=== PATIENT | male | born 1970 | race Caucasian/White ===

== ENCOUNTER 2017-02-08 10:10 | Outpatient (CLI) | payer BC, OTHER ==
[~2017-02-08] VITALS: Ht 180.3 cm; Wt 99.8 kg
[~2017-02-08 10:10] MED LIST: /BISO10TA; /PANT40TA; ACET65TA; AMLO10TA; AVAP300T; BISOPROLOL; CARV6.25 PO; CORE6.25; FENO145T PO; FEXO180T58 PO; FLUT1SPR2; HYDROCHLOROTHIAZIDE; LISI20TA PO; PROAAER10 INH; [UNRECOGNIZED DRUG - MIXTURE]; [UNRECOGNIZED DRUG - MIXTURE]; [UNRECOGNIZED DRUG - OTHER]
[2017-02-08] MEDS ORDERED: NS 1,000 ML IV ONE (10:15)
--- NOTE | 2017-02-08 10:52 | ROOR ---
Patient Name: Wiley Garcia Procedure Date: 02/08/2017 10:36 AM Date of : 1970 Age: 46 Room: [facility] Gender: Male Note Status: Finalized Procedure: Colonoscopy Indications: Screening for colorectal malignant neoplasm Providers: Lucas Hernandez Jr, MD Referring MD: LEXI FELIX Requesting Provider: Medicines: Propofol per Anesthesia Complications: No immediate complications. Procedure: Pre-Anesthesia Assessment: - Prior to the procedure, a History and Physical was performed, and patient medications and allergies were reviewed. The patient is competent. The risks and benefits of the procedure and the sedation options and risks were discussed with the patient. All questions were answered and informed consent was obtained. Patient identification and proposed procedure were verified by the physician and the nurse in the pre-procedure area and in the procedure room. Mental Status Examination: alert and oriented. Airway Examination: normal oropharyngeal airway and neck mobility. Respiratory Examination: clear to auscultation. CV Examination: normal. ASA Grade Assessment: II - A patient with mild systemic disease. After reviewing the risks and benefits, the patient was deemed in satisfactory condition to undergo the procedure. The anesthesia plan was to use moderate sedation / analgesia (conscious sedation). Immediately prior to administration of medications, the patient was re-assessed for adequacy to receive sedatives. The heart rate, respiratory rate, oxygen saturations, blood pressure, adequacy of pulmonary ventilation, and response to care were monitored throughout the procedure. The physical status of the patient was re-assessed after the procedure. The Colonoscope was introduced through the anus and advanced to the cecum, identified by appendiceal orifice and ileocecal valve. The colonoscopy was performed without difficulty. The patient tolerated the procedure well. The quality of the bowel preparation was adequate and good. Findings: The rectum, recto-sigmoid colon, descending colon, transverse colon, ascending colon, cecum, appendiceal orifice and ileocecal valve appeared normal. Multiple small-mouthed diverticula were found in the sigmoid colon. Impression: - The rectum, recto-sigmoid colon, descending colon, transverse colon, ascending colon, cecum, appendiceal orifice and ileocecal valve are normal. - Diverticulosis in the sigmoid colon. - No specimens collected. Recommendation: - Repeat colonoscopy in 10 years for screening purposes. Lucas Hernandez MD Lucas Hernandez Jr, MD 02/08/2017 10:51:49 AM This report has been signed electronically. Number of Addenda: 0 Note Initiated On: 02/08/2017 10:36 AM Estimated Blood Loss: Estimated blood loss: none.
[2017-02-08] MEDS ORDERED: PROPOFOL 200 MG/20 ML VIAL As Ordered ONE (11:12)
[2017-02-08] MEDS ORDERED: LIDOCAINE 2% INJ 100 MG/5 ML SDV (FOR ANES.) As Ordered ONE (11:12)
[2017-02-08 11:20] VITALS: BP 145/103
== END 2017-02-08 11:31 | disposition home or self-care (01) ==
LOC: M OPP 10:10
PROVIDERS: ATTEND Surgery
DX: Z12.11 Encounter for screening for malignant neoplasm of colon (principal); K57.92 Diverticulitis of intestine, part unspecified, without perforation or abscess without bleeding; K57.30 Diverticulosis of large intestine without perforation or abscess without bleeding; I10 Essential (primary) hypertension; E78.5 Hyperlipidemia, unspecified; Z87.09 Personal history of other diseases of the respiratory system; R06.83 Snoring; E53.8 Deficiency of other specified B group vitamins; D69.6 Thrombocytopenia, unspecified; D64.9 Anemia, unspecified; N52.9 Male erectile dysfunction, unspecified; Z88.5 Allergy status to narcotic agent; Z79.899 Other long term (current) drug therapy

== ENCOUNTER 2017-05-27 09:58 | Inpatient (IN) | payer BC, OTHER ==
[~2017-05-27] VITALS: Ht 180.3 cm; Wt 99.6 kg
[2017-05-27] MEDS ORDERED: NS 1,000 ML IV ONE ×3 (10:45→18:00)
[2017-05-27 11:01] LABS: BASO % 0.2 % (0.0-1.0); EOS % 0.3 % (0.0-3.0); IMMATURE GRANULOCYTE % 0.5 % (0-0); LYMPH # 0.8 10^3/uL (1.5-4.5); LYMPH % 8.8 % (24.0-44.0); MEAN CORPUSCULAR HEMOGLOBIN 35.2 pg (27.0-33.0); MEAN CORPUSCULAR VOLUME 97.9 fl (80.0-96.0); MONO # 0.8 10^3/uL (0.0-0.8); MONO % 9.5 % (0.0-5.0); NEUTROPHILS # 7.1 10^3/uL (1.8-7.7); NEUTROPHILS % 80.7 % (36.0-66.0); PLATELET COUNT, AUTOMATED 191 10^3/uL (150-450); RED CELL DISTRIBUTION WIDTH 11.1 % (11.5-14.5); WHITE BLOOD COUNT 8.7 10^3/uL (4.0-10.0)
[2017-05-27 11:12] LABS: ALBUMIN 3.2 GM/DL (3.2-5.2); ALBUMIN/GLOBULIN RATIO 0.64 (1.00-1.93); ALKALINE PHOSPHATASE 51 U/L (45-117); ALT/SGPT 25 U/L (12-78); ANION GAP 10 MEQ/L (8-16); AST/SGOT 20 U/L (7-37); BILIRUBIN,DIRECT 0.4 MG/DL (0.0-0.2); BILIRUBIN,TOTAL 1.2 MG/DL (0.2-1.0); BLOOD UREA NITROGEN 8 MG/DL (7-18); CALCIUM LEVEL 8.3 MG/DL (8.5-10.1); CARBON DIOXIDE LEVEL 28 MEQ/L (21-32); CHLORIDE LEVEL 89 MEQ/L (98-107); CREATININE FOR GFR 1.01 MG/DL (0.70-1.30); GLOMERULAR FILTRATION RATE > 60.0 (>60); GLUCOSE, FASTING 120 MG/DL (70-105); POTASSIUM SERUM 3.2 MEQ/L (3.5-5.1); SODIUM LEVEL 127 MEQ/L (136-145); TOTAL PROTEIN 8.2 GM/DL (6.4-8.2)
[2017-05-27 11:41] LABS: MUCUS, URINE RFX SMALL (NEGATIVE); SQUAM EPITHELIAL CELL UR AURFX 0 /HPF (0-6)
--- NOTE | 2017-05-27 12:47 | REP ---
PA and lateral chest: Comparison is 09/13/2009. The lung owens are clear. The cardiac size is normal The alber, mediastinum, and bony thorax are unremarkable. Impression: Negative PA and lateral chest. There is no interval change. Signed by Vasiliy Barajas MD 05/27/2017 12:39 P
[2017-05-27 12:48] LABS: FREE T4 1.14 NG/DL (0.76-1.46); OSMOLALITY SERUM 266 MOSM/KG (275-295)
--- NOTE | 2017-05-27 13:06 | REP ---
CT abdomen pelvis without IV and oral contrast: Comparison is 09/14/2014. There is pericolonic phlegmon of the distal sigmoid colon where yet crosses the midline from left to right, compatible with diverticulitis. There are numerous sigmoid diverticula. There is focal colonic wall thickening in the location of the diverticulitis which could be inflammatory or neoplastic. There are a few tiny air bubbles contained within the pericolonic phlegmon. There is no focal fluid collection. There is no pneumoperitoneum or ascites. The appendix is identified and is near the phlegmon but is unremarkable. The visualized lung owens are unremarkable. The unenhanced hepatic parenchyma, gallbladder, pancreas, spleen, adrenals and kidneys are unremarkable. The abdominal aorta is unremarkable. The bowel is otherwise unremarkable. Pelvis: The bladder is unremarkable. There are several vesicle calcifications. There is a calcified colonic appendage at the rectosigmoid junction. This is unchanged. Impression: Focal diverticulitis of the distal sigmoid colon in the right lower quadrant where the sigmoid crosses from left to right. There are is associated colonic bowel wall thickening, nonspecific, inflammatory versus neoplastic. The appendix has a normal appearance. There is no ascites or adenopathy. Signed by Vasiliy Barajas MD 05/27/2017 12:57 P
[2017-05-27] MEDS ORDERED: CIPROFLOXACIN 400 MG in APPROPRIATE DILUENT 1 EA IV ONE (14:15)
[2017-05-27] MEDS ORDERED: metroNIDAZOLE 500 MG in APPROPRIATE DILUENT 1 EA IV ONE (14:15)
[2017-05-27] MEDS ORDERED: ONDANSETRON 4MG/2ML VIAL (J2405) IV PRN (14:45)
[2017-05-27] MEDS ORDERED: POTASSIUM CHLORIDE 10 MEQ SR TABLET PO ONE (14:45)
[2017-05-27 15:13] LABS: MAGNESIUM LEVEL 1.7 MG/DL (1.8-2.4); URIC ACID 7.1 MG/DL (3.5-7.2)
[2017-05-27] MEDS ORDERED: ALBUTEROL 90 MCG/ACT 8GM HFA INHALER INH PRN (17:00)
[2017-05-27] MEDS ORDERED: FEXOFENADINE 60 MG TAB PO PRN (17:00)
[2017-05-27] MEDS ORDERED: FLUTICASONE PROP 0.05% NASAL SPRAY 16 GM (FLONASE) PRN (17:00)
--- NOTE | 2017-05-27 17:08 | HPE ---
DATE OF ADMISSION: 05/27/2017 PRIMARY CARE PROVIDER: Dr. Garcia. CHIEF COMPLAINT: Abdominal pain. HISTORY OF PRESENT ILLNESS: This is a 46-year-old male with a history of hypertension, diverticulitis. Colonoscopy by Dr. Hernandez in January 2017 showed diverticulosis. Had two prior episodes of diverticulitis in September 2014 and January 2017, who presented to the emergency room with pelvic and abdominal pain, left lower quadrant, since , described as pressure, persistent, on and off, prompting the patient to keep to a liquid diet. The patient feels better when he lies down. Describes the pain as intense. No medications taken. Had been drinking Gatorade and soups at home with no vomiting or nausea. Denies any fevers or chills. Denies dysuria, urgency, frequency, cough, shortness of breath, palpitations. In the emergency room was found to have acute diverticulitis, distal sigmoid colon in the right lower quadrant where the sigmoid crosses from left to right. The patient was afebrile with no white count. Sodium level 127, potassium 3.2. PAST MEDICAL HISTORY: 1. Diverticulitis. 2. Diverticulosis. 3. Hypertension. 4. Macrocytic anemia. 5. Chronic leukopenia. 6. Dyslipidemia. PAST SURGICAL HISTORY: 1. Colonoscopy. 2. [place] teeth extraction. 3. Hernia. ALLERGIES: No known drug allergies. HOME MEDICATIONS: - Coreg 6.25 mg twice a day - fexofenadine 180 daily - fluticasone as needed - albuterol as needed - fenofibrate 145 at night SOCIAL HISTORY: Social alcohol use. No cigarette use. 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 FAMILY HISTORY: Grandfather of myocardial infarction at age 62. Sister with hypothyroidism. REVIEW OF SYSTEMS: Per history of present illness. 12-point system negative. PHYSICAL EXAMINATION: Temperature 97.6, pulse 87, respiratory rate 18, blood pressure 131/83, 100% on room air. GENERAL: Awake, alert, oriented times three. Answering questions appropriately. Pupils are round, reactive. Anicteric sclerae. No jaundice. No jugular venous distention (JVD). Moist mucous membranes. LUNGS: Clear to auscultation. No wheezing or rales. HEART: S1, S2. Sinus. ABDOMEN: Soft. Tender in the left lower quadrant. Right lower quadrant with no rebound, guarding. Positive bowel sounds times four quadrants. EXTREMITIES: No edema. LABORATORY DATA: White count 8.7, hemoglobin 13, hematocrit 37, platelet count 191. Sodium 127, potassium 3.2, chloride 89, bicarbonate 28, BUN 8, creatinine 1, glucose 120. Chest x-ray negative. Lungs are clear. CT of the abdomen and pelvis with diverticulitis left distal sigmoid colon, right lower quadrant as it crosses from left to right. ASSESSMENT AND PLAN: 46-year-old male with a history of hypertension, chronic leukopenia, two prior episodes of diverticulitis, colonoscopy by Dr. Hernandez in January 2017 showed diverticulosis. He presents with a several day history of bilateral lower quadrant pain and found to have acute diverticulitis of the sigmoid colon as it crosses from left to right. The patient is being admitted as an inpatient for two midnights. Assigned to Dr. Breanna Young for the following issues: 1. Acute diverticulitis. Nothing by mouth status, IV fluids. Cipro, Flagyl intravenously. Surgical consultation with Dr. Hampton to assess bowel wall thickening. No signs of abscess. Afebrile. 2. Hypertension. Resume home dose of Coreg with holding parameters. 3. History of chronic leukopenia. Normal white count currently. 4. Deep vein thrombosis (DVT) prophylaxis. Subcutaneous Lovenox. The patient will be signed out to Dr. Young at 7:00 p.m. on 05/27/2017. [facility]
[2017-05-27 17:10] VITALS: BP 134/83
[2017-05-27] MEDS ORDERED: GLUCAGON FOR INJ 1 MG VIAL (J1610) SC PRN (18:00)
[2017-05-27] MEDS ORDERED: DEXTROSE 50% 50 ML SYRINGE IV PRN (18:00)
[2017-05-27] MEDS ORDERED: GLUCOSE 4 GM CHEW TABLET PO PRN (18:00)
[2017-05-27] MEDS ORDERED: MAG SULF 1GM/100ML (MAG RUN) 1 GM in APPROPRIATE DILUENT 1 EA IV ONE (18:00)
[2017-05-27] MEDS ORDERED: traMADol 50 MG TAB PO PRN (18:00)
[2017-05-27] MEDS ORDERED: MORPHINE 2 MG/ML 1ML SYRINGE IV PRN (18:00)
[2017-05-27 18:43] LABS: ANION GAP 6 MEQ/L (8-16); BLOOD UREA NITROGEN 7 MG/DL (7-18); CALCIUM LEVEL 7.9 MG/DL (8.5-10.1); CARBON DIOXIDE LEVEL 29 MEQ/L (21-32); CHLORIDE LEVEL 95 MEQ/L (98-107); CREATININE FOR GFR 0.76 MG/DL (0.70-1.30); GLOMERULAR FILTRATION RATE > 60.0 (>60); GLUCOSE, FASTING 103 MG/DL (70-105); POTASSIUM SERUM 3.6 MEQ/L (3.5-5.1); SODIUM LEVEL 130 MEQ/L (136-145)
[2017-05-27 20:00] VITALS: BP 136/91
[2017-05-27] MEDS: CARVedilol 6.25 MG TAB PO SCH (20:18)
[2017-05-27] MEDS ORDERED: FENOFIBRATE 145 MG TAB (TRICOR) PO SCH (21:00)
[2017-05-27] MEDS ORDERED: ENOXAPARIN 40 MG/0.4 ML SYRINGE (J1650) SC SCH (21:00)
[2017-05-27 23:15] LABS: ANION GAP 8 MEQ/L (8-16); BLOOD UREA NITROGEN 7 MG/DL (7-18); CALCIUM LEVEL 7.9 MG/DL (8.5-10.1); CARBON DIOXIDE LEVEL 26 MEQ/L (21-32); CHLORIDE LEVEL 98 MEQ/L (98-107); CREATININE FOR GFR 0.83 MG/DL (0.70-1.30); GLOMERULAR FILTRATION RATE > 60.0 (>60); GLUCOSE, FASTING 103 MG/DL (70-105); POTASSIUM SERUM 3.9 MEQ/L (3.5-5.1); SODIUM LEVEL 132 MEQ/L (136-145)
[2017-05-28] MEDS ORDERED: metroNIDAZOLE 500 MG in APPROPRIATE DILUENT 1 EA IV ONE ×2
[2017-05-28 04:00] VITALS: BP 121/69
[2017-05-28] MEDS ORDERED: CIPROFLOXACIN 400 MG in APPROPRIATE DILUENT 1 EA IV SCH (04:00)
[2017-05-28 06:56] LABS: BASO % 0.3 % (0.0-1.0); EOS % 0.6 % (0.0-3.0); IMMATURE GRANULOCYTE % 0.6 % (0-0); LYMPH % 15.4 % (24.0-44.0); MEAN CORPUSCULAR HEMOGLOBIN 35.4 pg (27.0-33.0); MEAN CORPUSCULAR HGB CONC 35.7 g/dl (32.0-36.5); MONO # 0.9 10^3/uL (0.0-0.8); MONO % 13.3 % (0.0-5.0); NEUTROPHILS # 4.4 10^3/uL (1.8-7.7); NEUTROPHILS % 69.8 % (36.0-66.0); PLATELET COUNT, AUTOMATED 166 10^3/uL (150-450); RED CELL DISTRIBUTION WIDTH 11.3 % (11.5-14.5); WHITE BLOOD COUNT 6.4 10^3/uL (4.0-10.0)
[2017-05-28 07:19] LABS: ANION GAP 10 MEQ/L (8-16); BLOOD UREA NITROGEN 8 MG/DL (7-18); CARBON DIOXIDE LEVEL 25 MEQ/L (21-32); CHLORIDE LEVEL 99 MEQ/L (98-107); CREATININE FOR GFR 0.75 MG/DL (0.70-1.30); GLOMERULAR FILTRATION RATE > 60.0 (>60); GLUCOSE, FASTING 100 MG/DL (70-105); MAGNESIUM LEVEL 2.1 MG/DL (1.8-2.4); POTASSIUM SERUM 3.5 MEQ/L (3.5-5.1); SODIUM LEVEL 134 MEQ/L (136-145)
[2017-05-28] MEDS ORDERED: metroNIDAZOLE 500 MG in APPROPRIATE DILUENT 1 EA IV SCH (08:00)
[2017-05-28 08:02] VITALS: BP 144/94
[2017-05-28 08:04] VITALS: BP 144/94
[2017-05-28] MEDS: CARVedilol 6.25 MG TAB PO SCH (08:04)
[2017-05-28 10:40] LABS: FOLATE 15.1 NG/ML (>5.4)
[2017-05-28] MEDS ORDERED: FLAG500T PO (11:23)
[2017-05-28] MEDS ORDERED: CIPR-249 PO (11:23)
--- NOTE | 2017-05-28 17:33 | DS.PDOC ---
Discharge Summary General Date of Admission May 27, 2017 at 14:35 Date of Discharge 05/28/2017 Discharge Summary PRIMARY CARE PHYSICIAN: Jose Chanel ATTENDING AT TIME OF DISCHARGE: Dr. Young DISCHARGE DIAGNOS(E)S: 1. Acute diverticulitis with a history of diverticulosis 2. Hypertension 3. History of chronic leukopenia, white count normal during this hospitalization 4. History of macrocytic anemia 5. Dyslipidemia 6. Hyponatremia HPI & HOSPITAL COURSE: Mr. Garcia is a 46-year-old male who presented to the emergency department with abdominal pain. A CT of the abdomen and pelvis shows focal diverticulitis of the distal sigmoid colon with associated colonic mural thickening. The case was discussed with Dr. Hampton of general surgery who does not feel that the mural thickening requires any acute intervention. It is her recommendation that we continue conservative measures such as a low residual diet and ciprofloxacin and metronidazole. The patient was feeling significantly better this morning, he did tolerate his breakfast and lunch without any issues, and he does appear to be stable for discharge at this time. While inpatient a vitamin B12 and folate were checked, B12 was slightly elevated , folate was within normal limits. He was found to be hyponatremic upon admission, however this has slowly improved with the administration of normal saline and his most recent Sodium was 134; it is supposed that this is secondary to an essentially liquid diet for the past 3-4 days (as patient felt that this would help resolve the abdominal pain). PHYSICAL EXAMINATION ON DISCHARGE: GENERAL: Awake, alert, oriented. He is in no acute distress. CARDIOVASCULAR EXAMINATION: Regular rate and rhythm, with no rubs, gallops, or murmur. RESPIRATORY EXAMINATION: Clear to auscultation bilaterally with no wheezes, rales, or rhonchi. ABDOMINAL EXAMINATION: Soft, nontender, nondistended. Bowel sounds present. EXTREMITIES: No clubbing or edema noted. 2+ pulses in the radial bilaterally. DISPOSITION: Home DISCHARGE INSTRUCTIONS: Follow-up with primary care provider Jose Chanel on 06/05/2017 at 11:15 AM. Also follow-up with Dr. Hernandez on 06/18/2017 at 3:40 PM. Activity as tolerated. Recommend a low residual diet for at least the next few weeks. He dietitian did come and discuss with him what a low residual diet is, and he was provided with handouts. If symptoms return, or if you experience worsening of your symptoms, please call your doctor or return to the emergency department. ITEMS THAT NEED OUTPATIENT FOLLOWUP: No pending labs or studies at this time. My preceptor for this patient encounter was physically present in the building during the encounter and was fully available. As needed, all aspects of the patient interview, examination, medical decision making process, and medical care plan development were reviewed and approved by the preceptor. Preceptor is aware and concurs with the plan as stated in the body of this note and will attest to such by his/her cosignature. Vital Signs/I&Os Vital Signs Date Time Temp Pulse Resp B/P (MAP) Pulse Ox O2 Delivery O2 Flow Rate FiO2 05/28/17 08:04 77 144/94 05/28/17 08:02 98.1 18 98 Room Air I&O- Last 24 Hours up to 6 AM 05/29/17 06:00 Intake Total 720 ml Output Total 500 ml Balance 220 ml Laboratory Data Labs 24H Laboratory Tests 2 05/27/17 18:06: Anion Gap 6L, Glomerular Filtration Rate > 60.0, Blood Urea Nitrogen 7, Creatinine 0.76, Sodium Level 130L, Potassium Level 3.6, Chloride Level 95L, Carbon Dioxide Level 29, Calcium Level 7.9L 05/27/17 22:44: Anion Gap 8, Glomerular Filtration Rate > 60.0, Blood Urea Nitrogen 7, Creatinine 0.83, Sodium Level 132L, Potassium Level 3.9, Chloride Level 98, Carbon Dioxide Level 26, Calcium Level 7.9L 05/28/17 06:42: Anion Gap 10, Glomerular Filtration Rate > 60.0, Blood Urea Nitrogen 8, Creatinine 0.75, Sodium Level 134L, Potassium Level 3.5, Chloride Level 99, Carbon Dioxide Level 25, Calcium Level 8.0L, Magnesium Level 2.1, Vitamin B12 Level 1386H, Folate 15.1, Thyroid Stimulating Hormone (TSH) 1.880 05/28/17 06:43: Immature Granulocyte % (Auto) 0.6H, White Blood Count 6.4, Red Blood Count 3.14L , Hemoglobin 11.1#L, Hematocrit 31.1L, Mean Corpuscular Volume 99.0H, Mean Corpuscular Hemoglobin 35.4H, Mean Corpuscular Hemoglobin Concent 35.7, Red Cell Distribution Width 11.3L, Platelet Count 166, Neutrophils (%) (Auto) 69.8H , Lymphocytes (%) (Auto) 15.4L, Monocytes (%) (Auto) 13.3H, Eosinophils (%) ( Auto) 0.6, Basophils (%) (Auto) 0.3, Neutrophils # (Auto) 4.4, Lymphocytes # ( Auto) 1.0L, Monocytes # (Auto) 0.9H, Eosinophils # (Auto) 0.0, Basophils # (Auto ) 0.0, Immature Granulocyte # (Auto) 0.0, Nucleated Red Blood Cells % (auto) 0.0 CBC/BMP Laboratory Tests 05/27/17 18:06 Calcium Level 7.9 L 05/27/17 22:44 Calcium Level 7.9 L 05/28/17 06:42 Calcium Level 8.0 L 05/28/17 06:43 Red Blood Count 3.14 L, Mean Corpuscular Volume 99.0 H, Mean Corpuscular Hemoglobin 35.4 H, Mean Corpuscular Hemoglobin Concent 35.7, Red Cell Distribution Width 11.3 L, Neutrophils (%) (Auto) 69.8 H, Lymphocytes (%) (Auto ) 15.4 L, Monocytes (%) (Auto) 13.3 H, Eosinophils (%) (Auto) 0.6, Basophils (% ) (Auto) 0.3, Neutrophils # (Auto) 4.4, Lymphocytes # (Auto) 1.0 L, Monocytes # (Auto) 0.9 H, Eosinophils # (Auto) 0.0, Basophils # (Auto) 0.0 Discharge Medications Scheduled (Lisinopril/Hydrochlorothi 20-12.5 mg) 1 Tab Tab, 1 TAB PO QAM, (Reported) Carvedilol (Carvedilol) 6.25 Mg Tab, 6.25 MG PO BID, (Reported) Ciprofloxacin HCl (Cipro) 500 Mg Tab, 500 MG PO BID Fenofibrate (Fenofibrate) 145 Mg Tab, 145 MG PO QHS, (Reported) Metronidazole (Flagyl) 500 Mg Tab, 500 MG PO Q6H Scheduled PRN Albuterol Sulfate (Proair Hfa) 108 Mcg/Act Aer, 2 PUFF INH QID PRN for WHEEZING, (Reported) Fexofenadine Hydrochloride (Fexofenadine HCl) 180 Mg Tab, 180 MG PO DAILY PRN for allergies, (Reported) Fluticasone Propionate (Fluticasone Propionate 0.05%) 120 [place]/16 Gm Naspr, 1 SPRAY NA DAILY PRN for CONGESTION, (Reported) PER NOSTRIL Allergies Coded Allergies: Codeine (Verified Adverse Reaction, Mild, [place], 09/16/12) FREDDY DEAN DO May 28, 2017 17:33
== END 2017-05-28 13:20 | disposition home or self-care (01) | DRG 244 ==
LOC: M ED 09:58 → M ED INP 14:35 → M PED 17:15
PROVIDERS: ADMIT General Practice; ATTEND Internal Medicine
DX: K57.32 Diverticulitis of large intestine without perforation or abscess without bleeding (principal); E87.1 Hypo-osmolality and hyponatremia; I10 Essential (primary) hypertension; D53.9 Nutritional anemia, unspecified; E78.5 Hyperlipidemia, unspecified; Z79.899 Other long term (current) drug therapy; Z88.5 Allergy status to narcotic agent

== ENCOUNTER 2018-05-31 20:17 | Emergency (ER) | payer BC, OTHER ==
[~2018-05-31] VITALS: Ht 180.3 cm; Wt 39.7 kg
[~2018-05-31 20:17] MED LIST changes: +CIPR-249 PO; -FENO145T PO; +FENO145T13 PO; +FLAG500T PO
[2018-05-31] MEDS ORDERED: ASPIRIN 81 MG CHEW TABLET PO ONE (20:45)
[2018-05-31 20:51] LABS: BASO # 0.1 10^3/uL (0.0-0.2); BASO % 1.1 % (0.0-1.0); EOS # 0.2 10^3/uL (0.0-0.50); EOS % 4.2 % (0.0-3.0); HEMATOCRIT 39.4 % (42.0-52.0); HEMOGLOBIN 14.5 g/dl (13.5-17.5); LYMPH # 0.7 10^3/uL (1.5-4.5); LYMPH % 15.3 % (24.0-44.0); MEAN CORPUSCULAR HEMOGLOBIN 37.6 pg (27.0-33.0); MEAN CORPUSCULAR HGB CONC 36.8 g/dl (32.0-36.5); MEAN CORPUSCULAR VOLUME 102.1 fl (80.0-96.0); MONO # 0.9 10^3/uL (0.0-0.8); MONO % 18.8 % (0.0-5.0); NEUTROPHILS # 2.7 10^3/uL (1.8-7.7); NEUTROPHILS % 60.4 % (36.0-66.0); PLATELET COUNT, AUTOMATED 137 10^3/uL (150-450); RED BLOOD COUNT 3.86 10^6/uL (4.30-6.10); WHITE BLOOD COUNT 4.5 10^3/uL (4.0-10.0)
[2018-05-31 21:00] LABS: INR 0.9; PROTHROMBIN TIME 12.2 SECONDS (12.1-14.4)
[2018-05-31 21:13] LABS: ALBUMIN 3.8 GM/DL (3.2-5.2); ALT/SGPT 50 U/L (12-78); BILIRUBIN,DIRECT 0.5 MG/DL (0.0-0.2); BILIRUBIN,TOTAL 1.5 MG/DL (0.2-1.0); BLOOD UREA NITROGEN 7 MG/DL (7-18); CALCIUM LEVEL 8.5 MG/DL (8.5-10.1); CARBON DIOXIDE LEVEL 26 MEQ/L (21-32); CHLORIDE LEVEL 93 MEQ/L (98-107); CK-MB VALUE MASS < 1.0 NG/ML (<3.6); CPK CREATINE PHOSPHOKINASE 98 U/L (39-308); GLOMERULAR FILTRATION RATE > 60.0 (>60); GLUCOSE, FASTING 140 MG/DL (70-100); LIPASE 198 U/L (73-393); MB/CK RELATIVE INDEX 1.02 (< OR =4); POTASSIUM SERUM 3.8 MEQ/L (3.5-5.1); SODIUM LEVEL 131 MEQ/L (136-145); TOTAL PROTEIN 7.4 GM/DL (6.4-8.2); TROPONIN I < 0.02 NG/ML (< 0.10)
[2018-05-31] MEDS ORDERED: ISOVUE-370 76% 100ML VIAL (Q9967) As Ordered ONE (21:44)
[2018-05-31] MEDS ORDERED: NS 1,000 ML IV ONE (21:45)
[2018-05-31] MEDS ORDERED: CARVedilol 6.25 MG TAB PO ONE (21:45)
--- NOTE | 2018-05-31 22:49 | REPVR ---
EXAM: CT Angiography Chest With Contrast EXAM DATE/TIME: 05/31/2018 9:58 PM CLINICAL HISTORY: 47 years old, male; Pain; Chest pain; Type not specified TECHNIQUE: Axial computed tomographic angiography images of the chest with intravenous contrast using CT angiography protocol. All CT scans at this facility use at least one of these dose optimization techniques: automated exposure control; mA and/or kV adjustment per patient size (includes targeted exams where dose is matched to clinical indication); or iterative reconstruction. Coronal and sagittal reformatted images were created and reviewed. MIP reconstructed images were created and reviewed. CONTRAST: 75 ml of isovue 370 administered intravenously. COMPARISON: CR PORTABLE CHEST X-RAY 05/31/2018 8:42 PM FINDINGS: Pulmonary arteries: Contrast opacification satisfactory. No intraluminal filling defect. Aorta: Unremarkable. No aneurysm or dissection. Lungs: Mild central peribronchial thickening, suggestive of airway inflammation. Minimal linear stranding and groundglass, likely due to atelectasis and/or scarring. No focal consolidation. Pleural space: Unremarkable. No pneumothorax. No pleural effusion. Heart: Unremarkable. No cardiomegaly. No pericardial effusion. Mediastinum: Small hiatal hernia. Lymph nodes: No pathologically enlarged lymph nodes. Bones/joints: No acute osseous abnormality. Degenerative changes. Soft tissues: Unremarkable. IMPRESSION: 1. No CT evidence of pulmonary embolism, aortic aneurysm or dissection. 2. Additional findings, as above. Electronically signed by: Jose Villanueva On 05/31/2018 22:49:07 PM
[2018-06-01] MEDS ORDERED: NS 500 ML IV ONE (01:00)
[2018-06-01 02:30] VITALS: BP 158/108
[2018-06-01] MEDS ORDERED: hydrALAZINE INJ 20 MG/ML VIAL IV ONE (02:30)
[2018-06-01 02:42] LABS: CK-MB VALUE MASS < 1.0 NG/ML (<3.6); CPK CREATINE PHOSPHOKINASE 80 U/L (39-308); MB/CK RELATIVE INDEX 1.25 (< OR =4); TROPONIN I < 0.02 NG/ML (< 0.10)
[2018-06-01] MEDS ORDERED: LISI10TA4 PO (03:06)
[2018-06-01] MEDS ORDERED: LISI-538 PO (03:44)
[2018-06-01 03:59] VITALS: BP 176/104
--- NOTE | 2018-06-01 05:53 | REP ---
Clinical: Acute chest pain . Comparison: 07/19/2017 . Findings: The mediastinum and cardiac silhouette are stable and within normal limits for portable technique. The lung owens are clear without acute consolidation, effusion, or pneumothorax. Skeletal structures are intact. Impression: No acute cardiopulmonary process appreciated. Electronically Signed by Camacho Hercules MD 06/01/2018 05:44 A
--- NOTE | 2018-06-01 20:02 | ECGEPIP ---
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
--- NOTE | 2018-06-01 20:07 | ECGEPIP ---
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
== END 2018-06-01 04:00 | disposition home or self-care (01) ==
LOC: M ED 20:17
DX: R07.89 Other chest pain (principal); I10 Essential (primary) hypertension; Z79.899 Other long term (current) drug therapy; Z88.5 Allergy status to narcotic agent
CPT/HCPCS: 71045; 71275; 80053; 82248; 82550; 82553; 83690; 84484; 85025; 85610; 93005; 93041; 94760; 96361; 96374; 99285; Q9967

== ENCOUNTER → 2019-12-11 | Outpatient (REF) | payer BC, OTHER ==
[~2019-12-11] MED LIST changes: -/BISO10TA; -/PANT40TA; -FENO145T13 PO; +FENO145T7 PO; +LISI-538 PO; +LISI10TA4 PO; -LISI20TA PO; +LISI20TA35 PO; +PROT1TAB2; +ZEBE1TAB
[2019-12-11 17:50] LABS: OSMOLALITY URINE 651 MOSM/KG (500-800)
[2019-12-11 17:57] LABS: FERRITIN 86 NG/ML (26-388); IRON (FE) 162 UG/DL (65-175); PERCENT SATURATION 45.1 % (19.7-50.0); TOTAL IRON BINDING CAPACITY 359 UG/DL (250-450)
[2019-12-11 18:03] LABS: SODIUM,RANDOM URINE 111 MEQ/L
[2019-12-11 18:05] LABS: FOLATE > 24.0 NG/ML
[2019-12-11 18:12] LABS: OSMOLALITY SERUM 270 MOSM/KG (275-295)
[2019-12-11 18:32] LABS: VITAMIN B12 LEVEL 1097 PG/ML
[2019-12-17 17:07] LABS: Methylmalonic Acid 417 nmol/L (0-378)
== END ==
LOC: M LAB REF 17:06
PROVIDERS: ATTEND Internal Medicine Nephrology
DX: E87.1 Hypo-osmolality and hyponatremia (principal); I12.9 Hypertensive chronic kidney disease with stage 1 through stage 4 chronic kidney disease, or unspecified chronic kidney disease; D64.9 Anemia, unspecified; D53.1 Other megaloblastic anemias, not elsewhere classified

== ENCOUNTER → 2020-06-01 | Outpatient (CLI) | payer BC, OTHER | LOC: M LABSMTC 13:28 | PROVIDERS: ATTEND Family Medicine | DX: Z20.828 Contact with and (suspected) exposure to other viral communicable diseases (principal) ==

== ENCOUNTER → 2020-11-04 | Outpatient (REF) | payer BC, OTHER ==
[~2020-11-04] MED LIST changes: -LISI-538 PO; +LISI10TA22 PO; -LISI10TA4 PO; +LISI20TA33 PO
[2020-11-04 18:41] LABS: FOLATE > 24.0 NG/ML; VITAMIN B12 LEVEL > 2000 PG/ML
== END ==
LOC: M LAB REF 17:06
PROVIDERS: ATTEND Internal Medicine Nephrology
DX: D53.1 Other megaloblastic anemias, not elsewhere classified (principal)

== ENCOUNTER → 2020-11-23 | Outpatient (REF) | payer OTHER, BC | LOC: M LAB REF 17:13 | PROVIDERS: ATTEND Otolaryngology | DX: D37.02 Neoplasm of uncertain behavior of tongue (principal) ==

== ENCOUNTER → 2020-12-14 | Outpatient (CLI) | payer BC, OTHER ==
--- NOTE | 2020-12-14 14:07 | REP ---
INDICATION: STAGING MALIGNANT NEOPLASM OF TONGUE. 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 COMPARISON: None. TECHNIQUE: Forty-five minutes following the intravenous injection of a 9.32 mCi dose of F-18 FDG, three-dimensional PET scintigraphy is acquired from the skull base to the proximal thighs. Triplanar noncontrast CT scanning is acquired through the same anatomic range for attenuation correction, and image registration with scan parameters optimized to minimize radiation exposure to the patient. PET scintigraphy and CT datasets were fused and displayed on a workstation with multiplanar and projection display capability. FINDINGS: There is a focus of moderate to high metabolic activity in the region of the anterior tongue on the right side. Maximum standard uptake value here is 13.16. This corresponds with history of a squamous cell carcinoma of the right anterior 2/3 of the tongue. There is no evidence of hypermetabolic cervical lymphadenopathy. No enlarged lymph nodes are seen. No abnormal hypermetabolic uptake is seen within the thorax. In the abdomen and pelvis, normal hepatic, splenic, gastrointestinal, and genitourinary FDG accumulation is seen. No abnormal hypermetabolic uptake is seen in the abdomen or pelvis. No abnormal skeletal uptake is observed. IMPRESSION: Hypermetabolic uptake is noted in the anterior tongue on the right side. No abnormal beth or distant metastatic hypermetabolic uptake is appreciated. <Electronically signed by Sebastian Garza > 12/14/20 [id number]
== END ==
LOC: M PLARAD 07:34
PROVIDERS: ATTEND Otolaryngology
DX: C02.3 Malignant neoplasm of anterior two-thirds of tongue, part unspecified (principal)
CPT/HCPCS: 78815; A9552

== ENCOUNTER → 2021-09-29 | Outpatient (REF) | payer BC, OTHER ==
[~2021-09-29] MED LIST changes: +FEXO-117 PO; -FEXO180T58 PO
[2021-09-30 20:04] LABS: FOLATE 15.8 NG/ML
== END ==
LOC: M LAB REF 16:47
PROVIDERS: ATTEND Internal Medicine Nephrology
DX: D51.9 Vitamin B12 deficiency anemia, unspecified (principal)

== ENCOUNTER 2021-12-25 14:25 | Inpatient (IN) | payer BC, OTHER ==
[~2021-12-25] VITALS: Ht 180.3 cm; Wt 66.5 kg
[2021-12-25] MEDS ORDERED: XARE20TA PO (14:45)
[2021-12-25] MEDS ORDERED: OMEP-173 PO (14:45)
[2021-12-25] MEDS ORDERED: CARV12.5 PO (14:45)
[2021-12-25 16:07] LABS: BASO % 0.3 % (0.0-1.0); HEMATOCRIT 43.9 % (42.0-52.0); HEMOGLOBIN 15.6 g/dl (13.5-17.5); LYMPH # 0.3 10^3/uL (1.5-5.0); LYMPH % 9.2 % (24.0-44.0); MEAN CORPUSCULAR HEMOGLOBIN 40.8 pg (27.0-33.0); MEAN CORPUSCULAR HGB CONC 35.5 g/dl (32.0-36.5); MONO # 0.5 10^3/uL (0.0-0.8); MONO % 14.2 % (2.0-8.0); NEUTROPHILS # 2.4 10^3/uL (1.5-8.5); NEUTROPHILS % 76.3 % (36.0-66.0); PLATELET COUNT, AUTOMATED 123 10^3/uL (150-450); RED BLOOD COUNT 3.82 10^6/uL (4.30-6.10); WHITE BLOOD COUNT 3.2 10^3/uL (4.0-10.0)
[2021-12-25 16:19] LABS: MEAN CORPUSCULAR VOLUME 114.9 fl (80.0-96.0)
[2021-12-25] MEDS ORDERED: NS 1,000 ML IV ONE (16:35)
[2021-12-25] MEDS ORDERED: ONDANSETRON 4MG 2ML VIAL IV ONE (16:35)
[2021-12-25 16:48] LABS: PLATELET ESTIMATE DECREASED (NORMAL)
[2021-12-25 16:51] LABS: ERYTHROCYTE SEDIMENTATION RATE 1 mm/hr (0-20)
[2021-12-25 16:55] LABS: ALBUMIN 3.1 GM/DL (3.2-5.2); BILIRUBIN,DIRECT 1.4 MG/DL (0.0-0.2); BILIRUBIN,TOTAL 2.3 MG/DL (0.2-1.0); C REACTIVE PROTEIN QUANTITATIV 0.3 MG/DL (0.00-0.30); CALCIUM LEVEL 8.4 MG/DL (8.5-10.1); CREATININE FOR GFR 1.51 MG/DL (0.70-1.30); GLOMERULAR FILTRATION RATE 52.1 (>56); TOTAL PROTEIN 7.1 GM/DL (6.4-8.2)
[2021-12-25 17:10] LABS: INR 1.41; PARTIAL THROMBOPLASTIN TIME 26.9 SECONDS (25.9-37.0); PROTHROMBIN TIME 17.7 SECONDS (12.7-14.5)
[2021-12-25] MEDS ORDERED: ISOVUE-370 76% 100ML VIAL As Ordered ONE (17:33)
[2021-12-25] MEDS ORDERED: CYAN100049 PO (20:27)
[2021-12-25] MEDS ORDERED: FOLI400T13 PO (20:27)
[2021-12-25] MEDS ORDERED: VITA100093 PO (20:27)
[2021-12-25] MEDS ORDERED: MONT10TA97 PO (20:27)
[2021-12-25] MEDS ORDERED: HOME MED LIST COMPLETE! XX SCH (20:30)
[2021-12-25 20:40] LABS: CK-MB VALUE MASS 7.2 NG/ML (<3.6); MB/CK RELATIVE INDEX 1.13 (< OR =4)
[2021-12-25] MEDS ORDERED: FENOFIBRATE 145MG TABLET (TRICOR) PO SCH (21:00)
[2021-12-25] MEDS ORDERED: SENNA 8.6 MG TAB (SENOKOT) PO SCH (21:00)
[2021-12-25] MEDS: DOCUSATE SOD LIQ 100MG/10ML UDC PO SCH (21:00)
[2021-12-25] MEDS: CARVedilol 12.5 MG TAB PO SCH (21:00)
[2021-12-25] MEDS: MONTELUKAST 10 MG TAB PO SCH (21:00)
[2021-12-25] MEDS: NS 1,000 ML IV SCH (22:10)
[2021-12-25] MEDS ORDERED: PROCHLORPERAZINE 10MG 2ML VIAL IV PRN (22:10)
[2021-12-25] MEDS: PANTOPRAZOLE 40MG VIAL IV SCH (22:22)
[2021-12-25 22:58] LABS: AMPHETAMINES LEVEL URINE NEGATIVE (NEGATIVE); BARBITURATES URINE NEGATIVE (NEGATIVE); BENZODIAZEPINES URINE NEGATIVE (NEGATIVE); CANNABINOIDS URINE NEGATIVE (NEGATIVE); COCAINE METABOLITE URINE NEGATIVE (NEGATIVE); METHADONE URINE NEGATIVE (NEGATIVE); OPIATES URINE NEGATIVE (NEGATIVE); PHENCYCLIDINE URINE NEGATIVE (NEGATIVE)
[2021-12-25] MEDS ORDERED: BISACODYL 10 MG SUPP PR ONE (23:00)
[2021-12-26 00:12] LABS: HEMATOCRIT 39.1 % (42.0-52.0); HEMOGLOBIN 13.7 g/dl (13.5-17.5)
[2021-12-26 00:45] VITALS: BP 122/87
[2021-12-26] MEDS: NS 1,000 ML IV SCH (02:59)
[2021-12-26] MEDS: ONDANSETRON 4MG 2ML VIAL IV PRN ×4 (03:00→17:01)
[2021-12-26 04:37] VITALS: BP 119/79
[2021-12-26 06:25] LABS: HEMATOCRIT 35.8 % (42.0-52.0); HEMOGLOBIN 12.6 g/dl (13.5-17.5); LYMPH # 0.4 10^3/uL (1.5-5.0); LYMPH % 13.4 % (24.0-44.0); MEAN CORPUSCULAR HEMOGLOBIN 40.9 pg (27.0-33.0); MEAN CORPUSCULAR HGB CONC 35.2 g/dl (32.0-36.5); MONO # 0.5 10^3/uL (0.0-0.8); MONO % 16.9 % (2.0-8.0); NEUTROPHILS # 2.1 10^3/uL (1.5-8.5); NEUTROPHILS % 69.4 % (36.0-66.0); RED BLOOD COUNT 3.08 10^6/uL (4.30-6.10); WHITE BLOOD COUNT 3.1 10^3/uL (4.0-10.0)
[2021-12-26 06:44] LABS: BLOOD UREA NITROGEN 6 MG/DL (7-18); CALCIUM LEVEL 7.8 MG/DL (8.5-10.1); CARBON DIOXIDE LEVEL 28 MEQ/L (21-32); CHLORIDE LEVEL 101 MEQ/L (98-107); CREATININE FOR GFR 0.72 MG/DL (0.70-1.30); GLOMERULAR FILTRATION RATE > 60.0 (>56); GLUCOSE, FASTING 106 MG/DL (70-100); POTASSIUM SERUM 3.2 MEQ/L (3.5-5.1); SODIUM LEVEL 136 MEQ/L (136-145)
[2021-12-26 07:25] LABS: MEAN CORPUSCULAR VOLUME 116.2 fl (80.0-96.0)
[2021-12-26 07:26] LABS: PLATELET COUNT, AUTOMATED 86 10^3/uL (150-450)
[2021-12-26 07:27] LABS: PLATELET ESTIMATE DECREASED (NORMAL)
[2021-12-26 07:29] LABS: TEAR DROP CELLS 1+
[2021-12-26 08:00] VITALS: BP 123/81
[2021-12-26] MEDS ORDERED: POTASSIUM CHLORIDE 10MEQ SR TABLET PO ONE (08:05)
[2021-12-26] MEDS ORDERED: FLEET ENEMA PR PRN (08:10)
[2021-12-26] MEDS: MOM 30ML SUSPENSION UDC PO SCH ×2 (08:36→20:06)
[2021-12-26] MEDS: LACTULOSE 20 GM/30 ML SYRUP UD PO SCH ×4 (08:36→20:06)
[2021-12-26] MEDS: PANTOPRAZOLE 40MG VIAL IV SCH ×2 (08:36→20:06)
[2021-12-26] MEDS: CARVedilol 12.5 MG TAB PO SCH ×2 (08:36→20:06)
[2021-12-26] MEDS: DOCUSATE SOD LIQ 100MG/10ML UDC PO SCH ×2 (08:36→20:06)
[2021-12-26] MEDS: MAG SULF 1GM/100ML (MAG RUN) 1 GM in IV 1 EA IV SCH ×2 (08:37→08:40)
[2021-12-26] MEDS ORDERED: MIRALAX *UNIT DOSE* 17GM PACKET PO SCH (09:00)
[2021-12-26] MEDS ORDERED: CYANOCOBALAMIN 500 MCG TAB PO SCH (09:00)
[2021-12-26] MEDS ORDERED: VITAMIN D 1,000 INTERNATIONAL UNITS TABLET PO SCH (09:00)
[2021-12-26 10:30] LABS: HEMOGLOBIN 12.7 g/dl (13.5-17.5)
[2021-12-26] MEDS ORDERED: KCL 10MEQ/100ML SWI (KRUN) 10 MEQ in IV 1 EA IV SCH (11:00)
[2021-12-26] MEDS ORDERED: MORPHINE 2 MG/ML 1ML VIAL IV PRN (11:20)
[2021-12-26] MEDS ORDERED: POTASSIUM CHLORIDE 10% LIQ 20 MEQ/15 ML UDC PO ONE (12:30)
[2021-12-26 16:00] VITALS: BP 112/81
[2021-12-26 19:30] VITALS: BP 123/88
[2021-12-26] MEDS: MONTELUKAST 10 MG TAB PO SCH (20:06)
[2021-12-27] MEDS: LACTULOSE 20 GM/30 ML SYRUP UD PO SCH ×3 (00:58→08:57)
[2021-12-27] MEDS: ONDANSETRON 4MG 2ML VIAL IV PRN ×3 (00:58→21:44)
[2021-12-27 04:12] VITALS: BP 136/94
[2021-12-27 06:39] LABS: HEMATOCRIT 35.7 % (42.0-52.0); HEMOGLOBIN 12.5 g/dl (13.5-17.5); LYMPH # 0.3 10^3/uL (1.5-5.0); LYMPH % 9.2 % (24.0-44.0); MEAN CORPUSCULAR HEMOGLOBIN 40.3 pg (27.0-33.0); MONO # 0.3 10^3/uL (0.0-0.8); MONO % 10.9 % (2.0-8.0); NEUTROPHILS # 2.3 10^3/uL (1.5-8.5); NEUTROPHILS % 79.6 % (36.0-66.0); WHITE BLOOD COUNT 2.9 10^3/uL (4.0-10.0)
[2021-12-27 06:48] LABS: MEAN CORPUSCULAR VOLUME 115.2 fl (80.0-96.0); PLATELET COUNT, AUTOMATED 77 10^3/uL (150-450)
[2021-12-27 07:05] LABS: BLOOD UREA NITROGEN 13 MG/DL (7-18); CALCIUM LEVEL 8.2 MG/DL (8.5-10.1); CARBON DIOXIDE LEVEL 32 MEQ/L (21-32); CHLORIDE LEVEL 104 MEQ/L (98-107); CREATININE FOR GFR 0.68 MG/DL (0.70-1.30); GLOMERULAR FILTRATION RATE > 60.0 (>56); GLUCOSE, FASTING 122 MG/DL (70-100); POTASSIUM SERUM 3.1 MEQ/L (3.5-5.1); SODIUM LEVEL 140 MEQ/L (136-145)
[2021-12-27 07:41] LABS: PLATELET ESTIMATE DECREASED (NORMAL)
[2021-12-27] MEDS: PANTOPRAZOLE 40MG VIAL IV SCH ×2 (08:51→21:43)
[2021-12-27] MEDS: CARVedilol 12.5 MG TAB PO SCH ×2 (08:51→21:43)
[2021-12-27] MEDS: DOCUSATE SOD LIQ 100MG/10ML UDC PO SCH ×2 (09:00→21:43)
[2021-12-27] MEDS ORDERED: POTASSIUM CHLORIDE 10MEQ SR TABLET PO SCH (09:00)
[2021-12-27] MEDS ORDERED: MAGNESIUM CITRATE 300 ML BTL PO ONE (10:10)
[2021-12-27] MEDS ORDERED: MOM 30ML SUSPENSION UDC PO PRN (10:15)
[2021-12-27] MEDS ORDERED: FLEET ENEMA PR ONE (10:15)
[2021-12-27] MEDS: POTASSIUM CHLORIDE 10% LIQ 20 MEQ/15 ML UDC PO SCH ×2 (10:50→21:43)
[2021-12-27] MEDS ORDERED: KCL 40MEQ IN D5/0.45NS 1000ML 1,000 ML IV SCH (12:00)
[2021-12-27 12:55] VITALS: BP 140/97
[2021-12-27 18:55] LABS: MAGNESIUM LEVEL 2.1 MG/DL (1.8-2.4); POTASSIUM SERUM 3.5 MEQ/L (3.5-5.1)
[2021-12-27 19:47] VITALS: BP 130/98
[2021-12-27 21:43] VITALS: BP 130/98
[2021-12-27] MEDS: MONTELUKAST 10 MG TAB PO SCH (21:43)
[2021-12-28 04:49] VITALS: BP 113/82
[2021-12-28 06:35] LABS: EOS % 0.4 % (0.0-3.0); HEMATOCRIT 34.9 % (42.0-52.0); LYMPH # 0.3 10^3/uL (1.5-5.0); LYMPH % 12.4 % (24.0-44.0); MEAN CORPUSCULAR HEMOGLOBIN 39.5 pg (27.0-33.0); MEAN CORPUSCULAR HGB CONC 34.4 g/dl (32.0-36.5); MONO # 0.3 10^3/uL (0.0-0.8); MONO % 10.7 % (2.0-8.0); NEUTROPHILS # 1.8 10^3/uL (1.5-8.5); NEUTROPHILS % 75.6 % (36.0-66.0); RED BLOOD COUNT 3.04 10^6/uL (4.30-6.10); WHITE BLOOD COUNT 2.3 10^3/uL (4.0-10.0)
[2021-12-28 06:36] LABS: MEAN CORPUSCULAR VOLUME 114.8 fl (80.0-96.0); PLATELET COUNT, AUTOMATED 72 10^3/uL (150-450)
[2021-12-28 07:00] LABS: BLOOD UREA NITROGEN 8 MG/DL (7-18); CALCIUM LEVEL 7.8 MG/DL (8.5-10.1); CARBON DIOXIDE LEVEL 32 MEQ/L (21-32); CHLORIDE LEVEL 104 MEQ/L (98-107); CREATININE FOR GFR 0.51 MG/DL (0.70-1.30); GLOMERULAR FILTRATION RATE > 60.0 (>56); GLUCOSE, FASTING 101 MG/DL (70-100); POTASSIUM SERUM 4.1 MEQ/L (3.5-5.1); SODIUM LEVEL 138 MEQ/L (136-145)
[2021-12-28 07:14] LABS: PLATELET ESTIMATE DECREASED (NORMAL)
[2021-12-28] MEDS: PANTOPRAZOLE 40MG VIAL IV SCH (09:00)
[2021-12-28] MEDS: CARVedilol 12.5 MG TAB PO SCH (09:00)
[2021-12-28] MEDS: POTASSIUM CHLORIDE 10% LIQ 20 MEQ/15 ML UDC PO SCH (09:00)
[2021-12-28] MEDS: DOCUSATE SOD LIQ 100MG/10ML UDC PO SCH (09:00)
[2021-12-28] MEDS ORDERED: E-Z-PAQUE 96% w/w SUSP 176GM BTL As Ordered ONE (09:33)
[2021-12-28] MEDS ORDERED: E-Z-HD 98% w/w 340GM SUSP BTL As Ordered ONE (09:34)
[2021-12-28] MEDS ORDERED: E-Z-GAS II EFFERVESCENT PACKET (SODIUM BICARB./CITRIC ACID/SIMETHICONE) As Ordered ONE (09:34)
[2021-12-28 12:00] VITALS: BP 124/93
[2021-12-28] MEDS ORDERED: DOCU5LIQ PO (15:13)
[2021-12-28] MEDS ORDERED: MOM30SS2 PO (15:13)
== END 2021-12-28 17:20 | disposition home or self-care (01) | DRG 247 ==
LOC: M ED 14:25 → M ED INP 22:10 → ENRESERVTM 23:45 → ENRESERVDT 23:45 → M 4MAIN 12-26 01:11
PROVIDERS: ADMIT Internal Medicine; ATTEND General Practice
DX: K56.41 Fecal impaction (principal); K21.00 Gastro-esophageal reflux disease with esophagitis, without bleeding; R13.10 Dysphagia, unspecified; E46 Unspecified protein-calorie malnutrition; E83.42 Hypomagnesemia; K57.30 Diverticulosis of large intestine without perforation or abscess without bleeding; E55.9 Vitamin D deficiency, unspecified; E53.8 Deficiency of other specified B group vitamins; I10 Essential (primary) hypertension; K76.0 Fatty (change of) liver, not elsewhere classified; K80.20 Calculus of gallbladder without cholecystitis without obstruction; N17.9 Acute kidney failure, unspecified; E86.0 Dehydration; E87.6 Hypokalemia; D61.818 Other pancytopenia; Z68.20 Body mass index [BMI] 20.0-20.9, adult; Z85.810 Personal history of malignant neoplasm of tongue; M48.56XA Collapsed vertebra, not elsewhere classified, lumbar region, initial encounter for fracture; Z79.899 Other long term (current) drug therapy; K62.89 Other specified diseases of anus and rectum; Z87.891 Personal history of nicotine dependence

== ENCOUNTER → 2022-01-22 | Outpatient (CLI) | payer BC, OTHER ==
[~2022-01-22] MED LIST changes: +CARV12.5 PO; +CYAN100049 PO; +DOCU5LIQ PO; +FOLI400T13 PO; +MOM30SS2 PO; +MONT10TA97 PO; +OMEP-173 PO; +PANT40TA29 PO; +VITA100093 PO; +XARE20TA PO
== END ==
LOC: M LABSMTC 10:13
PROVIDERS: ATTEND Anesthesiology
DX: Z01.812 Encounter for preprocedural laboratory examination (principal); Z20.822 Contact with and (suspected) exposure to COVID-19

== ENCOUNTER 2022-01-27 10:00 | Day surgery (SDC) | payer BC, OTHER ==
[~2022-01-27] VITALS: Ht 180.3 cm; Wt 64.9 kg
[~2022-01-27 10:00] MED LIST changes: +NS 1,000 ML IV ONE
[2022-01-27] MEDS ORDERED: propofoL 200 MG/20 ML VIAL As Ordered ONE (10:10)
[2022-01-27] MEDS ORDERED: LIDOCAINE 2% 100MG/5ML SDV (FOR ANES.) As Ordered ONE (10:10)
[2022-01-27] MEDS ORDERED: fentaNYL 100 MCG/2 ML INJECTION As Ordered ONE (10:10)
[2022-01-27 12:16] VITALS: BP 115/81
== END 2022-01-27 12:17 | disposition home or self-care (01) ==
LOC: M OPP 10:00
PROVIDERS: ATTEND Internal Medicine Gastroenterology
DX: K22.2 Esophageal obstruction (principal); K29.70 Gastritis, unspecified, without bleeding; K22.89 Other specified disease of esophagus; I10 Essential (primary) hypertension; D64.9 Anemia, unspecified; N18.9 Chronic kidney disease, unspecified; Z79.899 Other long term (current) drug therapy; Z88.5 Allergy status to narcotic agent; Z92.3 Personal history of irradiation; Z92.21 Personal history of antineoplastic chemotherapy; Z85.818 Personal history of malignant neoplasm of other sites of lip, oral cavity, and pharynx
CPT/HCPCS: 43239; 43249; 88305; J3010

== ENCOUNTER → 2022-03-20 | Outpatient (CLI) | payer BC, OTHER ==
[~2022-03-20] MED LIST changes: -NS 1,000 ML IV ONE
== END ==
LOC: M WUC 14:31
PROVIDERS: ATTEND Physician Assistant
DX: R06.02 Shortness of breath (principal)

== ENCOUNTER → 2022-05-21 | Outpatient (CLI) | payer BC, OTHER ==
[~2022-05-21] MED LIST changes: +CALC1CAP31 PO; +MECL-136 PO; +POTA-136 PO; +TADA10TA PO; +URE-15PO PO
== END ==
LOC: M LABSMTC 11:17
PROVIDERS: ATTEND Anesthesiology
DX: Z01.812 Encounter for preprocedural laboratory examination (principal); Z20.822 Contact with and (suspected) exposure to COVID-19

== ENCOUNTER 2022-05-26 09:38 | Day surgery (SDC) | payer BC, OTHER ==
[~2022-05-26] VITALS: Ht 180.3 cm; Wt 71.4 kg
[~2022-05-26 09:38] MED LIST changes: +NS 1,000 ML IV ONE; +SODI1TAB12 PO; +VITMTA PO
[2022-05-26] MEDS ORDERED: propofoL 200 MG/20 ML VIAL As Ordered ONE ×2 (10:27→12:00)
[2022-05-26] MEDS ORDERED: fentaNYL 100 MCG/2 ML INJECTION As Ordered ONE (11:56)
[2022-05-26] MEDS ORDERED: ONDANSETRON 4MG 2ML VIAL As Ordered ONE (11:56)
[2022-05-26 12:25] VITALS: BP 110/81
== END 2022-05-26 12:31 | disposition home or self-care (01) ==
LOC: M OPP 09:38
PROVIDERS: ATTEND Internal Medicine Gastroenterology
DX: K22.2 Esophageal obstruction (principal); K31.89 Other diseases of stomach and duodenum; R13.10 Dysphagia, unspecified; Z79.01 Long term (current) use of anticoagulants; Z79.899 Other long term (current) drug therapy; Z88.5 Allergy status to narcotic agent; E55.9 Vitamin D deficiency, unspecified; N18.2 Chronic kidney disease, stage 2 (mild); Z85.810 Personal history of malignant neoplasm of tongue; Z92.3 Personal history of irradiation; Z92.21 Personal history of antineoplastic chemotherapy
CPT/HCPCS: 43249; J2405; J3010

== ENCOUNTER 2022-06-21 15:01 | Inpatient (IN) | payer BC, OTHER ==
[2022-06-21] VITALS (20 sets, daily range): BP systolic 81–105; BP diastolic 56–76
[~2022-06-21] VITALS: Ht 180.3 cm; Wt 69.5 kg
[~2022-06-21 15:01] MED LIST changes: -NS 1,000 ML IV ONE
[2022-06-21] MEDS ORDERED: MAGN400C PO (15:12)
[2022-06-21] MEDS ORDERED: TORS10TA3 PO (15:12)
[2022-06-21] MEDS ORDERED: MONT10TA97 (15:12)
[2022-06-21] MEDS ORDERED: URE-15PO PO (15:12)
[2022-06-21 16:07] LABS: VENOUS BASE EXCESS 13.8 (-2.0-2.0); VENOUS HCO3 38.7 MEQ/L (23.0-27.0); VENOUS PARTIAL PRESSURE CO2 49.9 mmHg (38.0-50.0); VENOUS PARTIAL PRESSURE O2 44.9 mmHg (30.0-50.0); VENOUS PH 7.508 UNITS (7.330-7.430); VENOUS TOTAL CO2 40.3 MEQ/L (24.0-28.0)
[2022-06-21 16:08] LABS: VENOUS O2 SATURATION 77.6 % (60.0-80.0); VENOUS STANDARD HCO3 37.2 MEQ/L
[2022-06-21 16:20] LABS: LIPASE 19 U/L (12-53)
[2022-06-21 16:22] LABS: BILIRUBIN,DIRECT 1.3 MG/DL (<0.4)
[2022-06-21 16:27] LABS: RSV AMPLIFICATION NEGATIVE (NEGATIVE)
[2022-06-21 16:39] LABS: ALBUMIN 2.1 G/DL (3.2-5.2); ALKALINE PHOSPHATASE 144 U/L (46-116); ALT/SGPT 35 U/L (7.0-40); AST/SGOT 142 U/L (<34); BILIRUBIN,TOTAL 2.7 MG/DL (0.3-1.2); MAGNESIUM LEVEL 0.7 MG/DL (1.8-2.4); TOTAL PROTEIN 5.4 G/DL (5.7-8.2)
[2022-06-21] MEDS ORDERED: CALCIUM CHLORIDE 10% 1 GM in D5W 100 ML IV ONE (17:00)
[2022-06-21] MEDS ORDERED: MAG SULF 1GM/100ML (MAG RUN) 1 GM in IV 1 EA IV ONE ×3 (17:00→19:00)
[2022-06-21 17:01] LABS: FREE T4 1.53 NG/DL (0.89-1.76); THYROID STIMULATING HORMONE 4.006 uIU/ML (0.55-4.78)
[2022-06-21 17:02] LABS: BASO % 0.5 % (0.0-1.0); EOS % 0.5 % (0.0-3.0); HEMATOCRIT 28.5 % (42.0-52.0); HEMOGLOBIN 10.7 g/dl (13.5-17.5); LYMPH # 0.3 10^3/uL (1.5-5.0); LYMPH % 6.4 % (24.0-44.0); MEAN CORPUSCULAR HEMOGLOBIN 40.2 pg (27.0-33.0); MEAN CORPUSCULAR HGB CONC 37.5 g/dl (32.0-36.5); MEAN CORPUSCULAR VOLUME 107.1 fl (80.0-96.0); MONO # 0.7 10^3/uL (0.0-0.8); MONO % 16.9 % (2.0-8.0); NEUTROPHILS # 3.3 10^3/uL (1.5-8.5); NEUTROPHILS % 75.2 % (36.0-66.0); RED BLOOD COUNT 2.66 10^6/uL (4.30-6.10); WHITE BLOOD COUNT 4.4 10^3/uL (4.0-10.0)
[2022-06-21] MEDS ORDERED: CALCITRIOL 0.25 MCG CAP (S0169) PO STA (17:05)
[2022-06-21 17:08] LABS: PLATELET COUNT, AUTOMATED 77 10^3/uL (150-450)
[2022-06-21] MEDS ORDERED: KCL 10MEQ/100ML SWI (KRUN) 10 MEQ in IV 1 EA IV ONE (18:00)
[2022-06-21 18:09] LABS: ABG BASE EXCESS 16.3 (-2.0-2.0); ABG HCO3 39.4 MEQ/L (22.0-26.0); ABG O2 SATURATION 95.9 % (95.0-99.0); ABG PARTIAL PRESSURE CO2 41.2 mmHg (35.0-45.0); ABG PARTIAL PRESSURE O2 77.9 mmHg (75.0-100.0); ABG STANDARD HCO3 40.1 MEQ/L (22.0-26.0); ABG TOTAL CO2 40.6 MEQ/L (22.0-29.0); ABG pH (ARTERIAL) 7.598 UNITS (7.350-7.450)
[2022-06-21] MEDS: KCL 20MEQ IN 100ML SWI (KRUN) 20 MEQ in IV 1 EA IV SCH ×4 (19:00→21:00)
[2022-06-21] MEDS ORDERED: POTASSIUM CHLORIDE 10% LIQ 20MEQ/15ML UDC PO ONE ×2 (19:00→21:00)
[2022-06-21 19:26] LABS: BLOOD UREA NITROGEN 5 MG/DL (9-23); CARBON DIOXIDE LEVEL 37 MMOL/L (20-31); CHLORIDE LEVEL 65 MMOL/L (98-107); CREATININE FOR GFR 0.46 MG/DL (0.70-1.30); GLOMERULAR FILTRATION RATE > 60.0 (>56); GLUCOSE, FASTING 101 MG/DL (60-100); POTASSIUM SERUM 2.4 MMOL/L (3.5-5.1); SODIUM LEVEL 114 MMOL/L (136-145)
[2022-06-21] MEDS ORDERED: NS 1,000 ML IV ONE (19:30)
[2022-06-21 19:35] LABS: OSMOLALITY URINE 68 MOSM/KG (50-1400)
[2022-06-21 19:46] LABS: ALBUMIN 1.7 G/DL (3.2-5.2); BLOOD UREA NITROGEN < 5 MG/DL (9-23); CALCIUM LEVEL 4.9 MG/DL (8.5-10.1); CARBON DIOXIDE LEVEL > 40.0 MMOL/L (20-31); CHLORIDE LEVEL 68 MMOL/L (98-107); GLOMERULAR FILTRATION RATE > 60.0 (>56); GLUCOSE, FASTING 152 MG/DL (60-100); PHOSPHORUS LEVEL 4.7 MG/DL (2.5-4.9); POTASSIUM SERUM 2.1 MMOL/L (3.5-5.1); SODIUM LEVEL 115 MMOL/L (136-145)
[2022-06-21 19:56] LABS: CREATININE,RANDOM URINE 30.5 MG/DL
[2022-06-21 19:59] LABS: SODIUM,RANDOM URINE < 10 MMOL/L
[2022-06-21] MEDS: MAG SULF 1GM/100ML (MAG RUN) 1 GM in IV 1 EA IV SCH ×3 (20:20→22:28)
[2022-06-21] MEDS ORDERED: HOME MED LIST COMPLETE! XX SCH (20:35)
[2022-06-22] VITALS (40 sets, daily range): BP systolic 83–120; BP diastolic 52–86
[2022-06-22 00:46] LABS: ALBUMIN 1.6 G/DL (3.2-5.2); BLOOD UREA NITROGEN < 5 MG/DL (9-23); CALCIUM LEVEL 4.6 MG/DL (8.5-10.1); CARBON DIOXIDE LEVEL 38 MMOL/L (20-31); CHLORIDE LEVEL 75 MMOL/L (98-107); CREATININE FOR GFR 0.41 MG/DL (0.70-1.30); GLOMERULAR FILTRATION RATE > 60.0 (>56); GLUCOSE, FASTING 111 MG/DL (60-100); MAGNESIUM LEVEL 1.7 MG/DL (1.8-2.4); POTASSIUM SERUM 2.9 MMOL/L (3.5-5.1); SODIUM LEVEL 119 MMOL/L (136-145)
[2022-06-22] MEDS ORDERED: POTASSIUM CHLORIDE 10% LIQ 20MEQ/15ML UDC PO ONE (01:00)
[2022-06-22] MEDS ORDERED: MAG SULF 1GM/100ML (MAG RUN) 1 GM in IV 1 EA IV ONE ×3 (02:00→20:00)
[2022-06-22] MEDS: KCL 20MEQ IN 100ML SWI (KRUN) 20 MEQ in IV 1 EA IV SCH ×4 (02:16→03:20)
[2022-06-22 05:59] LABS: HEMATOCRIT 23.7 % (42.0-52.0); HEMOGLOBIN 8.8 g/dl (13.5-17.5); MEAN CORPUSCULAR HGB CONC 37.1 g/dl (32.0-36.5); MEAN CORPUSCULAR VOLUME 107.7 fl (80.0-96.0); WHITE BLOOD COUNT 2.8 10^3/uL (4.0-10.0)
[2022-06-22 06:02] LABS: ABG BASE EXCESS 9.8 (-2.0-2.0); ABG HCO3 32.6 MEQ/L (22.0-26.0); ABG O2 SATURATION 98.1 % (95.0-99.0); ABG PARTIAL PRESSURE CO2 36.7 mmHg (35.0-45.0); ABG PARTIAL PRESSURE O2 119.9 mmHg (75.0-100.0); ABG STANDARD HCO3 33.5 MEQ/L (22.0-26.0); ABG TOTAL CO2 33.7 MEQ/L (22.0-29.0); ABG pH (ARTERIAL) 7.566 UNITS (7.350-7.450)
[2022-06-22 06:07] LABS: BILIRUBIN,DIRECT 1.1 MG/DL (<0.4)
[2022-06-22 06:15] LABS: ALBUMIN 1.5 G/DL (3.2-5.2); BILIRUBIN,TOTAL 1.9 MG/DL (0.3-1.2); PLATELET COUNT, AUTOMATED 77 10^3/uL (150-450); TOTAL PROTEIN 3.9 G/DL (5.7-8.2)
[2022-06-22 06:18] LABS: ALBUMIN 1.5 G/DL (3.2-5.2); BLOOD UREA NITROGEN < 5 MG/DL (9-23); CALCIUM LEVEL 4.5 MG/DL (8.5-10.1); CARBON DIOXIDE LEVEL 38 MMOL/L (20-31); CHLORIDE LEVEL 76 MMOL/L (98-107); CREATININE FOR GFR 0.36 MG/DL (0.70-1.30); GLOMERULAR FILTRATION RATE > 60.0 (>56); GLUCOSE, FASTING 97 MG/DL (60-100); PHOSPHORUS LEVEL 3.5 MG/DL (2.5-4.9); POTASSIUM SERUM 3.5 MMOL/L (3.5-5.1); SODIUM LEVEL 118 MMOL/L (136-145)
[2022-06-22] MEDS: OYSTER SHELL CALCIUM 500 MG TAB PO SCH ×3 (08:30→20:37)
[2022-06-22] MEDS ORDERED: ENOXAPARIN 40MG/0.4ML SYRINGE (J1650 PER 10MG) SC SCH (09:00)
[2022-06-22] MEDS: CALCITRIOL 0.25 MCG CAP (S0169) PO SCH (10:25)
[2022-06-22] MEDS: POTASSIUM CHLORIDE 10% LIQ 20MEQ/15ML UDC PO SCH ×3 (10:25→22:12)
[2022-06-22] MEDS: NS 1,000 ML IV SCH ×2 (10:26→22:10)
[2022-06-22] MEDS: MAGNESIUM OXIDE 400MG TAB (MAG-OX) PO SCH ×2 (10:26→20:37)
[2022-06-22] MEDS ORDERED: CALCIUM GLUCONATE 1,000 MG in D5W MINI-BAG PLUS 100 ML IV ONE (11:00)
[2022-06-22 14:40] LABS: TOTAL 25(OH) VITAMIN D 66.7 NG/ML (20.0-100.0)
[2022-06-22] MEDS: ENOXAPARIN 80MG/0.8ML SYRINGE (J1650 PER 10MG) SC SCH (14:58)
[2022-06-22 15:11] LABS: BLOOD UREA NITROGEN < 5 MG/DL (9-23); CREATININE FOR GFR 0.34 MG/DL (0.70-1.30); GLOMERULAR FILTRATION RATE > 60.0 (>56); GLUCOSE, FASTING 117 MG/DL (60-100); SODIUM LEVEL 117 MMOL/L (136-145)
[2022-06-22 15:12] LABS: ALBUMIN 2.4 G/DL (3.2-5.2); CALCIUM LEVEL 5.8 MG/DL (8.5-10.1); CARBON DIOXIDE LEVEL 35 MMOL/L (20-31); CHLORIDE LEVEL 76 MMOL/L (98-107); PHOSPHORUS LEVEL 2.8 MG/DL (2.5-4.9); POTASSIUM SERUM 3.4 MMOL/L (3.5-5.1)
[2022-06-22 15:40] LABS: IRON (FE) 101 UG/DL (65-175); PERCENT SATURATION 63.5 % (19.7-50.0); TOTAL IRON BINDING CAPACITY 159 UG/DL (250-425)
[2022-06-22 15:41] LABS: FERRITIN 995.8 NG/ML (10.5-307.3)
[2022-06-22 15:42] LABS: FOLATE 4.6 NG/ML (>5.4)
[2022-06-22 15:44] LABS: VITAMIN B12 LEVEL > 2000 PG/ML (211-911)
[2022-06-22] MEDS ORDERED: RIVAROXABAN 20MG TAB (XARELTO) PO SCH (18:00)
[2022-06-22 18:54] LABS: MAGNESIUM LEVEL 1.4 MG/DL (1.8-2.4)
[2022-06-22 18:57] LABS: BLOOD UREA NITROGEN < 5 MG/DL (9-23); CALCIUM LEVEL 5.8 MG/DL (8.5-10.1); CARBON DIOXIDE LEVEL 35 MMOL/L (20-31); CHLORIDE LEVEL 78 MMOL/L (98-107); CREATININE FOR GFR 0.31 MG/DL (0.70-1.30); GLOMERULAR FILTRATION RATE > 60.0 (>56); GLUCOSE, FASTING 113 MG/DL (60-100); PHOSPHORUS LEVEL 2.9 MG/DL (2.5-4.9); POTASSIUM SERUM 3.3 MMOL/L (3.5-5.1); SODIUM LEVEL 118 MMOL/L (136-145)
[2022-06-22] MEDS: POTASSIUM CHLORIDE 10% LIQ 20MEQ/15ML UDC PO ONE ×2 (20:36→22:12)
[2022-06-22] MEDS ORDERED: PROMETHAZINE 25MG/ML 1ML VIAL IV ONE (21:05)
[2022-06-22] MEDS: CALCIUM GLUCONATE 1,000 MG in D5W MINI-BAG PLUS 100 ML IV SCH ×2 (21:06→22:08)
[2022-06-23] VITALS (37 sets, daily range): BP systolic 88–121; BP diastolic 58–86
[2022-06-23] MEDS: ENOXAPARIN 80MG/0.8ML SYRINGE (J1650 PER 10MG) SC SCH ×2 (00:37→13:35)
[2022-06-23 01:33] LABS: CALCIUM LEVEL 6.2 MG/DL (8.5-10.1); MAGNESIUM LEVEL 1.5 MG/DL (1.8-2.4); POTASSIUM SERUM 3.3 MMOL/L (3.5-5.1)
[2022-06-23] MEDS ORDERED: MAG SULF 1GM/100ML (MAG RUN) 1 GM in IV 1 EA IV ONE ×3 (02:00→19:00)
[2022-06-23] MEDS ORDERED: KCL 20MEQ IN 100ML SWI (KRUN) 20 MEQ in IV 1 EA IV ONE ×2 (03:00)
[2022-06-23 04:49] LABS: HEMOGLOBIN 7.6 g/dl (13.5-17.5); MEAN CORPUSCULAR HEMOGLOBIN 41.5 pg (27.0-33.0); MEAN CORPUSCULAR HGB CONC 37.4 g/dl (32.0-36.5); MEAN CORPUSCULAR VOLUME 110.9 fl (80.0-96.0); RED BLOOD COUNT 1.83 10^6/uL (4.30-6.10); WHITE BLOOD COUNT 2.7 10^3/uL (4.0-10.0)
[2022-06-23 04:59] LABS: HEMATOCRIT 20.3 % (42.0-52.0); PLATELET COUNT, AUTOMATED 76 10^3/uL (150-450)
[2022-06-23 05:25] LABS: BLOOD UREA NITROGEN < 5 MG/DL (9-23); CALCIUM LEVEL 6.2 MG/DL (8.5-10.1); CARBON DIOXIDE LEVEL 34 MMOL/L (20-31); CHLORIDE LEVEL 80 MMOL/L (98-107); CREATININE FOR GFR 0.28 MG/DL (0.70-1.30); GLOMERULAR FILTRATION RATE > 60.0 (>56); GLUCOSE, FASTING 109 MG/DL (60-100); MAGNESIUM LEVEL 1.6 MG/DL (1.8-2.4); PHOSPHORUS LEVEL 2.9 MG/DL (2.5-4.9); POTASSIUM SERUM 3.6 MMOL/L (3.5-5.1); SODIUM LEVEL 118 MMOL/L (136-145)
[2022-06-23 05:28] LABS: ABG BASE EXCESS 11.2 (-2.0-2.0); ABG HCO3 33.9 MEQ/L (22.0-26.0); ABG O2 SATURATION 98.9 % (95.0-99.0); ABG PARTIAL PRESSURE CO2 36.6 mmHg (35.0-45.0); ABG PARTIAL PRESSURE O2 137.6 mmHg (75.0-100.0); ABG STANDARD HCO3 34.9 MEQ/L (22.0-26.0); ABG pH (ARTERIAL) 7.584 UNITS (7.350-7.450)
[2022-06-23] MEDS ORDERED: CALCITRIOL 0.25 MCG CAP (S0169) PO SCH (09:00)
[2022-06-23] MEDS: OYSTER SHELL CALCIUM 500 MG TAB PO SCH ×3 (10:41→20:17)
[2022-06-23] MEDS: FOLIC ACID 1MG TAB PO SCH (10:42)
[2022-06-23] MEDS: CALCITRIOL 0.25 MCG CAP (S0169) PO SCH (10:42)
[2022-06-23] MEDS: NS IV SCH ×4 (11:16→21:24)
[2022-06-23] MEDS: KCL IV SCH ×4 (11:16→21:24)
[2022-06-23] MEDS: MAGNESIUM SULFATE IV SCH ×4 (11:16→21:24)
[2022-06-23 14:07] LABS: CHLORIDE,RANDOM URINE 35 MMOL/L; SODIUM,RANDOM URINE 42 MMOL/L
[2022-06-23 14:14] LABS: UREA NITROGEN RANDOM URINE 165 MG/DL
[2022-06-23 17:39] LABS: BLOOD UREA NITROGEN < 5 MG/DL (9-23); CALCIUM LEVEL 6.7 MG/DL (8.5-10.1); CARBON DIOXIDE LEVEL 31 MMOL/L (20-31); CHLORIDE LEVEL 85 MMOL/L (98-107); CREATININE FOR GFR 0.26 MG/DL (0.70-1.30); GLOMERULAR FILTRATION RATE > 60.0 (>56); GLUCOSE, FASTING 118 MG/DL (60-100); MAGNESIUM LEVEL 1.7 MG/DL (1.8-2.4); PHOSPHORUS LEVEL 1.9 MG/DL (2.5-4.9); POTASSIUM SERUM 3.4 MMOL/L (3.5-5.1); SODIUM LEVEL 120 MMOL/L (136-145)
[2022-06-23 19:35] LABS: APPEARANCE, URINE MANUAL CLOUDY (CLEAR); COLOR, URINE MANUAL DK YELLOW (YELLOW)
[2022-06-23 19:37] LABS: BILIRUBIN, URINE MANUAL NEGATIVE (NEGATIVE); BLOOD URINE MANUAL POSITIVE (NEGATIVE); GLUCOSE, URINE (UA) MANUAL NEGATIVE (NEGATIVE); KETONE, URINE MANUAL NEGATIVE (NEGATIVE); LEUKOCYTE ESTERASE, URINE MAN POSITIVE (NEGATIVE); NITRITE, URINE MANUAL POSITIVE (NEGATIVE); PH,URINE MAN 6.5 UNITS (5.0 - 7.0); PROTEIN, URINE MANUAL 1+ mg/dL (NEGATIVE); UROBILINOGEN, URINE MANUAL NORMAL (NORMAL)
[2022-06-23 19:48] LABS: RBC, URINE 40-50 /hpf (0-3); RENAL EPITHELIAL CELLS, URINE SMALL AMOUNT /hpf; SQUAMOUS EPITHELIAL CELL URINE SMALL AMOUNT /hpf (SMALL AMT)
[2022-06-23 19:50] LABS: AMORPHOUS SEDIMENT, URINE SMALL AMOUNT (NEGATIVE); BACTERIA, URINE LARGE AMOUNT; HYALINE CAST, URINE NONE SEEN /lpf (0-1); MUCUS, URINE MOD AMOUNT (NEGATIVE)
[2022-06-23] MEDS ORDERED: POTASSIUM PHOSPHATE INJ 15 MMOL in D5W 250 ML IV ONE (20:00)
[2022-06-23] MEDS: POTASSIUM CHLORIDE 10MEQ SR TABLET PO SCH (21:00)
[2022-06-23 22:25] LABS: POTASSIUM SERUM 3.5 MMOL/L (3.5-5.1)
[2022-06-23 22:32] LABS: MAGNESIUM LEVEL 1.8 MG/DL (1.8-2.4)
[2022-06-24] VITALS (25 sets, daily range): BP systolic 95–139; BP diastolic 62–95
[2022-06-24] MEDS: ENOXAPARIN 80MG/0.8ML SYRINGE (J1650 PER 10MG) SC SCH ×2 (01:21→13:55)
[2022-06-24 05:23] LABS: MEAN CORPUSCULAR HEMOGLOBIN 41.5 pg (27.0-33.0); MEAN CORPUSCULAR HGB CONC 36.4 g/dl (32.0-36.5); RED BLOOD COUNT 1.42 10^6/uL (4.30-6.10); WHITE BLOOD COUNT 2.8 10^3/uL (4.0-10.0)
[2022-06-24 05:30] LABS: HEMATOCRIT 16.2 % (42.0-52.0); HEMOGLOBIN 5.9 g/dl (13.5-17.5); MEAN CORPUSCULAR VOLUME 114.1 fl (80.0-96.0)
[2022-06-24 05:31] LABS: PLATELET COUNT, AUTOMATED 68 10^3/uL (150-450)
[2022-06-24 05:38] LABS: MAGNESIUM LEVEL 1.9 MG/DL (1.8-2.4)
[2022-06-24 05:42] LABS: BLOOD UREA NITROGEN < 5 MG/DL (9-23); CALCIUM LEVEL 6.6 MG/DL (8.5-10.1); CARBON DIOXIDE LEVEL 32 MMOL/L (20-31); CHLORIDE LEVEL 91 MMOL/L (98-107); CREATININE FOR GFR 0.27 MG/DL (0.70-1.30); GLOMERULAR FILTRATION RATE > 60.0 (>56); GLUCOSE, FASTING 82 MG/DL (60-100); PHOSPHORUS LEVEL 2.3 MG/DL (2.5-4.9); POTASSIUM SERUM 3.5 MMOL/L (3.5-5.1); SODIUM LEVEL 127 MMOL/L (136-145)
[2022-06-24] MEDS: MAGNESIUM SULFATE IV SCH ×2 (07:29)
[2022-06-24] MEDS: NS IV SCH ×2 (07:29)
[2022-06-24] MEDS: KCL IV SCH ×2 (07:29)
[2022-06-24] MEDS: CALCITRIOL 0.25 MCG CAP (S0169) PO SCH (08:15)
[2022-06-24] MEDS: FOLIC ACID 1MG TAB PO SCH (08:15)
[2022-06-24] MEDS: POTASSIUM CHLORIDE 10MEQ SR TABLET PO SCH ×2 (08:15→20:08)
[2022-06-24] MEDS: OYSTER SHELL CALCIUM 500 MG TAB PO SCH ×3 (08:15→20:08)
[2022-06-24] MEDS: MAG SULF 1GM/100ML (MAG RUN) 1 GM in IV 1 EA IV SCH ×2 (08:16→09:39)
[2022-06-24] MEDS ORDERED: POTASSIUM PHOSPHATE INJ 15 MMOL in D5W 250 ML IV ONE (10:00)
[2022-06-24] MEDS ORDERED: FUROSEMIDE 40MG/4ML VIAL IV ONE (10:00)
[2022-06-24 12:18] LABS: ALBUMIN 3.6 G/DL (3.2-5.2); BLOOD UREA NITROGEN < 5 MG/DL (9-23); CALCIUM LEVEL 7.1 MG/DL (8.5-10.1); CARBON DIOXIDE LEVEL 29 MMOL/L (20-31); CHLORIDE LEVEL 88 MMOL/L (98-107); CREATININE FOR GFR 0.27 MG/DL (0.70-1.30); GLOMERULAR FILTRATION RATE > 60.0 (>56); GLUCOSE, FASTING 169 MG/DL (60-100); PHOSPHORUS LEVEL 2.8 MG/DL (2.5-4.9); POTASSIUM SERUM 3.7 MMOL/L (3.5-5.1); SODIUM LEVEL 126 MMOL/L (136-145)
[2022-06-24 18:51] LABS: MAGNESIUM LEVEL 1.7 MG/DL (1.8-2.4)
[2022-06-24 18:56] LABS: BLOOD UREA NITROGEN < 5 MG/DL (9-23); CALCIUM LEVEL 7.3 MG/DL (8.5-10.1); CARBON DIOXIDE LEVEL 31 MMOL/L (20-31); CHLORIDE LEVEL 88 MMOL/L (98-107); CREATININE FOR GFR 0.28 MG/DL (0.70-1.30); GLOMERULAR FILTRATION RATE > 60.0 (>56); GLUCOSE, FASTING 115 MG/DL (60-100); PHOSPHORUS LEVEL 2.3 MG/DL (2.5-4.9); POTASSIUM SERUM 3.8 MMOL/L (3.5-5.1); SODIUM LEVEL 125 MMOL/L (136-145)
[2022-06-24] MEDS ORDERED: MAG SULF 1GM/100ML (MAG RUN) 1 GM in IV 1 EA IV ONE (21:00)
[2022-06-24] MEDS ORDERED: KCL 10MEQ/100ML SWI (KRUN) 10 MEQ in IV 1 EA IV ONE (22:00)
[2022-06-25] VITALS (9 sets, daily range): BP systolic 109–129; BP diastolic 77–91
[2022-06-25 00:42] LABS: MAGNESIUM LEVEL 1.7 MG/DL (1.8-2.4)
[2022-06-25 00:46] LABS: BLOOD UREA NITROGEN < 5 MG/DL (9-23); CALCIUM LEVEL 7.3 MG/DL (8.5-10.1); CARBON DIOXIDE LEVEL 32 MMOL/L (20-31); CHLORIDE LEVEL 90 MMOL/L (98-107); CREATININE FOR GFR 0.28 MG/DL (0.70-1.30); GLOMERULAR FILTRATION RATE > 60.0 (>56); GLUCOSE, FASTING 103 MG/DL (60-100); POTASSIUM SERUM 3.9 MMOL/L (3.5-5.1); SODIUM LEVEL 127 MMOL/L (136-145)
[2022-06-25] MEDS: ENOXAPARIN 80MG/0.8ML SYRINGE (J1650 PER 10MG) SC SCH (01:01)
[2022-06-25 06:05] LABS: HEMATOCRIT 25.7 % (42.0-52.0); HEMOGLOBIN 9.3 g/dl (13.5-17.5); MEAN CORPUSCULAR HEMOGLOBIN 37.1 pg (27.0-33.0); MEAN CORPUSCULAR HGB CONC 36.2 g/dl (32.0-36.5); MEAN CORPUSCULAR VOLUME 102.4 fl (80.0-96.0); RED BLOOD COUNT 2.51 10^6/uL (4.30-6.10); WHITE BLOOD COUNT 3.5 10^3/uL (4.0-10.0)
[2022-06-25 06:06] LABS: PLATELET COUNT, AUTOMATED 70 10^3/uL (150-450)
[2022-06-25 06:11] LABS: BILIRUBIN,DIRECT 1.2 MG/DL (<0.4)
[2022-06-25 06:15] LABS: ALBUMIN 2.6 G/DL (3.2-5.2); BILIRUBIN,TOTAL 2.3 MG/DL (0.3-1.2); MAGNESIUM LEVEL 1.6 MG/DL (1.8-2.4); TOTAL PROTEIN 4.1 G/DL (5.7-8.2)
[2022-06-25 06:18] LABS: BLOOD UREA NITROGEN < 5 MG/DL (9-23); CALCIUM LEVEL 7.3 MG/DL (8.5-10.1); CARBON DIOXIDE LEVEL 33 MMOL/L (20-31); CHLORIDE LEVEL 91 MMOL/L (98-107); CREATININE FOR GFR 0.29 MG/DL (0.70-1.30); GLOMERULAR FILTRATION RATE > 60.0 (>56); GLUCOSE, FASTING 68 MG/DL (60-100); PHOSPHORUS LEVEL 2.6 MG/DL (2.5-4.9); POTASSIUM SERUM 3.8 MMOL/L (3.5-5.1); SODIUM LEVEL 128 MMOL/L (136-145)
[2022-06-25] MEDS: FOLIC ACID 1MG TAB PO SCH (08:20)
[2022-06-25] MEDS: KCL 10MEQ/100ML SWI (KRUN) 10 MEQ in IV 1 EA IV SCH ×2 (08:20→08:28)
[2022-06-25] MEDS ORDERED: guaiFENesin SYRUP 200MG 10ML UDC PO PRN (08:20)
[2022-06-25] MEDS: CALCITRIOL 0.25 MCG CAP (S0169) PO SCH (08:20)
[2022-06-25] MEDS: OYSTER SHELL CALCIUM 500 MG TAB PO SCH ×3 (08:21→23:02)
[2022-06-25] MEDS ORDERED: FUROSEMIDE 20MG/2ML VIAL IV ONE (08:30)
[2022-06-25] MEDS ORDERED: MAGNESIUM OXIDE 400MG TAB (MAG-OX) PO SCH (09:00)
[2022-06-25] MEDS: MAG SULF 1GM/100ML (MAG RUN) 1 GM in IV 1 EA IV SCH ×2 (09:59→10:30)
[2022-06-25] MEDS ORDERED: TOLVAPTAN 7.5 MG HALF-TAB PO ONE (11:00)
[2022-06-25] MEDS ORDERED: SODIUM PHOSPHATE INJ 20 MMOL in D5W 250 ML IV ONE (11:00)
[2022-06-25 16:52] LABS: ALBUMIN 2.7 G/DL (3.2-5.2); BLOOD UREA NITROGEN 6 MG/DL (9-23); CALCIUM LEVEL 7.3 MG/DL (8.5-10.1); CARBON DIOXIDE LEVEL 32 MMOL/L (20-31); CHLORIDE LEVEL 88 MMOL/L (98-107); CREATININE FOR GFR 0.26 MG/DL (0.70-1.30); GLOMERULAR FILTRATION RATE > 60.0 (>56); GLUCOSE, FASTING 109 MG/DL (60-100); PHOSPHORUS LEVEL 4.1 MG/DL (2.5-4.9); POTASSIUM SERUM 3.7 MMOL/L (3.5-5.1); SODIUM LEVEL 126 MMOL/L (136-145)
[2022-06-25] MEDS ORDERED: PROCHLORPERAZINE 10MG 2ML VIAL IV PRN (20:40)
[2022-06-25] MEDS ORDERED: PROMETHAZINE 25MG/ML 1ML VIAL IV ONE ×2 (21:00)
[2022-06-25] MEDS ORDERED: ACETAMINOPHEN 1000MG 100ML IV BAG IV ONE (22:00)
[2022-06-25] MEDS: DICLOFENAC EPOLAMINE 1.3% PATCH TOP SCH (23:02)
[2022-06-26] VITALS (11 sets, daily range): BP systolic 98–135; BP diastolic 68–97
[2022-06-26] MEDS ORDERED: SODIUM CHLORIDE 0.9% INJ 10 ML SYR IV PRN (01:40)
[2022-06-26] MEDS: SODIUM CHLORIDE 0.9% INJ 10 ML SYR IV SCH ×3 (04:34→21:11)
[2022-06-26 05:10] LABS: HEMATOCRIT 28.4 % (42.0-52.0); HEMOGLOBIN 10.1 g/dl (13.5-17.5); MEAN CORPUSCULAR HEMOGLOBIN 36.9 pg (27.0-33.0); MEAN CORPUSCULAR HGB CONC 35.6 g/dl (32.0-36.5); MEAN CORPUSCULAR VOLUME 103.6 fl (80.0-96.0); RED BLOOD COUNT 2.74 10^6/uL (4.30-6.10); WHITE BLOOD COUNT 4.5 10^3/uL (4.0-10.0)
[2022-06-26 05:17] LABS: PLATELET COUNT, AUTOMATED 79 10^3/uL (150-450)
[2022-06-26 05:22] LABS: MAGNESIUM LEVEL 1.2 MG/DL (1.8-2.4)
[2022-06-26 05:24] LABS: BLOOD UREA NITROGEN 7 MG/DL (9-23); CALCIUM LEVEL 7.7 MG/DL (8.5-10.1); CARBON DIOXIDE LEVEL 32 MMOL/L (20-31); CHLORIDE LEVEL 88 MMOL/L (98-107); CREATININE FOR GFR 0.25 MG/DL (0.70-1.30); GLOMERULAR FILTRATION RATE > 60.0 (>56); GLUCOSE, FASTING 115 MG/DL (60-100); PHOSPHORUS LEVEL 4.3 MG/DL (2.5-4.9); POTASSIUM SERUM 3.7 MMOL/L (3.5-5.1); SODIUM LEVEL 126 MMOL/L (136-145)
[2022-06-26] MEDS: MAG SULF 1GM/100ML (MAG RUN) 1 GM in IV 1 EA IV SCH ×2 (07:32→08:47)
[2022-06-26 07:53] LABS: ALBUMIN 2.5 G/DL (3.2-5.2); ALKALINE PHOSPHATASE 79 U/L (46-116); ALT/SGPT 15 U/L (7.0-40); AST/SGOT 38 U/L (<34); BILIRUBIN,DIRECT 0.9 MG/DL (<0.4); BILIRUBIN,TOTAL 1.5 MG/DL (0.3-1.2); TOTAL PROTEIN 4.3 G/DL (5.7-8.2)
[2022-06-26] MEDS: OYSTER SHELL CALCIUM 500 MG TAB PO SCH ×3 (08:47→21:25)
[2022-06-26] MEDS: DICLOFENAC EPOLAMINE 1.3% PATCH TOP SCH ×2 (08:47→21:14)
[2022-06-26] MEDS: CALCITRIOL 0.25 MCG CAP (S0169) PO SCH (08:47)
[2022-06-26] MEDS: FOLIC ACID 1MG TAB PO SCH (08:48)
[2022-06-26] MEDS ORDERED: KCL 20MEQ in NS 1000ML 1,000 ML IV SCH (10:50)
[2022-06-26] MEDS ORDERED: propofoL 200 MG/20 ML VIAL As Ordered ONE ×2 (13:10→14:46)
[2022-06-26] MEDS ORDERED: fentaNYL 100 MCG/2 ML INJECTION As Ordered ONE (13:10)
[2022-06-26] MEDS ORDERED: LIDOCAINE 2% 100MG/5ML SDV (FOR ANES.) As Ordered ONE (13:10)
[2022-06-26] MEDS ORDERED: UNASYN 3GM VIAL As Ordered ONE (13:56)
[2022-06-26] MEDS ORDERED: fentaNYL 100 MCG/2 ML INJECTION IV PRN (14:25)
[2022-06-26] MEDS ORDERED: ONDANSETRON 4MG 2ML VIAL IV PRN (14:25)
[2022-06-26] MEDS ORDERED: CETACAINE SPRAY 5GM As Ordered ONE (14:44)
[2022-06-26] MEDS ORDERED: CETACAINE SPRAY 5GM ONE (14:44)
[2022-06-26] MEDS ORDERED: ROCURONIUM BROMIDE 50MG/5ML VIAL As Ordered ONE (14:46)
[2022-06-26] MEDS ORDERED: IPRATROPIUM 0.5MG/ALBUTEROL 2.5MG INH SOL UD 3ML (DUONEB) NEB ONE (15:20)
[2022-06-26] MEDS ORDERED: FUROSEMIDE 20MG/2ML VIAL IV ONE (16:00)
[2022-06-26] MEDS: PIPERACILLIN/TAZOBACTAM SOD 3.375 GM in D5W MINI-BAG PLUS 50 ML IV SCH ×2 (16:07→21:26)
[2022-06-26] MEDS ORDERED: ISOVUE-370 76% 100ML VIAL As Ordered ONE (16:22)
[2022-06-26] MEDS: ENOXAPARIN 80MG/0.8ML SYRINGE (J1650 PER 10MG) SC SCH (18:55)
[2022-06-26] MEDS ORDERED: ENOXAPARIN 80MG/0.8ML SYRINGE (J1650 PER 10MG) SC SCH (21:00)
[2022-06-27] VITALS (8 sets, daily range): BP systolic 96–117; BP diastolic 67–77; O2SAT 98
[2022-06-27] MEDS: IPRATROPIUM 0.5MG/ALBUTEROL 2.5MG INH SOL UD 3ML (DUONEB) NEB SCH ×4 (00:21→23:43)
[2022-06-27] MEDS: PIPERACILLIN/TAZOBACTAM SOD 3.375 GM in D5W MINI-BAG PLUS 50 ML IV SCH ×2 (03:36→10:37)
[2022-06-27] MEDS: SODIUM CHLORIDE 0.9% INJ 10 ML SYR IV SCH ×3 (05:09→21:40)
[2022-06-27] MEDS: ENOXAPARIN 80MG/0.8ML SYRINGE (J1650 PER 10MG) SC SCH ×2 (05:19→17:58)
[2022-06-27 05:24] LABS: BASO % 0.3 % (0.0-1.0); EOS % 0.1 % (0.0-3.0); HEMATOCRIT 28.7 % (42.0-52.0); LYMPH # 0.4 10^3/uL (1.5-5.0); LYMPH % 4.9 % (24.0-44.0); MEAN CORPUSCULAR HEMOGLOBIN 36.8 pg (27.0-33.0); MEAN CORPUSCULAR HGB CONC 34.8 g/dl (32.0-36.5); MEAN CORPUSCULAR VOLUME 105.5 fl (80.0-96.0); MONO # 0.7 10^3/uL (0.0-0.8); MONO % 9.6 % (2.0-8.0); NEUTROPHILS # 6.2 10^3/uL (1.5-8.5); NEUTROPHILS % 84.6 % (36.0-66.0); RED BLOOD COUNT 2.72 10^6/uL (4.30-6.10); WHITE BLOOD COUNT 7.4 10^3/uL (4.0-10.0)
[2022-06-27 05:27] LABS: PLATELET COUNT, AUTOMATED 91 10^3/uL (150-450)
[2022-06-27 05:47] LABS: MAGNESIUM LEVEL 1.4 MG/DL (1.8-2.4)
[2022-06-27 05:54] LABS: ALBUMIN 2.2 G/DL (3.2-5.2); ALKALINE PHOSPHATASE 71 U/L (46-116); ALT/SGPT 13 U/L (7.0-40); AST/SGOT 30 U/L (<34); BILIRUBIN,TOTAL 2.1 MG/DL (0.3-1.2); BLOOD UREA NITROGEN 11 MG/DL (9-23); CALCIUM LEVEL 7.6 MG/DL (8.5-10.1); CARBON DIOXIDE LEVEL 32 MMOL/L (20-31); CHLORIDE LEVEL 90 MMOL/L (98-107); CREATININE FOR GFR 0.31 MG/DL (0.70-1.30); GLOMERULAR FILTRATION RATE > 60.0 (>56); GLUCOSE, FASTING 96 MG/DL (60-100); PHOSPHORUS LEVEL 5.4 MG/DL (2.5-4.9); POTASSIUM SERUM 3.6 MMOL/L (3.5-5.1); SODIUM LEVEL 128 MMOL/L (136-145); TOTAL PROTEIN 4.4 G/DL (5.7-8.2)
[2022-06-27 06:13] LABS: ABG O2 SATURATION 98.8 % (95.0-99.0); ABG PARTIAL PRESSURE CO2 35.9 mmHg (35.0-45.0); ABG PARTIAL PRESSURE O2 129.4 mmHg (75.0-100.0); ABG TOTAL CO2 30.1 MEQ/L (22.0-29.0); ABG pH (ARTERIAL) 7.525 UNITS (7.350-7.450)
[2022-06-27] MEDS ORDERED: MAG SULF 1GM/100ML (MAG RUN) 1 GM in IV 1 EA IV ONE (06:40)
[2022-06-27] MEDS: FOLIC ACID 1MG TAB PO SCH (08:43)
[2022-06-27] MEDS: DICLOFENAC EPOLAMINE 1.3% PATCH TOP SCH ×2 (08:43→20:26)
[2022-06-27] MEDS: OYSTER SHELL CALCIUM 500 MG TAB PO SCH ×3 (08:43→20:26)
[2022-06-27] MEDS: CALCITRIOL 0.25 MCG CAP (S0169) PO SCH (09:00)
[2022-06-27] MEDS ORDERED: E-Z-PAQUE 96% w/w SUSP 176GM BTL As Ordered ONE (09:01)
[2022-06-27] MEDS ORDERED: VARIBAR PUDDING 40% w/v 230ML TUBE As Ordered ONE (09:01)
[2022-06-27] MEDS ORDERED: VARIBAR NECTAR 40% w/v 240ML SUSP BTL As Ordered ONE (09:01)
[2022-06-27] MEDS ORDERED: BARIUM SULFATE 700 MG TABLET (E-Z-DISK) As Ordered ONE (09:02)
[2022-06-27] MEDS ORDERED: FUROSEMIDE 20MG/2ML VIAL IV ONE (09:40)
[2022-06-27] MEDS: PANTOPRAZOLE 40MG VIAL IV SCH (10:29)
[2022-06-27] MEDS: MIDODRINE 5 MG TAB PO SCH ×2 (12:12→16:13)
[2022-06-27 15:47] LABS: BLOOD UREA NITROGEN 11 MG/DL (9-23); CALCIUM LEVEL 7.8 MG/DL (8.5-10.1); CARBON DIOXIDE LEVEL 32 MMOL/L (20-31); CHLORIDE LEVEL 88 MMOL/L (98-107); CREATININE FOR GFR 0.31 MG/DL (0.70-1.30); GLOMERULAR FILTRATION RATE > 60.0 (>56); GLUCOSE, FASTING 102 MG/DL (60-100); POTASSIUM SERUM 3.4 MMOL/L (3.5-5.1); SODIUM LEVEL 126 MMOL/L (136-145)
[2022-06-27] MEDS: PIPERACILLIN/TAZOBACTAM SOD 3.375 GM in NS MINI-BAG PLUS 50 ML IV SCH ×2 (16:23→21:39)
[2022-06-27] MEDS ORDERED: KCL 20MEQ IN 100ML SWI (KRUN) 20 MEQ in IV 1 EA IV ONE ×2 (18:00)
[2022-06-27 22:28] LABS: BLOOD UREA NITROGEN 15 MG/DL (9-23); CALCIUM LEVEL 7.4 MG/DL (8.5-10.1); CARBON DIOXIDE LEVEL 31 MMOL/L (20-31); CHLORIDE LEVEL 92 MMOL/L (98-107); CREATININE FOR GFR 0.32 MG/DL (0.70-1.30); GLOMERULAR FILTRATION RATE > 60.0 (>56); GLUCOSE, FASTING 112 MG/DL (60-100); POTASSIUM SERUM 3.7 MMOL/L (3.5-5.1); SODIUM LEVEL 129 MMOL/L (136-145)
[2022-06-28 00:24] VITALS: BP 97/68
[2022-06-28] MEDS: PIPERACILLIN/TAZOBACTAM SOD 3.375 GM in NS MINI-BAG PLUS 50 ML IV SCH ×2 (04:04→11:20)
[2022-06-28 04:30] VITALS: BP 101/68
[2022-06-28] MEDS: ENOXAPARIN 80MG/0.8ML SYRINGE (J1650 PER 10MG) SC SCH ×2 (06:01→18:09)
[2022-06-28] MEDS: SODIUM CHLORIDE 0.9% INJ 10 ML SYR IV SCH ×2 (06:02→16:05)
[2022-06-28 06:17] LABS: HEMATOCRIT 24.9 % (42.0-52.0); HEMOGLOBIN 8.5 g/dl (13.5-17.5); MEAN CORPUSCULAR HEMOGLOBIN 36.8 pg (27.0-33.0); MEAN CORPUSCULAR HGB CONC 34.1 g/dl (32.0-36.5); MEAN CORPUSCULAR VOLUME 107.8 fl (80.0-96.0); RED BLOOD COUNT 2.31 10^6/uL (4.30-6.10)
[2022-06-28 06:22] LABS: PLATELET COUNT, AUTOMATED 87 10^3/uL (150-450)
[2022-06-28 08:00] VITALS: BP 101/69
[2022-06-28] MEDS: IPRATROPIUM 0.5MG/ALBUTEROL 2.5MG INH SOL UD 3ML (DUONEB) NEB SCH ×2 (08:16→15:58)
[2022-06-28 08:18] VITALS: O2SAT 93
[2022-06-28] MEDS: PANTOPRAZOLE 40MG VIAL IV SCH (08:53)
[2022-06-28] MEDS: FOLIC ACID 1MG TAB PO SCH (08:53)
[2022-06-28] MEDS: MIDODRINE 5 MG TAB PO SCH ×3 (08:53→16:04)
[2022-06-28] MEDS: OYSTER SHELL CALCIUM 500 MG TAB PO SCH ×3 (08:53→20:47)
[2022-06-28] MEDS: CALCITRIOL 0.25 MCG CAP (S0169) PO SCH (08:53)
[2022-06-28] MEDS: DICLOFENAC EPOLAMINE 1.3% PATCH TOP SCH ×2 (08:53→20:46)
[2022-06-28] MEDS: [UNRECOGNIZED DRUG - REMARK] XX SCH ×2 (09:00→16:34)
[2022-06-28] MEDS ORDERED: VARIBAR NECTAR 40% w/v 240ML SUSP BTL As Ordered ONE (09:28)
[2022-06-28] MEDS ORDERED: E-Z-PAQUE 96% w/w SUSP 176GM BTL As Ordered ONE (09:28)
[2022-06-28] MEDS ORDERED: VARIBAR PUDDING 40% w/v 230ML TUBE As Ordered ONE (09:28)
[2022-06-28] MEDS ORDERED: BARIUM SULFATE 700 MG TABLET (E-Z-DISK) As Ordered ONE (09:28)
[2022-06-28 09:42] LABS: MAGNESIUM LEVEL 1.3 MG/DL (1.8-2.4)
[2022-06-28 09:45] LABS: BLOOD UREA NITROGEN 12 MG/DL (9-23); CALCIUM LEVEL 7.4 MG/DL (8.5-10.1); CARBON DIOXIDE LEVEL 32 MMOL/L (20-31); CHLORIDE LEVEL 94 MMOL/L (98-107); GLOMERULAR FILTRATION RATE > 60.0 (>56); GLUCOSE, FASTING 112 MG/DL (60-100); POTASSIUM SERUM 3.6 MMOL/L (3.5-5.1); SODIUM LEVEL 131 MMOL/L (136-145)
[2022-06-28] MEDS: MAG SULF 1GM/100ML (MAG RUN) 1 GM in IV 1 EA IV SCH ×2 (11:20→13:18)
[2022-06-28 12:00] VITALS: BP 110/82
[2022-06-28] MEDS ORDERED: NEOSPORIN OINT 0.9 GM PKT TOP ONE (15:50)
[2022-06-28] MEDS: LACTOBACILLUS ACIDOPHILUS CAP (BACID) PO SCH (16:05)
[2022-06-28] MEDS: SIMETHICONE 80MG CHEW TAB PO PRN (18:05)
[2022-06-28 18:44] LABS: BLOOD UREA NITROGEN 13 MG/DL (9-23); CALCIUM LEVEL 7.6 MG/DL (8.5-10.1); CARBON DIOXIDE LEVEL 30 MMOL/L (20-31); CHLORIDE LEVEL 93 MMOL/L (98-107); CREATININE FOR GFR 0.29 MG/DL (0.70-1.30); GLOMERULAR FILTRATION RATE > 60.0 (>56); GLUCOSE, FASTING 106 MG/DL (60-100); POTASSIUM SERUM 3.2 MMOL/L (3.5-5.1); SODIUM LEVEL 131 MMOL/L (136-145)
[2022-06-28] MEDS: MAGNESIUM OXIDE 400MG TAB (MAG-OX) PO SCH (20:47)
[2022-06-28] MEDS: AUGMENTIN 875 MG TAB PO SCH (20:47)
[2022-06-28 20:48] VITALS: BP 118/82
[2022-06-29] MEDS ORDERED: ACETAMINOPHEN 325MG/10.15ML UDC GT PRN (02:00)
[2022-06-29] MEDS: SENOKOT S TAB PO PRN ×2 (02:09→21:33)
[2022-06-29 04:05] VITALS: BP 109/76
[2022-06-29] MEDS: ENOXAPARIN 80MG/0.8ML SYRINGE (J1650 PER 10MG) SC SCH ×2 (05:53→17:22)
[2022-06-29 06:50] LABS: BLOOD UREA NITROGEN 10 MG/DL (9-23); CALCIUM LEVEL 7.4 MG/DL (8.5-10.1); CARBON DIOXIDE LEVEL 30 MMOL/L (20-31); CHLORIDE LEVEL 95 MMOL/L (98-107); CREATININE FOR GFR 0.28 MG/DL (0.70-1.30); GLOMERULAR FILTRATION RATE > 60.0 (>56); GLUCOSE, FASTING 110 MG/DL (60-100); POTASSIUM SERUM 3.8 MMOL/L (3.5-5.1); SODIUM LEVEL 130 MMOL/L (136-145)
[2022-06-29] MEDS: [UNRECOGNIZED DRUG - REMARK] XX SCH (07:45)
[2022-06-29] MEDS: PANTOPRAZOLE 40MG VIAL IV SCH (07:51)
[2022-06-29] MEDS: DICLOFENAC EPOLAMINE 1.3% PATCH TOP SCH ×2 (07:51→21:32)
[2022-06-29] MEDS: MAGNESIUM OXIDE 400MG TAB (MAG-OX) PO SCH ×3 (07:52→17:23)
[2022-06-29] MEDS: MIDODRINE 5 MG TAB PO SCH ×3 (07:52→17:22)
[2022-06-29] MEDS: OYSTER SHELL CALCIUM 500 MG TAB PO SCH ×3 (07:52→21:34)
[2022-06-29] MEDS: FOLIC ACID 1MG TAB PO SCH (07:52)
[2022-06-29] MEDS: LACTOBACILLUS ACIDOPHILUS CAP (BACID) PO SCH (07:52)
[2022-06-29] MEDS: AUGMENTIN 875 MG TAB PO SCH ×2 (07:52→21:33)
[2022-06-29] MEDS: CALCITRIOL 0.25 MCG CAP (S0169) PO SCH (07:53)
[2022-06-29] MEDS ORDERED: LACTULOSE 20GM/30ML SYRUP UDC PO PRN (08:05)
[2022-06-29 08:17] LABS: MAGNESIUM LEVEL 1.4 MG/DL (1.8-2.4)
[2022-06-29] MEDS: IPRATROPIUM 0.5MG/ALBUTEROL 2.5MG INH SOL UD 3ML (DUONEB) NEB SCH ×3 (08:19→15:28)
[2022-06-29] MEDS ORDERED: MAG SULF 1GM/100ML (MAG RUN) 1 GM in IV 1 EA IV SCH (09:00)
[2022-06-29] MEDS: MIRALAX *UNIT DOSE* 17GM PACKET PO SCH (09:36)
[2022-06-29 12:04] VITALS: BP 122/91
[2022-06-29 14:43] LABS: MAGNESIUM LEVEL 1.4 MG/DL (1.8-2.4)
[2022-06-29 14:48] LABS: PHOSPHORUS LEVEL 2.6 MG/DL (2.5-4.9)
[2022-06-29] MEDS ORDERED: MAG SULF 1GM/100ML (MAG RUN) 1 GM in IV 1 EA IV ONE ×4 (16:20)
[2022-06-29] MEDS ORDERED: MAGNESIUM OXIDE 400MG TAB (MAG-OX) PO ONE (16:30)
[2022-06-29] MEDS: FAMOTIDINE 20 MG TAB PO SCH (17:22)
[2022-06-29 18:37] LABS: BLOOD UREA NITROGEN 7 MG/DL (9-23); CALCIUM LEVEL 8.1 MG/DL (8.5-10.1); CARBON DIOXIDE LEVEL 28 MMOL/L (20-31); CHLORIDE LEVEL 93 MMOL/L (98-107); CREATININE FOR GFR 0.22 MG/DL (0.70-1.30); GLOMERULAR FILTRATION RATE > 60.0 (>56); GLUCOSE, FASTING 108 MG/DL (60-100); POTASSIUM SERUM 3.8 MMOL/L (3.5-5.1); SODIUM LEVEL 128 MMOL/L (136-145)
[2022-06-29 20:00] VITALS: BP 121/87
[2022-06-30] MEDS: IPRATROPIUM 0.5MG/ALBUTEROL 2.5MG INH SOL UD 3ML (DUONEB) NEB SCH ×4 (00:27→23:15)
[2022-06-30] MEDS: MAGNESIUM OXIDE 400MG TAB (MAG-OX) PO SCH ×5 (00:50→23:54)
[2022-06-30 04:52] LABS: MAGNESIUM LEVEL 1.2 MG/DL (1.8-2.4)
[2022-06-30 04:54] LABS: BLOOD UREA NITROGEN 8 MG/DL (9-23); CALCIUM LEVEL 7.5 MG/DL (8.5-10.1); CARBON DIOXIDE LEVEL 29 MMOL/L (20-31); CHLORIDE LEVEL 93 MMOL/L (98-107); CREATININE FOR GFR 0.26 MG/DL (0.70-1.30); GLOMERULAR FILTRATION RATE > 60.0 (>56); GLUCOSE, FASTING 103 MG/DL (60-100); POTASSIUM SERUM 4.2 MMOL/L (3.5-5.1); SODIUM LEVEL 126 MMOL/L (136-145)
[2022-06-30] MEDS: ENOXAPARIN 80MG/0.8ML SYRINGE (J1650 PER 10MG) SC SCH (06:55)
[2022-06-30] MEDS: MAG SULF 1GM/100ML (MAG RUN) 1 GM in IV 1 EA IV SCH ×2 (06:55→08:25)
[2022-06-30 06:57] LABS: BASO % 0.6 % (0.0-1.0); EOS # 0.1 10^3/uL (0.0-0.5); HEMATOCRIT 25.5 % (42.0-52.0); HEMOGLOBIN 8.9 g/dl (13.5-17.5); LYMPH # 0.4 10^3/uL (1.5-5.0); LYMPH % 7.3 % (24.0-44.0); MEAN CORPUSCULAR HEMOGLOBIN 37.9 pg (27.0-33.0); MEAN CORPUSCULAR HGB CONC 34.9 g/dl (32.0-36.5); MEAN CORPUSCULAR VOLUME 108.5 fl (80.0-96.0); MONO # 0.6 10^3/uL (0.0-0.8); MONO % 12.1 % (2.0-8.0); NEUTROPHILS # 4.1 10^3/uL (1.5-8.5); NEUTROPHILS % 78.2 % (36.0-66.0); PLATELET COUNT, AUTOMATED 101 10^3/uL (150-450); RED BLOOD COUNT 2.35 10^6/uL (4.30-6.10); WHITE BLOOD COUNT 5.2 10^3/uL (4.0-10.0)
[2022-06-30 08:00] VITALS: BP 113/80
[2022-06-30] MEDS: FAMOTIDINE 20 MG TAB PO SCH (08:30)
[2022-06-30] MEDS: FOLIC ACID 1MG TAB PO SCH (08:30)
[2022-06-30] MEDS: LACTOBACILLUS ACIDOPHILUS CAP (BACID) PO SCH (08:30)
[2022-06-30] MEDS: MIDODRINE 5 MG TAB PO SCH ×3 (08:30→16:07)
[2022-06-30] MEDS: DICLOFENAC EPOLAMINE 1.3% PATCH TOP SCH ×2 (08:31→21:14)
[2022-06-30] MEDS: OYSTER SHELL CALCIUM 500 MG TAB PO SCH ×3 (08:31→20:35)
[2022-06-30] MEDS: [UNRECOGNIZED DRUG - REMARK] XX SCH (08:32)
[2022-06-30] MEDS: MIRALAX *UNIT DOSE* 17GM PACKET PO SCH (08:32)
[2022-06-30] MEDS: AUGMENTIN 875 MG TAB PO SCH ×2 (08:32→20:36)
[2022-06-30] MEDS: CALCITRIOL 0.25 MCG CAP (S0169) PO SCH (08:32)
[2022-06-30] MEDS: SODIUM CHLORIDE 1 GM TAB PEG SCH ×3 (10:13→20:36)
[2022-06-30 16:00] VITALS: BP 135/94
[2022-06-30] MEDS: THIAMINE 100 MG TAB PO SCH (16:08)
[2022-06-30] MEDS: RIVAROXABAN 20MG TAB (XARELTO) PO SCH (18:40)
[2022-06-30] MEDS: MAGNESIUM SULFATE 8 MEQ in NS 100 ML IV SCH ×2 (18:41→19:46)
[2022-06-30] MEDS: MIRTAZAPINE 15 MG TAB PO SCH (20:36)
[2022-06-30 22:00] VITALS: BP 125/87
[2022-06-30] MEDS: RAMELTEON 8 MG TAB (ROZEREM) PO PRN (23:53)
[2022-07-01] MEDS: MAGNESIUM OXIDE 400MG TAB (MAG-OX) PO SCH ×2 (05:17→10:45)
[2022-07-01 06:00] VITALS: BP 125/87
[2022-07-01 06:47] LABS: BASO % 0.4 % (0.0-1.0); EOS # 0.1 10^3/uL (0.0-0.5); EOS % 1.5 % (0.0-3.0); HEMOGLOBIN 8.2 g/dl (13.5-17.5); LYMPH # 0.3 10^3/uL (1.5-5.0); LYMPH % 5.6 % (24.0-44.0); MEAN CORPUSCULAR HEMOGLOBIN 36.9 pg (27.0-33.0); MEAN CORPUSCULAR HGB CONC 34.2 g/dl (32.0-36.5); MEAN CORPUSCULAR VOLUME 108.1 fl (80.0-96.0); MONO # 0.6 10^3/uL (0.0-0.8); MONO % 10.9 % (2.0-8.0); NEUTROPHILS # 4.3 10^3/uL (1.5-8.5); NEUTROPHILS % 80.8 % (36.0-66.0); PLATELET COUNT, AUTOMATED 120 10^3/uL (150-450); RED BLOOD COUNT 2.22 10^6/uL (4.30-6.10); WHITE BLOOD COUNT 5.3 10^3/uL (4.0-10.0)
[2022-07-01] MEDS ORDERED: MAGNESIUM SULFATE 8 MEQ in NS 100 ML IV ONE (07:00)
[2022-07-01 07:15] LABS: MAGNESIUM LEVEL 1.3 MG/DL (1.8-2.4)
[2022-07-01 07:17] LABS: BLOOD UREA NITROGEN 7 MG/DL (9-23); CALCIUM LEVEL 7.4 MG/DL (8.5-10.1); CARBON DIOXIDE LEVEL 27 MMOL/L (20-31); CHLORIDE LEVEL 92 MMOL/L (98-107); CREATININE FOR GFR 0.21 MG/DL (0.70-1.30); GLOMERULAR FILTRATION RATE > 60.0 (>56); GLUCOSE, FASTING 112 MG/DL (60-100); POTASSIUM SERUM 4.1 MMOL/L (3.5-5.1); SODIUM LEVEL 124 MMOL/L (136-145)
[2022-07-01] MEDS: IPRATROPIUM 0.5MG/ALBUTEROL 2.5MG INH SOL UD 3ML (DUONEB) NEB SCH ×3 (07:31→23:37)
[2022-07-01] MEDS ORDERED: MIDODRINE 2.5 MG TAB PO SCH (08:00)
[2022-07-01] MEDS: DICLOFENAC EPOLAMINE 1.3% PATCH TOP SCH ×2 (10:43→20:13)
[2022-07-01] MEDS: SODIUM CHLORIDE 1 GM TAB PEG SCH (10:44)
[2022-07-01] MEDS: OYSTER SHELL CALCIUM 500 MG TAB PO SCH ×3 (10:44→20:12)
[2022-07-01] MEDS: CALCITRIOL 0.25 MCG CAP (S0169) PO SCH (10:45)
[2022-07-01] MEDS: AUGMENTIN 875 MG TAB PO SCH (10:46)
[2022-07-01] MEDS: LACTOBACILLUS ACIDOPHILUS CAP (BACID) PO SCH (10:46)
[2022-07-01] MEDS: FAMOTIDINE 20 MG TAB PO SCH (10:46)
[2022-07-01] MEDS: THIAMINE 100 MG TAB PO SCH (10:47)
[2022-07-01] MEDS: FOLIC ACID 1MG TAB PO SCH (10:47)
[2022-07-01] MEDS ORDERED: MIDODRINE 2.5 MG TAB PO PRN (11:45)
[2022-07-01] MEDS ORDERED: TOLVAPTAN 7.5 MG HALF-TAB PO ONE (13:00)
[2022-07-01] MEDS: MAGNESIUM SULFATE 8 MEQ in NS 100 ML IV SCH ×2 (13:55→13:56)
[2022-07-01 14:00] VITALS: BP 125/87
[2022-07-01] MEDS: RIVAROXABAN 20MG TAB (XARELTO) PO SCH (18:03)
[2022-07-01] MEDS: MAGNESIUM OXIDE 400MG TAB (MAG-OX) PEG SCH ×2 (18:03→20:12)
[2022-07-01] MEDS: VITAMIN A & D OINTMENT 42.5GM TOP PRN (18:03)
[2022-07-01] MEDS: RAMELTEON 8 MG TAB (ROZEREM) PO PRN (20:11)
[2022-07-01] MEDS: MIRTAZAPINE 15 MG TAB PO SCH (20:11)
[2022-07-01] MEDS: SIMETHICONE 80MG CHEW TAB PO PRN (20:11)
[2022-07-01] MEDS ORDERED: ALPRAZolam 0.5 MG TAB PO ONE (21:00)
[2022-07-01 22:00] VITALS: BP 124/88
[2022-07-01] MEDS ORDERED: MAGNESIUM OXIDE 400MG TAB (MAG-OX) PO ONE (22:10)
[2022-07-02 06:00] VITALS: BP 123/89
[2022-07-02 07:17] LABS: BASO % 0.7 % (0.0-1.0); EOS # 0.1 10^3/uL (0.0-0.5); EOS % 1.3 % (0.0-3.0); HEMATOCRIT 24.7 % (42.0-52.0); HEMOGLOBIN 8.4 g/dl (13.5-17.5); LYMPH # 0.3 10^3/uL (1.5-5.0); MEAN CORPUSCULAR VOLUME 108.8 fl (80.0-96.0); MONO # 0.6 10^3/uL (0.0-0.8); MONO % 12.8 % (2.0-8.0); NEUTROPHILS # 3.5 10^3/uL (1.5-8.5); NEUTROPHILS % 77.3 % (36.0-66.0); PLATELET COUNT, AUTOMATED 152 10^3/uL (150-450); RED BLOOD COUNT 2.27 10^6/uL (4.30-6.10); WHITE BLOOD COUNT 4.5 10^3/uL (4.0-10.0)
[2022-07-02] MEDS: IPRATROPIUM 0.5MG/ALBUTEROL 2.5MG INH SOL UD 3ML (DUONEB) NEB SCH ×3 (07:26→23:00)
[2022-07-02 07:42] LABS: MAGNESIUM LEVEL 1.4 MG/DL (1.8-2.4)
[2022-07-02 07:44] LABS: BLOOD UREA NITROGEN 7 MG/DL (9-23); CALCIUM LEVEL 7.9 MG/DL (8.5-10.1); CARBON DIOXIDE LEVEL 27 MMOL/L (20-31); CHLORIDE LEVEL 97 MMOL/L (98-107); CREATININE FOR GFR 0.22 MG/DL (0.70-1.30); GLOMERULAR FILTRATION RATE > 60.0 (>56); GLUCOSE, FASTING 122 MG/DL (60-100); POTASSIUM SERUM 4.3 MMOL/L (3.5-5.1); SODIUM LEVEL 131 MMOL/L (136-145)
[2022-07-02] MEDS: FOLIC ACID 1MG TAB PO SCH (08:38)
[2022-07-02] MEDS: SIMETHICONE 80MG CHEW TAB PO PRN ×2 (08:38→16:58)
[2022-07-02] MEDS: THIAMINE 100 MG TAB PO SCH (08:39)
[2022-07-02] MEDS: FAMOTIDINE 20 MG TAB PO SCH (08:39)
[2022-07-02] MEDS: LACTOBACILLUS ACIDOPHILUS CAP (BACID) PO SCH (08:39)
[2022-07-02] MEDS: MAGNESIUM OXIDE 400MG TAB (MAG-OX) PEG SCH ×3 (08:39→20:03)
[2022-07-02] MEDS: OYSTER SHELL CALCIUM 500 MG TAB PO SCH ×3 (08:40→20:02)
[2022-07-02] MEDS: CALCITRIOL 0.25 MCG CAP (S0169) PO SCH (08:40)
[2022-07-02] MEDS: DICLOFENAC EPOLAMINE 1.3% PATCH TOP SCH ×2 (08:41→20:03)
[2022-07-02] MEDS ORDERED: MAG SULF 1GM/100ML (MAG RUN) 1 GM in IV 1 EA IV ONE (10:00)
[2022-07-02 14:00] VITALS: BP 125/90
[2022-07-02] MEDS ORDERED: TOLVAPTAN 7.5 MG HALF-TAB PO ONE (14:00)
[2022-07-02] MEDS: RIVAROXABAN 20MG TAB (XARELTO) PO SCH (17:00)
[2022-07-02] MEDS: MIRTAZAPINE 15 MG TAB PO SCH (20:02)
[2022-07-02] MEDS: RAMELTEON 8 MG TAB (ROZEREM) PO PRN (20:03)
[2022-07-02] MEDS ORDERED: ALPRAZolam 0.5 MG TAB PO ONE (21:00)
[2022-07-02 22:00] VITALS: BP 125/80
[2022-07-03 06:00] VITALS: BP 127/80
[2022-07-03 06:07] LABS: BASO % 0.6 % (0.0-1.0); EOS # 0.1 10^3/uL (0.0-0.5); EOS % 1.8 % (0.0-3.0); HEMATOCRIT 24.8 % (42.0-52.0); HEMOGLOBIN 8.4 g/dl (13.5-17.5); LYMPH # 0.4 10^3/uL (1.5-5.0); LYMPH % 7.6 % (24.0-44.0); MEAN CORPUSCULAR HEMOGLOBIN 37.3 pg (27.0-33.0); MEAN CORPUSCULAR HGB CONC 33.9 g/dl (32.0-36.5); MEAN CORPUSCULAR VOLUME 110.2 fl (80.0-96.0); MONO # 0.8 10^3/uL (0.0-0.8); NEUTROPHILS # 3.7 10^3/uL (1.5-8.5); NEUTROPHILS % 73.6 % (36.0-66.0); PLATELET COUNT, AUTOMATED 193 10^3/uL (150-450); RED BLOOD COUNT 2.25 10^6/uL (4.30-6.10)
[2022-07-03 06:41] LABS: BLOOD UREA NITROGEN 7 MG/DL (9-23); CALCIUM LEVEL 8.3 MG/DL (8.5-10.1); CARBON DIOXIDE LEVEL 28 MMOL/L (20-31); CHLORIDE LEVEL 97 MMOL/L (98-107); CREATININE FOR GFR 0.25 MG/DL (0.70-1.30); GLOMERULAR FILTRATION RATE > 60.0 (>56); GLUCOSE, FASTING 128 MG/DL (60-100); POTASSIUM SERUM 4.5 MMOL/L (3.5-5.1); SODIUM LEVEL 132 MMOL/L (136-145)
[2022-07-03] MEDS ORDERED: MAG SULF 1GM/100ML (MAG RUN) 1 GM in IV 1 EA IV ONE (07:30)
[2022-07-03] MEDS: IPRATROPIUM 0.5MG/ALBUTEROL 2.5MG INH SOL UD 3ML (DUONEB) NEB SCH ×3 (07:58→23:17)
[2022-07-03] MEDS: THIAMINE 100 MG TAB PO SCH (09:00)
[2022-07-03] MEDS: FAMOTIDINE 20 MG TAB PO SCH (09:00)
[2022-07-03] MEDS: LACTOBACILLUS ACIDOPHILUS CAP (BACID) PO SCH (09:00)
[2022-07-03] MEDS ORDERED: MAG SULF 1GM/100ML (MAG RUN) 1 GM in IV 1 EA IV SCH (10:35)
[2022-07-03] MEDS: MAGNESIUM SULFATE 8 MEQ in NS 100 ML IV SCH ×4 (10:57→18:12)
[2022-07-03] MEDS: FOLIC ACID 1MG TAB PO SCH (10:59)
[2022-07-03] MEDS: OYSTER SHELL CALCIUM 500 MG TAB PO SCH ×3 (11:00→20:17)
[2022-07-03] MEDS: CALCITRIOL 0.25 MCG CAP (S0169) PO SCH (11:00)
[2022-07-03] MEDS: DICLOFENAC EPOLAMINE 1.3% PATCH TOP SCH ×2 (11:01→20:18)
[2022-07-03 14:00] VITALS: BP 123/89
[2022-07-03] MEDS: RIVAROXABAN 20MG TAB (XARELTO) PO SCH (16:58)
[2022-07-03] MEDS: MIRTAZAPINE 15 MG TAB PO SCH (20:17)
[2022-07-03] MEDS: RAMELTEON 8 MG TAB (ROZEREM) PO PRN (20:17)
[2022-07-03 22:35] VITALS: BP 119/84
[2022-07-04 05:21] VITALS: BP 124/91
[2022-07-04 06:13] LABS: BASO % 0.8 % (0.0-1.0); EOS # 0.1 10^3/uL (0.0-0.5); HEMATOCRIT 24.4 % (42.0-52.0); LYMPH # 0.5 10^3/uL (1.5-5.0); LYMPH % 9.6 % (24.0-44.0); MEAN CORPUSCULAR HEMOGLOBIN 36.5 pg (27.0-33.0); MEAN CORPUSCULAR HGB CONC 32.8 g/dl (32.0-36.5); MEAN CORPUSCULAR VOLUME 111.4 fl (80.0-96.0); MONO # 0.8 10^3/uL (0.0-0.8); NEUTROPHILS # 3.4 10^3/uL (1.5-8.5); NEUTROPHILS % 70.6 % (36.0-66.0); PLATELET COUNT, AUTOMATED 225 10^3/uL (150-450); RED BLOOD COUNT 2.19 10^6/uL (4.30-6.10); WHITE BLOOD COUNT 4.9 10^3/uL (4.0-10.0)
[2022-07-04 06:40] LABS: MAGNESIUM LEVEL 1.5 MG/DL (1.8-2.4)
[2022-07-04 06:41] LABS: BLOOD UREA NITROGEN 8 MG/DL (9-23); CALCIUM LEVEL 8.2 MG/DL (8.5-10.1); CARBON DIOXIDE LEVEL 28 MMOL/L (20-31); CHLORIDE LEVEL 97 MMOL/L (98-107); CREATININE FOR GFR 0.28 MG/DL (0.70-1.30); GLOMERULAR FILTRATION RATE > 60.0 (>56); GLUCOSE, FASTING 107 MG/DL (60-100); POTASSIUM SERUM 4.5 MMOL/L (3.5-5.1); SODIUM LEVEL 131 MMOL/L (136-145)
[2022-07-04] MEDS ORDERED: MAG SULF 1GM/100ML (MAG RUN) 1 GM in IV 1 EA IV ONE (07:15)
[2022-07-04] MEDS: IPRATROPIUM 0.5MG/ALBUTEROL 2.5MG INH SOL UD 3ML (DUONEB) NEB SCH ×2 (08:00→16:00)
[2022-07-04] MEDS: FLUTICASONE PROP 0.05% NASAL SPRAY 16 GM (FLONASE) NARES SCH ×2 (09:00→20:38)
[2022-07-04] MEDS: CALCITRIOL 0.25 MCG CAP (S0169) PO SCH (09:37)
[2022-07-04] MEDS: LACTOBACILLUS ACIDOPHILUS CAP (BACID) PO SCH (09:37)
[2022-07-04] MEDS: OYSTER SHELL CALCIUM 500 MG TAB PO SCH ×3 (09:37→20:38)
[2022-07-04] MEDS: FOLIC ACID 1MG TAB PO SCH (09:37)
[2022-07-04] MEDS: THIAMINE 100 MG TAB PO SCH (09:37)
[2022-07-04] MEDS: FAMOTIDINE 20 MG TAB PO SCH (09:37)
[2022-07-04] MEDS: DICLOFENAC EPOLAMINE 1.3% PATCH TOP SCH ×2 (09:38→20:39)
[2022-07-04] MEDS: MAGNESIUM SULFATE 8 MEQ in NS 100 ML IV SCH ×2 (10:47→11:53)
[2022-07-04 11:00] VITALS: BP 120/90
[2022-07-04] MEDS: MAGNESIUM GLUCONATE 500 MG TAB PEG SCH ×3 (12:40→20:38)
[2022-07-04 14:00] VITALS: BP 128/91
[2022-07-04] MEDS: RIVAROXABAN 20MG TAB (XARELTO) PO SCH (17:15)
[2022-07-04] MEDS: MIRTAZAPINE 15 MG TAB PO SCH (20:38)
[2022-07-04 22:24] VITALS: BP 123/87
[2022-07-05 05:13] VITALS: BP 121/86
[2022-07-05 06:13] LABS: BASO % 0.7 % (0.0-1.0); EOS # 0.1 10^3/uL (0.0-0.5); EOS % 2.7 % (0.0-3.0); HEMATOCRIT 22.8 % (42.0-52.0); HEMOGLOBIN 7.6 g/dl (13.5-17.5); LYMPH # 0.5 10^3/uL (1.5-5.0); LYMPH % 10.8 % (24.0-44.0); MEAN CORPUSCULAR HEMOGLOBIN 36.9 pg (27.0-33.0); MEAN CORPUSCULAR HGB CONC 33.3 g/dl (32.0-36.5); MEAN CORPUSCULAR VOLUME 110.7 fl (80.0-96.0); MONO # 0.7 10^3/uL (0.0-0.8); MONO % 16.2 % (2.0-8.0); NEUTROPHILS % 68.5 % (36.0-66.0); PLATELET COUNT, AUTOMATED 237 10^3/uL (150-450); RED BLOOD COUNT 2.06 10^6/uL (4.30-6.10); WHITE BLOOD COUNT 4.4 10^3/uL (4.0-10.0)
[2022-07-05 06:33] LABS: MAGNESIUM LEVEL 1.5 MG/DL (1.8-2.4)
[2022-07-05 06:39] LABS: BLOOD UREA NITROGEN 13 MG/DL (9-23); CALCIUM LEVEL 9.2 MG/DL (8.5-10.1); CARBON DIOXIDE LEVEL 30 MMOL/L (20-31); CHLORIDE LEVEL 98 MMOL/L (98-107); GLOMERULAR FILTRATION RATE > 60.0 (>56); GLUCOSE, FASTING 99 MG/DL (60-100); PHOSPHORUS LEVEL 5.4 MG/DL (2.5-4.9); POTASSIUM SERUM 4.4 MMOL/L (3.5-5.1); SODIUM LEVEL 133 MMOL/L (136-145)
[2022-07-05] MEDS: THIAMINE 100 MG TAB PO SCH (09:00)
[2022-07-05] MEDS: FLUTICASONE PROP 0.05% NASAL SPRAY 16 GM (FLONASE) NARES SCH ×2 (10:42→21:05)
[2022-07-05] MEDS: DICLOFENAC EPOLAMINE 1.3% PATCH TOP SCH ×2 (10:43→21:05)
[2022-07-05] MEDS: LACTOBACILLUS ACIDOPHILUS CAP (BACID) PO SCH (10:44)
[2022-07-05] MEDS: FAMOTIDINE 20 MG TAB PO SCH (10:45)
[2022-07-05] MEDS: MAGNESIUM GLUCONATE 500 MG TAB PEG SCH ×4 (10:45→21:06)
[2022-07-05] MEDS: OYSTER SHELL CALCIUM 500 MG TAB PO SCH (10:47)
[2022-07-05] MEDS: FOLIC ACID 1MG TAB PO SCH (10:48)
[2022-07-05] MEDS: CALCITRIOL 0.25 MCG CAP (S0169) PO SCH (10:49)
[2022-07-05 14:15] VITALS: BP 122/78
[2022-07-05] MEDS: RIVAROXABAN 20MG TAB (XARELTO) PO SCH (17:17)
[2022-07-05] MEDS: MIRTAZAPINE 15 MG TAB PO SCH (21:05)
[2022-07-05] MEDS: RAMELTEON 8 MG TAB (ROZEREM) PO PRN (21:06)
[2022-07-05 23:12] VITALS: BP 115/81
[2022-07-06 05:25] VITALS: BP 126/84
[2022-07-06] MEDS: FOLIC ACID 1MG TAB PO SCH (08:35)
[2022-07-06] MEDS: LACTOBACILLUS ACIDOPHILUS CAP (BACID) PO SCH (08:35)
[2022-07-06] MEDS: DICLOFENAC EPOLAMINE 1.3% PATCH TOP SCH ×2 (08:35→20:51)
[2022-07-06] MEDS: MAGNESIUM GLUCONATE 500 MG TAB PEG SCH ×3 (08:36→20:51)
[2022-07-06] MEDS: CALCITRIOL 0.25 MCG CAP (S0169) PO SCH (08:37)
[2022-07-06] MEDS: THIAMINE 100 MG TAB PO SCH (08:37)
[2022-07-06] MEDS: FLUTICASONE PROP 0.05% NASAL SPRAY 16 GM (FLONASE) NARES SCH ×2 (08:37→20:52)
[2022-07-06] MEDS: FAMOTIDINE 20 MG TAB PO SCH (08:37)
[2022-07-06 08:58] LABS: HEMATOCRIT 23.5 % (42.0-52.0); HEMOGLOBIN 7.8 g/dl (13.5-17.5); MEAN CORPUSCULAR HEMOGLOBIN 36.4 pg (27.0-33.0); MEAN CORPUSCULAR HGB CONC 33.2 g/dl (32.0-36.5); MEAN CORPUSCULAR VOLUME 109.8 fl (80.0-96.0); PLATELET COUNT, AUTOMATED 268 10^3/uL (150-450); RED BLOOD COUNT 2.14 10^6/uL (4.30-6.10); WHITE BLOOD COUNT 4.1 10^3/uL (4.0-10.0)
[2022-07-06 09:26] LABS: MAGNESIUM LEVEL 1.5 MG/DL (1.8-2.4)
[2022-07-06 09:27] LABS: BLOOD UREA NITROGEN 17 MG/DL (9-23); CALCIUM LEVEL 9.5 MG/DL (8.5-10.1); CARBON DIOXIDE LEVEL 28 MMOL/L (20-31); CHLORIDE LEVEL 98 MMOL/L (98-107); CREATININE FOR GFR 0.29 MG/DL (0.70-1.30); GLOMERULAR FILTRATION RATE > 60.0 (>56); GLUCOSE, FASTING 139 MG/DL (60-100); POTASSIUM SERUM 4.1 MMOL/L (3.5-5.1); SODIUM LEVEL 132 MMOL/L (136-145)
[2022-07-06 14:31] VITALS: BP 129/89
[2022-07-06] MEDS: RIVAROXABAN 20MG TAB (XARELTO) PO SCH (18:52)
[2022-07-06] MEDS: RAMELTEON 8 MG TAB (ROZEREM) PO PRN (20:51)
[2022-07-06] MEDS: MIRTAZAPINE 15 MG TAB PO SCH (20:51)
[2022-07-07] VITALS (10 sets, daily range): BP systolic 101–133; BP diastolic 72–92
[2022-07-07 05:48] LABS: HEMATOCRIT 21.9 % (42.0-52.0); HEMOGLOBIN 7.1 g/dl (13.5-17.5); MEAN CORPUSCULAR HGB CONC 32.4 g/dl (32.0-36.5); MEAN CORPUSCULAR VOLUME 111.2 fl (80.0-96.0); PLATELET COUNT, AUTOMATED 258 10^3/uL (150-450); RED BLOOD COUNT 1.97 10^6/uL (4.30-6.10); WHITE BLOOD COUNT 3.3 10^3/uL (4.0-10.0)
[2022-07-07 06:09] LABS: MAGNESIUM LEVEL 1.4 MG/DL (1.8-2.4)
[2022-07-07 06:10] LABS: ALBUMIN 2.1 G/DL (3.2-5.2); BLOOD UREA NITROGEN 21 MG/DL (9-23); CALCIUM LEVEL 9.2 MG/DL (8.5-10.1); CARBON DIOXIDE LEVEL 32 MMOL/L (20-31); CHLORIDE LEVEL 99 MMOL/L (98-107); CREATININE FOR GFR 0.37 MG/DL (0.70-1.30); GLOMERULAR FILTRATION RATE > 60.0 (>56); GLUCOSE, FASTING 102 MG/DL (60-100); PHOSPHORUS LEVEL 5.3 MG/DL (2.5-4.9); POTASSIUM SERUM 4.1 MMOL/L (3.5-5.1); SODIUM LEVEL 136 MMOL/L (136-145)
[2022-07-07] MEDS: MAGNESIUM GLUCONATE 500 MG TAB PEG SCH ×3 (11:09→22:00)
[2022-07-07] MEDS: FAMOTIDINE 20 MG TAB PO SCH (11:10)
[2022-07-07] MEDS: CALCITRIOL 0.25 MCG CAP (S0169) PO SCH (11:10)
[2022-07-07] MEDS: LACTOBACILLUS ACIDOPHILUS CAP (BACID) PO SCH (11:10)
[2022-07-07] MEDS: FOLIC ACID 1MG TAB PO SCH (11:10)
[2022-07-07] MEDS: DICLOFENAC EPOLAMINE 1.3% PATCH TOP SCH ×2 (11:11→22:03)
[2022-07-07] MEDS: FLUTICASONE PROP 0.05% NASAL SPRAY 16 GM (FLONASE) NARES SCH ×2 (11:11→22:04)
[2022-07-07] MEDS: THIAMINE 100 MG TAB PO SCH (11:12)
[2022-07-07] MEDS: MAG SULF 1GM/100ML (MAG RUN) 1 GM in IV 1 EA IV SCH ×2 (11:12→12:32)
[2022-07-07] MEDS: RIVAROXABAN 20MG TAB (XARELTO) PO SCH (19:01)
[2022-07-07] MEDS: MIRTAZAPINE 15 MG TAB PO SCH (22:01)
[2022-07-08 05:53] VITALS: BP 101/72
[2022-07-08 06:20] LABS: HEMATOCRIT 25.8 % (42.0-52.0); HEMOGLOBIN 8.5 g/dl (13.5-17.5); MEAN CORPUSCULAR HEMOGLOBIN 34.8 pg (27.0-33.0); MEAN CORPUSCULAR HGB CONC 32.9 g/dl (32.0-36.5); MEAN CORPUSCULAR VOLUME 105.7 fl (80.0-96.0); PLATELET COUNT, AUTOMATED 300 10^3/uL (150-450); RED BLOOD COUNT 2.44 10^6/uL (4.30-6.10); WHITE BLOOD COUNT 4.2 10^3/uL (4.0-10.0)
[2022-07-08 06:42] LABS: BLOOD UREA NITROGEN 23 MG/DL (9-23); CALCIUM LEVEL 8.7 MG/DL (8.5-10.1); CARBON DIOXIDE LEVEL 28 MMOL/L (20-31); CHLORIDE LEVEL 99 MMOL/L (98-107); CREATININE FOR GFR 0.34 MG/DL (0.70-1.30); GLOMERULAR FILTRATION RATE > 60.0 (>56); GLUCOSE, FASTING 110 MG/DL (60-100); MAGNESIUM LEVEL 1.5 MG/DL (1.8-2.4); PHOSPHORUS LEVEL 4.9 MG/DL (2.5-4.9); POTASSIUM SERUM 4.2 MMOL/L (3.5-5.1); SODIUM LEVEL 135 MMOL/L (136-145)
[2022-07-08] MEDS: FLUTICASONE PROP 0.05% NASAL SPRAY 16 GM (FLONASE) NARES SCH ×2 (10:48→21:13)
[2022-07-08] MEDS: THIAMINE 100 MG TAB PO SCH (10:48)
[2022-07-08] MEDS: FOLIC ACID 1MG TAB PO SCH (10:48)
[2022-07-08] MEDS: LACTOBACILLUS ACIDOPHILUS CAP (BACID) PO SCH (10:48)
[2022-07-08] MEDS: FAMOTIDINE 20 MG TAB PO SCH (10:48)
[2022-07-08] MEDS: MAGNESIUM GLUCONATE 500 MG TAB PEG SCH ×4 (10:48→21:13)
[2022-07-08] MEDS: DICLOFENAC EPOLAMINE 1.3% PATCH TOP SCH ×2 (10:49→21:14)
[2022-07-08 15:22] VITALS: BP 117/86
[2022-07-08] MEDS: RIVAROXABAN 20MG TAB (XARELTO) PO SCH (18:23)
[2022-07-08] MEDS: RAMELTEON 8 MG TAB (ROZEREM) PO PRN (21:13)
[2022-07-08] MEDS: MIRTAZAPINE 15 MG TAB PO SCH (21:14)
[2022-07-08 21:32] VITALS: BP 119/83
[2022-07-09 06:00] VITALS: BP 118/82
[2022-07-09 09:00] LABS: BLOOD UREA NITROGEN 23 MG/DL (9-23); CALCIUM LEVEL 9.1 MG/DL (8.5-10.1); CARBON DIOXIDE LEVEL 27 MMOL/L (20-31); CHLORIDE LEVEL 101 MMOL/L (98-107); CREATININE FOR GFR 0.34 MG/DL (0.70-1.30); GLOMERULAR FILTRATION RATE > 60.0 (>56); GLUCOSE, FASTING 133 MG/DL (60-100); MAGNESIUM LEVEL 1.3 MG/DL (1.8-2.4); PHOSPHORUS LEVEL 4.5 MG/DL (2.5-4.9); POTASSIUM SERUM 4.4 MMOL/L (3.5-5.1); SODIUM LEVEL 136 MMOL/L (136-145)
[2022-07-09] MEDS: THIAMINE 100 MG TAB PO SCH (09:13)
[2022-07-09] MEDS: MAGNESIUM GLUCONATE 500 MG TAB PEG SCH ×4 (09:13→21:02)
[2022-07-09] MEDS: DICLOFENAC EPOLAMINE 1.3% PATCH TOP SCH ×2 (09:13→21:02)
[2022-07-09] MEDS: FAMOTIDINE 20 MG TAB PO SCH (09:13)
[2022-07-09] MEDS: FLUTICASONE PROP 0.05% NASAL SPRAY 16 GM (FLONASE) NARES SCH ×2 (09:14→21:03)
[2022-07-09] MEDS: FOLIC ACID 1MG TAB PO SCH (09:14)
[2022-07-09] MEDS: LACTOBACILLUS ACIDOPHILUS CAP (BACID) PO SCH (09:14)
[2022-07-09 11:00] LABS: ALBUMIN 2.3 G/DL (3.2-5.2)
[2022-07-09] MEDS: MAG SULF 1GM/100ML (MAG RUN) 1 GM in IV 1 EA IV SCH (11:25)
[2022-07-09] MEDS: SIMETHICONE 80MG CHEW TAB PO PRN (13:45)
[2022-07-09 14:00] VITALS: BP 111/81
[2022-07-09 15:11] LABS: PTH INTACT 6.6 PG/ML (18.5-88.0)
[2022-07-09] MEDS: RIVAROXABAN 20MG TAB (XARELTO) PO SCH (17:37)
[2022-07-09] MEDS: VITAMIN A & D OINTMENT 42.5GM TOP PRN (17:38)
[2022-07-09 20:34] LABS: ALBUMIN 2.4 G/DL (3.2-5.2); BLOOD UREA NITROGEN 23 MG/DL (9-23); CALCIUM LEVEL 8.8 MG/DL (8.5-10.1); CARBON DIOXIDE LEVEL 28 MMOL/L (20-31); CHLORIDE LEVEL 100 MMOL/L (98-107); CREATININE FOR GFR 0.34 MG/DL (0.70-1.30); GLOMERULAR FILTRATION RATE > 60.0 (>56); GLUCOSE, FASTING 103 MG/DL (60-100); POTASSIUM SERUM 4.4 MMOL/L (3.5-5.1); SODIUM LEVEL 134 MMOL/L (136-145)
[2022-07-09] MEDS: MIRTAZAPINE 15 MG TAB PO SCH (21:02)
[2022-07-09] MEDS: RAMELTEON 8 MG TAB (ROZEREM) PO PRN (21:03)
[2022-07-09 22:00] VITALS: BP 111/78
[2022-07-10 05:41] LABS: HEMATOCRIT 26.2 % (42.0-52.0); HEMOGLOBIN 8.5 g/dl (13.5-17.5); MEAN CORPUSCULAR HEMOGLOBIN 34.6 pg (27.0-33.0); MEAN CORPUSCULAR HGB CONC 32.4 g/dl (32.0-36.5); MEAN CORPUSCULAR VOLUME 106.5 fl (80.0-96.0); PLATELET COUNT, AUTOMATED 270 10^3/uL (150-450); RED BLOOD COUNT 2.46 10^6/uL (4.30-6.10); WHITE BLOOD COUNT 4.4 10^3/uL (4.0-10.0)
[2022-07-10 06:00] VITALS: BP 109/75
[2022-07-10 06:07] LABS: BLOOD UREA NITROGEN 23 MG/DL (9-23); CALCIUM LEVEL 8.9 MG/DL (8.5-10.1); CARBON DIOXIDE LEVEL 28 MMOL/L (20-31); CHLORIDE LEVEL 102 MMOL/L (98-107); CREATININE FOR GFR 0.34 MG/DL (0.70-1.30); GLOMERULAR FILTRATION RATE > 60.0 (>56); GLUCOSE, FASTING 121 MG/DL (60-100); MAGNESIUM LEVEL 1.6 MG/DL (1.8-2.4); PHOSPHORUS LEVEL 5.1 MG/DL (2.5-4.9); POTASSIUM SERUM 4.2 MMOL/L (3.5-5.1); SODIUM LEVEL 136 MMOL/L (136-145)
[2022-07-10] MEDS: THIAMINE 100 MG TAB PO SCH (09:29)
[2022-07-10] MEDS: LACTOBACILLUS ACIDOPHILUS CAP (BACID) PO SCH (09:29)
[2022-07-10] MEDS: MAGNESIUM GLUCONATE 500 MG TAB PEG SCH ×4 (09:29→20:57)
[2022-07-10] MEDS: FOLIC ACID 1MG TAB PO SCH (09:29)
[2022-07-10] MEDS: FAMOTIDINE 20 MG TAB PO SCH (09:29)
[2022-07-10] MEDS: DICLOFENAC EPOLAMINE 1.3% PATCH TOP SCH ×2 (09:30→20:56)
[2022-07-10] MEDS: FLUTICASONE PROP 0.05% NASAL SPRAY 16 GM (FLONASE) NARES SCH ×2 (09:30→20:56)
[2022-07-10 14:00] VITALS: BP 109/76
[2022-07-10] MEDS: RIVAROXABAN 20MG TAB (XARELTO) PO SCH (17:26)
[2022-07-10] MEDS: MIRTAZAPINE 15 MG TAB PO SCH (20:57)
[2022-07-10] MEDS: RAMELTEON 8 MG TAB (ROZEREM) PO PRN (20:57)
[2022-07-10 22:04] VITALS: BP 107/76
[2022-07-11 05:25] VITALS: BP 107/75
[2022-07-11 06:02] LABS: BASO # 0.1 10^3/uL (0.0-0.2); BASO % 1.2 % (0.0-1.0); EOS # 0.2 10^3/uL (0.0-0.5); EOS % 3.9 % (0.0-3.0); HEMATOCRIT 26.3 % (42.0-52.0); HEMOGLOBIN 8.7 g/dl (13.5-17.5); LYMPH # 0.7 10^3/uL (1.5-5.0); LYMPH % 13.3 % (24.0-44.0); MEAN CORPUSCULAR HEMOGLOBIN 35.4 pg (27.0-33.0); MEAN CORPUSCULAR HGB CONC 33.1 g/dl (32.0-36.5); MEAN CORPUSCULAR VOLUME 106.9 fl (80.0-96.0); MONO # 0.9 10^3/uL (0.0-0.8); MONO % 16.6 % (2.0-8.0); NEUTROPHILS # 3.2 10^3/uL (1.5-8.5); NEUTROPHILS % 62.1 % (36.0-66.0); PLATELET COUNT, AUTOMATED 264 10^3/uL (150-450); RED BLOOD COUNT 2.46 10^6/uL (4.30-6.10); WHITE BLOOD COUNT 5.2 10^3/uL (4.0-10.0)
[2022-07-11 06:27] LABS: ALBUMIN 2.4 G/DL (3.2-5.2); ALKALINE PHOSPHATASE 55 U/L (46-116); ALT/SGPT 35 U/L (7.0-40); AST/SGOT 38 U/L (<34); BILIRUBIN,TOTAL 0.4 MG/DL (0.3-1.2); BLOOD UREA NITROGEN 25 MG/DL (9-23); CALCIUM LEVEL 8.8 MG/DL (8.5-10.1); CARBON DIOXIDE LEVEL 28 MMOL/L (20-31); CHLORIDE LEVEL 100 MMOL/L (98-107); CREATININE FOR GFR 0.33 MG/DL (0.70-1.30); GLOMERULAR FILTRATION RATE > 60.0 (>56); GLUCOSE, FASTING 107 MG/DL (60-100); MAGNESIUM LEVEL 1.4 MG/DL (1.8-2.4); PHOSPHORUS LEVEL 5.1 MG/DL (2.5-4.9); POTASSIUM SERUM 4.3 MMOL/L (3.5-5.1); SODIUM LEVEL 135 MMOL/L (136-145); TOTAL PROTEIN 5.7 G/DL (5.7-8.2)
[2022-07-11] MEDS: MAGNESIUM GLUCONATE 500 MG TAB PEG SCH ×4 (08:40→20:33)
[2022-07-11] MEDS: MAG SULF 1GM/100ML (MAG RUN) 1 GM in IV 1 EA IV SCH ×2 (08:40→10:03)
[2022-07-11] MEDS: FOLIC ACID 1MG TAB PO SCH (08:41)
[2022-07-11] MEDS: DICLOFENAC EPOLAMINE 1.3% PATCH TOP SCH ×2 (08:41→20:32)
[2022-07-11] MEDS: FAMOTIDINE 20 MG TAB PO SCH (08:41)
[2022-07-11] MEDS: THIAMINE 100 MG TAB PO SCH (08:41)
[2022-07-11] MEDS: LACTOBACILLUS ACIDOPHILUS CAP (BACID) PO SCH (08:41)
[2022-07-11] MEDS: VITAMIN A & D OINTMENT 42.5GM TOP PRN ×2 (08:42→20:33)
[2022-07-11] MEDS: FLUTICASONE PROP 0.05% NASAL SPRAY 16 GM (FLONASE) NARES SCH ×2 (08:42→20:33)
[2022-07-11 11:00] VITALS: BP 107/76
[2022-07-11 14:00] VITALS: BP 108/76
[2022-07-11] MEDS: RIVAROXABAN 20MG TAB (XARELTO) PO SCH (18:42)
[2022-07-11 20:16] VITALS: BP 110/78
[2022-07-11] MEDS: RAMELTEON 8 MG TAB (ROZEREM) PO PRN (20:33)
[2022-07-11] MEDS: MIRTAZAPINE 15 MG TAB PO SCH (20:33)
[2022-07-12 05:19] VITALS: BP 101/71
[2022-07-12 07:10] LABS: BLOOD UREA NITROGEN 22 MG/DL (9-23); CALCIUM LEVEL 8.6 MG/DL (8.5-10.1); CARBON DIOXIDE LEVEL 25 MMOL/L (20-31); CHLORIDE LEVEL 104 MMOL/L (98-107); CREATININE FOR GFR 0.34 MG/DL (0.70-1.30); GLOMERULAR FILTRATION RATE > 60.0 (>56); GLUCOSE, FASTING 108 MG/DL (60-100); MAGNESIUM LEVEL 1.5 MG/DL (1.8-2.4); POTASSIUM SERUM 4.4 MMOL/L (3.5-5.1); SODIUM LEVEL 137 MMOL/L (136-145)
[2022-07-12] MEDS: LACTOBACILLUS ACIDOPHILUS CAP (BACID) PO SCH (08:26)
[2022-07-12] MEDS: FOLIC ACID 1MG TAB PO SCH (08:26)
[2022-07-12] MEDS: THIAMINE 100 MG TAB PO SCH (08:26)
[2022-07-12] MEDS: MAGNESIUM GLUCONATE 500 MG TAB PEG SCH ×4 (08:26→20:46)
[2022-07-12] MEDS: FLUTICASONE PROP 0.05% NASAL SPRAY 16 GM (FLONASE) NARES SCH ×2 (08:27→20:46)
[2022-07-12] MEDS: DICLOFENAC EPOLAMINE 1.3% PATCH TOP SCH ×2 (08:27→21:11)
[2022-07-12] MEDS: FAMOTIDINE 20 MG TAB PO SCH (08:27)
[2022-07-12] MEDS: RIVAROXABAN 20MG TAB (XARELTO) PO SCH (18:09)
[2022-07-12] MEDS: MIRTAZAPINE 15 MG TAB PO SCH (20:46)
[2022-07-12] MEDS: RAMELTEON 8 MG TAB (ROZEREM) PO PRN (20:46)
[2022-07-12] MEDS: VITAMIN A & D OINTMENT 42.5GM TOP PRN (21:12)
[2022-07-12 21:20] VITALS: BP 116/79
[2022-07-13 06:17] VITALS: BP 112/77
[2022-07-13 06:38] LABS: HEMATOCRIT 25.8 % (42.0-52.0); HEMOGLOBIN 8.6 g/dl (13.5-17.5); MEAN CORPUSCULAR HEMOGLOBIN 35.4 pg (27.0-33.0); MEAN CORPUSCULAR HGB CONC 33.3 g/dl (32.0-36.5); MEAN CORPUSCULAR VOLUME 106.2 fl (80.0-96.0); PLATELET COUNT, AUTOMATED 213 10^3/uL (150-450); RED BLOOD COUNT 2.43 10^6/uL (4.30-6.10); WHITE BLOOD COUNT 4.8 10^3/uL (4.0-10.0)
[2022-07-13 07:19] LABS: BLOOD UREA NITROGEN 26 MG/DL (9-23); CALCIUM LEVEL 8.4 MG/DL (8.5-10.1); CARBON DIOXIDE LEVEL 26 MMOL/L (20-31); CHLORIDE LEVEL 103 MMOL/L (98-107); CREATININE FOR GFR 0.36 MG/DL (0.70-1.30); GLOMERULAR FILTRATION RATE > 60.0 (>56); GLUCOSE, FASTING 115 MG/DL (60-100); MAGNESIUM LEVEL 1.4 MG/DL (1.8-2.4); POTASSIUM SERUM 4.4 MMOL/L (3.5-5.1); SODIUM LEVEL 137 MMOL/L (136-145)
[2022-07-13 08:37] VITALS: BP_SYST 11; BP_SYST 110; BP_DIAS 74
[2022-07-13] MEDS ORDERED: MAGNESIUM GLUCONATE 500 MG TAB PEG SCH (09:25)
[2022-07-13] MEDS ORDERED: SENOKOT S TAB PEG PRN (10:10)
[2022-07-13] MEDS ORDERED: SIMETHICONE 80MG CHEW TAB PEG PRN (10:10)
[2022-07-13] MEDS ORDERED: RAMELTEON 8 MG TAB (ROZEREM) PEG PRN (10:10)
[2022-07-13] MEDS: FLUTICASONE PROP 0.05% NASAL SPRAY 16 GM (FLONASE) NARES SCH ×2 (11:42→21:21)
[2022-07-13] MEDS: FOLIC ACID 1MG TAB PEG SCH (11:45)
[2022-07-13] MEDS: LACTOBACILLUS ACIDOPHILUS CAP (BACID) PEG SCH (11:45)
[2022-07-13] MEDS: MAGNESIUM GLUCONATE 500 MG TAB PEG SCH ×4 (11:45→21:22)
[2022-07-13] MEDS: DICLOFENAC EPOLAMINE 1.3% PATCH TOP SCH ×2 (11:48→21:00)
[2022-07-13] MEDS: THIAMINE 100 MG TAB PEG SCH (11:48)
[2022-07-13] MEDS: FAMOTIDINE 20 MG TAB PEG SCH (11:49)
[2022-07-13 14:00] VITALS: BP 99/78
[2022-07-13] MEDS ORDERED: RIVAROXABAN 20MG TAB (XARELTO) PEG SCH (18:00)
[2022-07-13] MEDS ORDERED: MIRTAZAPINE 15 MG TAB PEG SCH (21:00)
[2022-07-13 22:00] VITALS: BP 100/76
[2022-07-14 06:00] VITALS: BP 99/73
[2022-07-14 07:10] LABS: HEMATOCRIT 25.7 % (42.0-52.0); HEMOGLOBIN 8.5 g/dl (13.5-17.5); MEAN CORPUSCULAR HEMOGLOBIN 34.7 pg (27.0-33.0); MEAN CORPUSCULAR HGB CONC 33.1 g/dl (32.0-36.5); MEAN CORPUSCULAR VOLUME 104.9 fl (80.0-96.0); PLATELET COUNT, AUTOMATED 200 10^3/uL (150-450); RED BLOOD COUNT 2.45 10^6/uL (4.30-6.10); WHITE BLOOD COUNT 4.6 10^3/uL (4.0-10.0)
[2022-07-14 07:26] LABS: BLOOD UREA NITROGEN 26 MG/DL (9-23); CALCIUM LEVEL 8.6 MG/DL (8.5-10.1); CARBON DIOXIDE LEVEL 27 MMOL/L (20-31); CHLORIDE LEVEL 103 MMOL/L (98-107); CREATININE FOR GFR 0.34 MG/DL (0.70-1.30); GLOMERULAR FILTRATION RATE > 60.0 (>56); GLUCOSE, FASTING 101 MG/DL (60-100); MAGNESIUM LEVEL 1.3 MG/DL (1.8-2.4); SODIUM LEVEL 137 MMOL/L (136-145)
[2022-07-14] MEDS ORDERED: MAGNESIUM OXIDE 400MG TAB (MAG-OX) PO ONE (09:10)
[2022-07-14] MEDS: LACTOBACILLUS ACIDOPHILUS CAP (BACID) PEG SCH (09:58)
[2022-07-14] MEDS: MAGNESIUM GLUCONATE 500 MG TAB PEG SCH ×2 (09:58→14:36)
[2022-07-14] MEDS: FAMOTIDINE 20 MG TAB PEG SCH (09:58)
[2022-07-14] MEDS: FOLIC ACID 1MG TAB PEG SCH (09:58)
[2022-07-14] MEDS: DICLOFENAC EPOLAMINE 1.3% PATCH TOP SCH (09:59)
[2022-07-14] MEDS: FLUTICASONE PROP 0.05% NASAL SPRAY 16 GM (FLONASE) NARES SCH (09:59)
[2022-07-14] MEDS: THIAMINE 100 MG TAB PEG SCH (09:59)
[2022-07-14] MEDS ORDERED: RAME8TAB2 PEG (11:51)
[2022-07-14] MEDS ORDERED: SIME80TA16 PEG (11:51)
[2022-07-14] MEDS ORDERED: MAGN50TA PEG (11:51)
[2022-07-14] MEDS ORDERED: FAMO20TA PEG (11:51)
[2022-07-14] MEDS ORDERED: MIRT-10 PEG (11:51)
[2022-07-14] MEDS ORDERED: TORS10TA3 PEG (13:50)
[2022-07-14] MEDS ORDERED: FOLI400T13 PEG (13:50)
[2022-07-14] MEDS ORDERED: CALC1CAP31 PEG (13:50)
[2022-07-14 14:10] VITALS: BP 101/72
[2022-07-14] MEDS ORDERED: VITMTA PEG (14:57)
[2022-07-14] MEDS ORDERED: XARE20TA PEG (14:57)
== END 2022-07-14 15:40 | DRG 425 ==
LOC: M ED 15:01 → M ED INP 17:22 → M ICU 18:27 → M MS5PR 06-30 21:40
PROVIDERS: ADMIT Internal Medicine Pulmonary Disease; ATTEND Internal Medicine
PROC: 02HV33Z Insertion of Infusion Device into Superior Vena Cava, Percutaneous Approach (ICD-10-PCS; 2022-06-21)
PROC: 30233J1 Transfusion of Nonautologous Serum Albumin into Peripheral Vein, Percutaneous Approach (ICD-10-PCS; 2022-06-22)
PROC: 30233N1 Transfusion of Nonautologous Red Blood Cells into Peripheral Vein, Percutaneous Approach (ICD-10-PCS; principal; 2022-06-24)
PROC: 0DH63UZ Insertion of Feeding Device into Stomach, Percutaneous Approach (ICD-10-PCS; 2022-06-26)
DX: E87.1 Hypo-osmolality and hyponatremia (principal); J96.01 Acute respiratory failure with hypoxia; J69.0 Pneumonitis due to inhalation of food and vomit; E43 Unspecified severe protein-calorie malnutrition; J90 Pleural effusion, not elsewhere classified; E87.29 Other acidosis; D69.6 Thrombocytopenia, unspecified; E87.3 Alkalosis; I95.9 Hypotension, unspecified; K22.2 Esophageal obstruction; R13.12 Dysphagia, oropharyngeal phase; E83.42 Hypomagnesemia; E83.51 Hypocalcemia; E87.6 Hypokalemia; Z85.810 Personal history of malignant neoplasm of tongue; Z92.3 Personal history of irradiation; Z92.21 Personal history of antineoplastic chemotherapy; K21.9 Gastro-esophageal reflux disease without esophagitis; I10 Essential (primary) hypertension; K22.89 Other specified disease of esophagus; R62.7 Adult failure to thrive; K44.9 Diaphragmatic hernia without obstruction or gangrene; D53.9 Nutritional anemia, unspecified; K76.0 Fatty (change of) liver, not elsewhere classified; Z88.5 Allergy status to narcotic agent; Z79.899 Other long term (current) drug therapy; Z87.891 Personal history of nicotine dependence; Z20.822 Contact with and (suspected) exposure to COVID-19; Z79.01 Long term (current) use of anticoagulants; Z79.891 Long term (current) use of opiate analgesic; G37.2 Central pontine myelinolysis; G47.00 Insomnia, unspecified; D61.818 Other pancytopenia; E53.8 Deficiency of other specified B group vitamins

== ENCOUNTER → 2022-07-19 | Outpatient (REF) | payer BC, OTHER ==
[~2022-07-19] MED LIST changes: +CALC1CAP31 PEG; +FAMO20TA PEG; +FOLI400T13 PEG; +MAGN400C PO; +MAGN50TA PEG; +MIRT-10 PEG; +MONT10TA97; +RAME8TAB2 PEG; +SIME80TA16 PEG; +TORS10TA3 PEG; +TORS10TA3 PO; +VITMTA PEG; +XARE20TA PEG
[2022-07-19 09:38] LABS: HEMOGLOBIN 8.3 g/dl (13.5-17.5); MEAN CORPUSCULAR HGB CONC 31.9 g/dl (32.0-36.5); MEAN CORPUSCULAR VOLUME 106.6 fl (80.0-96.0); PLATELET COUNT, AUTOMATED 149 10^3/uL (150-450); RED BLOOD COUNT 2.44 10^6/uL (4.30-6.10); WHITE BLOOD COUNT 3.8 10^3/uL (4.0-10.0)
[2022-07-19 10:08] LABS: ALBUMIN 2.7 G/DL (3.2-5.2); ALKALINE PHOSPHATASE 60 U/L (46-116); ALT/SGPT 47 U/L (7.0-40); AST/SGOT 33 U/L (<34); BILIRUBIN,TOTAL 0.4 MG/DL (0.3-1.2); BLOOD UREA NITROGEN 26 MG/DL (9-23); CARBON DIOXIDE LEVEL 27 MMOL/L (20-31); CHLORIDE LEVEL 102 MMOL/L (98-107); CREATININE FOR GFR 0.38 MG/DL (0.70-1.30); GLOMERULAR FILTRATION RATE > 60.0 (>56); GLUCOSE, FASTING 134 MG/DL (60-100); MAGNESIUM LEVEL 1.3 MG/DL (1.8-2.4); PHOSPHORUS LEVEL 4.6 MG/DL (2.5-4.9); SODIUM LEVEL 137 MMOL/L (136-145); TOTAL PROTEIN 5.9 G/DL (5.7-8.2)
== END ==
LOC: SKLAB7 04:57
PROVIDERS: ATTEND Internal Medicine
DX: E87.1 Hypo-osmolality and hyponatremia (principal)

== ENCOUNTER → 2022-07-24 | Outpatient (REF) | payer BC, OTHER ==
[2022-07-24 09:13] LABS: BLOOD UREA NITROGEN 22 MG/DL (9-23); CALCIUM LEVEL 8.6 MG/DL (8.5-10.1); CARBON DIOXIDE LEVEL 28 MMOL/L (20-31); CHLORIDE LEVEL 104 MMOL/L (98-107); CREATININE FOR GFR 0.42 MG/DL (0.70-1.30); GLOMERULAR FILTRATION RATE > 60.0 (>56); GLUCOSE, FASTING 86 MG/DL (60-100); MAGNESIUM LEVEL 1.4 MG/DL (1.8-2.4); SODIUM LEVEL 138 MMOL/L (136-145)
== END ==
LOC: SKLAB7 07:10
PROVIDERS: ATTEND Internal Medicine
DX: E83.42 Hypomagnesemia (principal)

== ENCOUNTER 2022-08-17 10:46 | Emergency (ER) | payer BC, OTHER ==
[~2022-08-17] VITALS: Ht 180.3 cm; Wt 78.2 kg
[2022-08-17] MEDS ORDERED: NS 1,000 ML IV ONE (11:30)
[2022-08-17 11:50] LABS: BASO % 0.5 % (0.0-1.0); EOS # 0.2 10^3/uL (0.0-0.5); EOS % 3.6 % (0.0-3.0); HEMATOCRIT 31.4 % (42.0-52.0); HEMOGLOBIN 10.3 g/dl (13.5-17.5); LYMPH # 0.7 10^3/uL (1.5-5.0); LYMPH % 16.5 % (24.0-44.0); MEAN CORPUSCULAR HEMOGLOBIN 33.9 pg (27.0-33.0); MEAN CORPUSCULAR HGB CONC 32.8 g/dl (32.0-36.5); MEAN CORPUSCULAR VOLUME 103.3 fl (80.0-96.0); MONO # 0.4 10^3/uL (0.0-0.8); MONO % 9.3 % (2.0-8.0); NEUTROPHILS # 2.9 10^3/uL (1.5-8.5); NEUTROPHILS % 69.9 % (36.0-66.0); PLATELET COUNT, AUTOMATED 131 10^3/uL (150-450); RED BLOOD COUNT 3.04 10^6/uL (4.30-6.10); WHITE BLOOD COUNT 4.2 10^3/uL (4.0-10.0)
[2022-08-17 12:01] LABS: INR 1.61; PROTHROMBIN TIME 19.4 SECONDS (12.5-14.5)
[2022-08-17 12:02] LABS: PARTIAL THROMBOPLASTIN TIME 37.4 SECONDS (24.8-34.2)
[2022-08-17 12:14] LABS: ALBUMIN 3.4 G/DL (3.2-5.2); ALKALINE PHOSPHATASE 42 U/L (46-116); ALT/SGPT 23 U/L (7.0-40); AST/SGOT 25 U/L (<34); BILIRUBIN,DIRECT 0.1 MG/DL (<0.4); BILIRUBIN,TOTAL 0.4 MG/DL (0.3-1.2); BLOOD UREA NITROGEN 31 MG/DL (9-23); CALCIUM LEVEL 9.9 MG/DL (8.5-10.1); CARBON DIOXIDE LEVEL 28 MMOL/L (20-31); CHLORIDE LEVEL 103 MMOL/L (98-107); CREATININE FOR GFR 0.57 MG/DL (0.70-1.30); GLOMERULAR FILTRATION RATE > 60.0 (>56); GLUCOSE, FASTING 131 MG/DL (60-100); POTASSIUM SERUM 4.2 MMOL/L (3.5-5.1); SODIUM LEVEL 140 MMOL/L (136-145); TOTAL PROTEIN 6.6 G/DL (5.7-8.2)
[2022-08-17] MEDS ORDERED: MIRA3350 PO (13:16)
[2022-08-17 13:39] VITALS: BP 128/78
== END 2022-08-17 13:40 | disposition home or self-care (01) ==
LOC: M ED 10:46
DX: K57.90 Diverticulosis of intestine, part unspecified, without perforation or abscess without bleeding (principal); K92.2 Gastrointestinal hemorrhage, unspecified; K59.00 Constipation, unspecified; Z85.810 Personal history of malignant neoplasm of tongue; Z93.1 Gastrostomy status; Z88.5 Allergy status to narcotic agent; Z79.810 Long term (current) use of selective estrogen receptor modulators (SERMs); Z79.1 Long term (current) use of non-steroidal anti-inflammatories (NSAID); Z79.899 Other long term (current) drug therapy

== ENCOUNTER → 2023-01-18 | Outpatient (CLI) | payer BC, OTHER ==
[~2023-01-18] MED LIST changes: +MIRA3350 PO
== END ==
LOC: M WHC 09:53
PROVIDERS: ATTEND Surgery
DX: N62 Hypertrophy of breast (principal)
CPT/HCPCS: 76642; 77066; G0279

== ENCOUNTER → 2023-02-07 | Outpatient (CLI) | payer BC, OTHER | LOC: M CARPUL 13:46 | PROVIDERS: ATTEND Internal Medicine Cardiovascular Disease | DX: I10 Essential (primary) hypertension (principal); R60.0 Localized edema ==

== ENCOUNTER → 2023-08-31 | Outpatient (REF) | payer BC, OTHER ==
[2023-08-31 18:10] LABS: IRON (FE) 211 UG/DL (65-175); PERCENT SATURATION 88.7 % (19.7-50.0); TOTAL IRON BINDING CAPACITY 238 UG/DL (250-425)
[2023-08-31 18:17] LABS: VITAMIN B12 LEVEL 809 PG/ML (211-911)
[2023-08-31 18:20] LABS: FOLATE > 24.0 NG/ML (>5.4)
== END ==
LOC: M LAB REF 17:05
PROVIDERS: ATTEND Internal Medicine Nephrology
DX: D53.9 Nutritional anemia, unspecified (principal)

== ENCOUNTER → 2023-10-24 | Outpatient (REF) | payer OTHER, BC ==
[2023-10-24 19:01] LABS: FOLATE > 24.0 NG/ML (>5.4); VITAMIN B12 LEVEL 680 PG/ML (211-911)
== END ==
LOC: M LAB REF 17:15
PROVIDERS: ATTEND Internal Medicine Nephrology
DX: D53.9 Nutritional anemia, unspecified (principal)

== ENCOUNTER → 2023-10-30 | Outpatient (CLI) | payer BC, OTHER ==
[~2023-10-30] MED LIST changes: +FAMO20TA5 PO; +FURO20TA2 PO; +HYDR-3715 PO; +MAGN400T2 PO; +MAGN500T8 PO; +POTA-151 PO; +PREG50CA PO; +RA M500C PO
[2023-10-31 17:08] LABS: CERULOPLASMIN 31.6 mg/dL (16.0-31.0)
== END ==
LOC: M WUC 10:52
PROVIDERS: ATTEND Internal Medicine Nephrology
DX: D53.9 Nutritional anemia, unspecified (principal)

== ENCOUNTER 2023-11-02 20:30 | Observation (INO) | payer BC ==
[~2023-11-02] VITALS: Ht 180.3 cm; Wt 147.8 kg
[~2023-11-02 20:30] MED LIST changes: -FAMO20TA5 PO; -FURO20TA2 PO; -HYDR-3715 PO; -MAGN400T2 PO; -MAGN500T8 PO; -POTA-151 PO; -PREG50CA PO; -RA M500C PO
[2023-11-02 23:32] LABS: C REACTIVE PROTEIN QUANTITATIV < 0.40 MG/DL (<1.0)
[2023-11-02 23:40] LABS: BLOOD UREA NITROGEN 6 MG/DL (9-23); CALCIUM LEVEL 8.1 MG/DL (8.5-10.1); CARBON DIOXIDE LEVEL 34 MMOL/L (20-31); CHLORIDE LEVEL 86 MMOL/L (98-107); CREATININE FOR GFR 0.53 MG/DL (0.70-1.30); GLOMERULAR FILTRATION RATE > 60.0 (>56); GLUCOSE, FASTING 108 MG/DL (60-100); POTASSIUM SERUM 2.1 MMOL/L (3.5-5.1); SODIUM LEVEL 129 MMOL/L (136-145)
[2023-11-03 00:02] LABS: BASO % 0.8 % (0.0-1.0); EOS % 0.5 % (0.0-3.0); HEMOGLOBIN 14.3 g/dl (13.5-17.5); LYMPH # 1.1 10^3/uL (1.5-5.0); LYMPH % 28.3 % (24.0-44.0); MEAN CORPUSCULAR HEMOGLOBIN 40.2 pg (27.0-33.0); MEAN CORPUSCULAR VOLUME 109.6 fl (80.0-96.0); MONO # 0.7 10^3/uL (0.0-0.8); MONO % 18.6 % (2.0-8.0); NEUTROPHILS % 51.5 % (36.0-66.0); PLATELET COUNT, AUTOMATED 109 10^3/uL (150-450); RED BLOOD COUNT 3.56 10^6/uL (4.30-6.10); WHITE BLOOD COUNT 3.8 10^3/uL (4.0-10.0)
[2023-11-03 00:10] LABS: ERYTHROCYTE SEDIMENTATION RATE 3 mm/hr (0-20)
[2023-11-03 00:21] LABS: MEAN CORPUSCULAR HGB CONC 36.7 g/dl (32.0-36.5)
[2023-11-03 01:16] LABS: MAGNESIUM LEVEL 1.5 MG/DL (1.8-2.4)
[2023-11-03] MEDS ORDERED: MONT10TA97 PO (01:54)
[2023-11-03] MEDS ORDERED: RA M500C PO (01:54)
[2023-11-03] MEDS ORDERED: FURO20TA2 PO (01:54)
[2023-11-03] MEDS ORDERED: FAMO20TA5 PO (01:54)
[2023-11-03] MEDS ORDERED: MAGN500T8 PO (01:54)
[2023-11-03] MEDS ORDERED: POTA-151 PO (01:54)
[2023-11-03] MEDS ORDERED: HOME MED LIST COMPLETE! XX SCH (02:05)
[2023-11-03] MEDS: POTASSIUM CHLORIDE 10% LIQ 20MEQ/15ML UDC PO ONE ×2 (02:09→03:18)
[2023-11-03] MEDS: NS 1,000 ML IV SCH (03:05)
[2023-11-03] MEDS: KCL 10MEQ/100ML SWI (KRUN) 10 MEQ in IV 1 EA IV ONE ×3 (03:15→05:15)
[2023-11-03] MEDS: MAG SULF 1GM/100ML (MAG RUN) 1 GM in IV 1 EA IV ONE ×2 (05:05→06:03)
[2023-11-03] MEDS: KETOROLAC 30 MG/ML 1ML VIAL IV ONE (06:36)
[2023-11-03 06:41] LABS: ALBUMIN 2.8 G/DL (3.2-5.2); BLOOD UREA NITROGEN 7 MG/DL (9-23); CARBON DIOXIDE LEVEL 32 MMOL/L (20-31); CHLORIDE LEVEL 88 MMOL/L (98-107); CREATININE FOR GFR 0.54 MG/DL (0.70-1.30); GLOMERULAR FILTRATION RATE > 60.0 (>56); GLUCOSE, FASTING 103 MG/DL (60-100); POTASSIUM SERUM 2.5 MMOL/L (3.5-5.1); SODIUM LEVEL 129 MMOL/L (136-145)
[2023-11-03] MEDS: CALCIUM GLUCONATE 1,000 MG in D5W MINI-BAG PLUS 100 ML IV ONE (08:45)
[2023-11-03] MEDS: POTASSIUM CHLORIDE 10MEQ SR TABLET PO SCH (08:45)
[2023-11-03] MEDS: MONTELUKAST 10 MG TAB PO SCH (08:46)
[2023-11-03] MEDS: RIVAROXABAN 20MG TAB (XARELTO) PO SCH (08:46)
[2023-11-03] MEDS: FAMOTIDINE 20 MG TAB PO SCH (08:46)
[2023-11-03] MEDS: MAGNESIUM OXIDE 400MG TAB (MAG-OX) PO SCH (08:46)
[2023-11-03] MEDS ORDERED: MAGNESIUM GLUCONATE 500 MG TAB PO SCH (09:00)
[2023-11-03] MEDS ORDERED: FUROSEMIDE 20 MG TAB PO SCH (09:00)
[2023-11-03] MEDS: KCL 40MEQ in NS 1000ML 1,000 ML IV SCH (10:16)
[2023-11-03] MEDS: MAG SULF 1GM/100ML (MAG RUN) 1 GM in IV 1 EA IV SCH (10:16)
[2023-11-03 11:45] VITALS: BP 105/82; TEMP 97.1; O2SAT 95
[2023-11-03] MEDS: NORCO, ANEXSIA 5/325MG TABLET (HYDROcodone/ACETAMINOPHEN) PO PRN (13:59)
[2023-11-03] MEDS: PREGABALIN 25 MG CAP (LYRICA) PO SCH (13:59)
[2023-11-03 14:03] LABS: BASO % 0.6 % (0.0-1.0); EOS % 0.6 % (0.0-3.0); HEMATOCRIT 35.3 % (42.0-52.0); HEMOGLOBIN 13.1 g/dl (13.5-17.5); LYMPH # 0.8 10^3/uL (1.5-5.0); LYMPH % 23.3 % (24.0-44.0); MEAN CORPUSCULAR HEMOGLOBIN 40.9 pg (27.0-33.0); MEAN CORPUSCULAR VOLUME 110.3 fl (80.0-96.0); MONO # 0.6 10^3/uL (0.0-0.8); MONO % 18.6 % (2.0-8.0); NEUTROPHILS % 56.6 % (36.0-66.0); WHITE BLOOD COUNT 3.4 10^3/uL (4.0-10.0)
[2023-11-03 14:26] LABS: MEAN CORPUSCULAR HGB CONC 37.1 g/dl (32.0-36.5); PLATELET COUNT, AUTOMATED 89 10^3/uL (150-450)
[2023-11-03 14:39] LABS: ALBUMIN 2.4 G/DL (3.2-5.2); ALKALINE PHOSPHATASE 86 U/L (46-116); ALT/SGPT 24 U/L (7.0-40); AST/SGOT 47 U/L (<34); BLOOD UREA NITROGEN 7 MG/DL (9-23); CALCIUM LEVEL 8.1 MG/DL (8.5-10.1); CARBON DIOXIDE LEVEL 33 MMOL/L (20-31); CHLORIDE LEVEL 93 MMOL/L (98-107); CREATININE FOR GFR 0.55 MG/DL (0.70-1.30); GLOMERULAR FILTRATION RATE > 60.0 (>56); GLUCOSE, FASTING 113 MG/DL (60-100); MAGNESIUM LEVEL 2.2 MG/DL (1.8-2.4); SODIUM LEVEL 131 MMOL/L (136-145); TOTAL PROTEIN 5.3 G/DL (5.7-8.2)
[2023-11-03 15:54] VITALS: BP 122/87; TEMP 97; O2SAT 96
[2023-11-03] MEDS: POTASSIUM CHLORIDE 10MEQ SR TABLET PO ONE (17:04)
[2023-11-03 19:39] VITALS: BP 117/79; TEMP 97.3; O2SAT 95
[2023-11-03] MEDS ORDERED: POTASSIUM CHLORIDE 10MEQ SR TABLET PO SCH (21:00)
[2023-11-04 04:42] VITALS: BP 100/78; TEMP 97; O2SAT 99
[2023-11-04 06:26] LABS: EOS % 2.1 % (0.0-3.0); HEMATOCRIT 31.6 % (42.0-52.0); HEMOGLOBIN 11.5 g/dl (13.5-17.5); LYMPH # 0.7 10^3/uL (1.5-5.0); LYMPH % 38.7 % (24.0-44.0); MEAN CORPUSCULAR HEMOGLOBIN 41.4 pg (27.0-33.0); MEAN CORPUSCULAR HGB CONC 36.4 g/dl (32.0-36.5); MEAN CORPUSCULAR VOLUME 113.7 fl (80.0-96.0); MONO # 0.3 10^3/uL (0.0-0.8); MONO % 17.3 % (2.0-8.0); RED BLOOD COUNT 2.78 10^6/uL (4.30-6.10)
[2023-11-04 06:53] LABS: NEUTROPHILS # 0.8 10^3/uL (1.5-8.5)
[2023-11-04 06:54] LABS: BLOOD UREA NITROGEN < 5 MG/DL (9-23); CALCIUM LEVEL 7.4 MG/DL (8.5-10.1); CARBON DIOXIDE LEVEL 32 MMOL/L (20-31); CHLORIDE LEVEL 101 MMOL/L (98-107); CREATININE FOR GFR 0.54 MG/DL (0.70-1.30); GLOMERULAR FILTRATION RATE > 60.0 (>56); GLUCOSE, FASTING 84 MG/DL (60-100); PLATELET COUNT, AUTOMATED 69 10^3/uL (150-450); POTASSIUM SERUM 4.2 MMOL/L (3.5-5.1); SODIUM LEVEL 134 MMOL/L (136-145); WHITE BLOOD COUNT 1.9 10^3/uL (4.0-10.0)
[2023-11-04 07:52] VITALS: BP 114/82; TEMP 97.4; O2SAT 99
[2023-11-04] MEDS: POTASSIUM CHLORIDE 10MEQ SR TABLET PO SCH (09:21)
[2023-11-04 09:53] LABS: MAGNESIUM LEVEL 1.7 MG/DL (1.8-2.4)
[2023-11-04] MEDS: MAG SULF 1GM/100ML (MAG RUN) 1 GM in IV 1 EA IV SCH (10:28)
[2023-11-04 15:48] VITALS: BP 115/83; TEMP 96.9; O2SAT 96
[2023-11-04 16:48] LABS: BLOOD UREA NITROGEN 5 MG/DL (9-23); CALCIUM LEVEL 7.4 MG/DL (8.5-10.1); CARBON DIOXIDE LEVEL 31 MMOL/L (20-31); CHLORIDE LEVEL 98 MMOL/L (98-107); CREATININE FOR GFR 0.53 MG/DL (0.70-1.30); GLOMERULAR FILTRATION RATE > 60.0 (>56); GLUCOSE, FASTING 94 MG/DL (60-100); POTASSIUM SERUM 4.1 MMOL/L (3.5-5.1); SODIUM LEVEL 132 MMOL/L (136-145)
[2023-11-04 19:00] VITALS: BP 106/79; TEMP 97.2; O2SAT 98
[2023-11-04] MEDS: PREGABALIN 50 MG CAP (LYRICA) PO SCH (20:00)
[2023-11-04 21:52] VITALS: BP 98/66; TEMP 97.7; O2SAT 98
[2023-11-05 05:14] VITALS: BP 118/78; TEMP 98.4; O2SAT 100
[2023-11-05 06:49] LABS: BASO % 0.5 % (0.0-1.0); EOS # 0.1 10^3/uL (0.0-0.5); HEMATOCRIT 29.4 % (42.0-52.0); HEMOGLOBIN 10.5 g/dl (13.5-17.5); LYMPH # 0.7 10^3/uL (1.5-5.0); LYMPH % 34.3 % (24.0-44.0); MEAN CORPUSCULAR HEMOGLOBIN 40.9 pg (27.0-33.0); MEAN CORPUSCULAR HGB CONC 35.7 g/dl (32.0-36.5); MONO # 0.4 10^3/uL (0.0-0.8); MONO % 17.9 % (2.0-8.0); NEUTROPHILS % 44.3 % (36.0-66.0); RED BLOOD COUNT 2.57 10^6/uL (4.30-6.10)
[2023-11-05 06:55] LABS: MEAN CORPUSCULAR VOLUME 114.4 fl (80.0-96.0); NEUTROPHILS # 0.9 10^3/uL (1.5-8.5)
[2023-11-05 06:56] LABS: PLATELET COUNT, AUTOMATED 71 10^3/uL (150-450)
[2023-11-05 07:11] LABS: BLOOD UREA NITROGEN 6 MG/DL (9-23); CALCIUM LEVEL 7.5 MG/DL (8.5-10.1); CARBON DIOXIDE LEVEL 30 MMOL/L (20-31); CHLORIDE LEVEL 101 MMOL/L (98-107); CREATININE FOR GFR 0.61 MG/DL (0.70-1.30); GLOMERULAR FILTRATION RATE > 60.0 (>56); GLUCOSE, FASTING 88 MG/DL (60-100); MAGNESIUM LEVEL 1.8 MG/DL (1.8-2.4); POTASSIUM SERUM 4.1 MMOL/L (3.5-5.1); SODIUM LEVEL 133 MMOL/L (136-145)
[2023-11-05 07:49] LABS: PLATELET ESTIMATE DECREASED (NORMAL)
[2023-11-05] MEDS: CALCITRIOL 0.25 MCG CAP (S0169) PO SCH (08:05)
[2023-11-05] MEDS ORDERED: HYDR-3715 PO (09:53)
[2023-11-05] MEDS ORDERED: POTA-151 PO (09:53)
[2023-11-05] MEDS ORDERED: PREG50CA PO (09:53)
[2023-11-05] MEDS ORDERED: MAGN400T2 PO (09:53)
== END 2023-11-05 11:55 | disposition home or self-care (01) ==
LOC: M ED 20:30 → M ED INP 20:31 → UNDOADMOB 11-03 04:57 → M ED INP 11-03 04:57 → M PCU 11-03 11:42 → M MSPAV 11-04 21:50 → UNDODISOB 11-05 11:55
PROVIDERS: ADMIT Internal Medicine; ATTEND Internal Medicine
DX: E88.89 Other specified metabolic disorders (principal); G62.9 Polyneuropathy, unspecified; E87.6 Hypokalemia; D61.818 Other pancytopenia; I10 Essential (primary) hypertension; K57.92 Diverticulitis of intestine, part unspecified, without perforation or abscess without bleeding; K21.9 Gastro-esophageal reflux disease without esophagitis; Z79.01 Long term (current) use of anticoagulants; Z87.19 Personal history of other diseases of the digestive system; Z85.810 Personal history of malignant neoplasm of tongue; Z92.21 Personal history of antineoplastic chemotherapy; Z92.3 Personal history of irradiation; Z86.73 Personal history of transient ischemic attack (TIA), and cerebral infarction without residual deficits; Z87.891 Personal history of nicotine dependence; Z88.5 Allergy status to narcotic agent; Z79.899 Other long term (current) drug therapy
CPT/HCPCS: 36415; 80047; 80048; 80053; 82040; 83735; 83880; 85025; 85049; 85055; 85652; 86140; 87040; 93005; 93970; 96361; 96374; 96375; 97161; 97530; 99285; J0612; J1885; J3475

== ENCOUNTER → 2023-11-09 | Outpatient (REF) | payer OTHER ==
[~2023-11-09] MED LIST changes: +FAMO20TA5 PO; +FURO20TA2 PO; +HYDR-3715 PO; +MAGN400T2 PO; +MAGN500T8 PO; +POTA-151 PO; +PREG50CA PO; +RA M500C PO
[2023-11-14 01:08] LABS: COPPER, RBC <0.43 ug/mL (0.50-1.00)
== END ==
LOC: M LAB REF 16:53
PROVIDERS: ATTEND Internal Medicine Nephrology
DX: D53.9 Nutritional anemia, unspecified (principal)

== ENCOUNTER → 2023-11-26 | Outpatient (CLI) | payer OTHER ==
[2023-11-26 12:09] LABS: RHEUMATOID FACTOR QUANT 6.8 IU/ML (<14)
[2023-11-26 12:12] LABS: FREE T4 0.98 NG/DL (0.89-1.76); THYROID STIMULATING HORMONE 12.903 uIU/ML (0.55-4.78)
[2023-11-26 12:23] LABS: HEMOGLOBIN A1c 4.2 % (4.0-6.0)
[2023-11-27 06:34] LABS: T P ELECTROPHORESIS SO 5.7 g/dL (6.1-8.1)
[2023-11-27 13:12] LABS: SSA SJOGRENS A <1.0 NEG AI (<1.0 NEG); SSB SJOGRENS B <1.0 NEG AI (<1.0 NEG)
[2023-11-27 13:43] LABS: ANA SCREEN, IFA NEGATIVE (NEGATIVE)
[2023-11-27 14:43] LABS: ALBUMIN SPEP 3.2 g/dL (3.8-4.8); ALPHA-1-GLOBULINS SO 0.3 g/dL (0.2-0.3); ALPHA-2-GLOBULINS SO 0.5 g/dL (0.5-0.9); BETA 2 GLOBULIN 0.3 g/dL (0.2-0.5); BETA-GLOBULIN SO 0.4 g/dL (0.4-0.6)
== END ==
LOC: M WUC 10:02
PROVIDERS: ATTEND Psychiatry & Neurology Neurology
DX: E11.42 Type 2 diabetes mellitus with diabetic polyneuropathy (principal); E07.9 Disorder of thyroid, unspecified; M35.00 Sjogren syndrome, unspecified

== ENCOUNTER 2024-01-24 10:26 | Day surgery (SDC) | payer BC ==
[~2024-01-24] VITALS: Ht 180.3 cm; Wt 71.0 kg
[~2024-01-24 10:26] MED LIST changes: +BUME1TAB3 PO; +FAMO1TAB11 PO; +HYDR-4429; +LEVO50TA5 PO; +POTA10CA70 PO; +PREG50CA3 PO
[2024-01-24] MEDS: NS 1,000 ML IV ONE (11:27)
[2024-01-24] MEDS ORDERED: fentaNYL 100 MCG/2 ML INJECTION As Ordered ONE (13:25)
[2024-01-24] MEDS ORDERED: propofoL 200 MG/20 ML VIAL As Ordered ONE (13:25)
[2024-01-24] MEDS ORDERED: LIDOCAINE 2% 100MG/5ML SDV (FOR ANES.) As Ordered ONE (13:25)
[2024-01-24 13:31] VITALS: TEMP 97.7
[2024-01-24 13:46] VITALS: BP 121/82; O2SAT 98
== END 2024-01-24 13:58 | disposition home or self-care (01) ==
LOC: M OPP 10:26
PROVIDERS: ATTEND Internal Medicine Gastroenterology
DX: K22.2 Esophageal obstruction (principal); E03.9 Hypothyroidism, unspecified; R13.0 Aphagia; Z79.01 Long term (current) use of anticoagulants; Z79.51 Long term (current) use of inhaled steroids; Z79.633 Long term (current) use of mitotic inhibitor; Z79.891 Long term (current) use of opiate analgesic; Z79.899 Other long term (current) drug therapy; Z88.5 Allergy status to narcotic agent
CPT/HCPCS: 43235; J3010

== ENCOUNTER 2024-02-04 08:47 | Inpatient (IN) | payer BC ==
[~2024-02-04] VITALS: Ht 180.3 cm; Wt 68.6 kg
[~2024-02-04 08:47] MED LIST changes: -HYDR-4429; +HYDR-4429 PO
[2024-02-04 10:46] LABS: BASO % 0.4 % (0.0-1.0); EOS % 0.4 % (0.0-3.0); HEMATOCRIT 35.8 % (42.0-52.0); HEMOGLOBIN 12.9 g/dl (13.5-17.5); LYMPH # 0.5 10^3/uL (1.5-5.0); LYMPH % 18.6 % (24.0-44.0); MEAN CORPUSCULAR HEMOGLOBIN 38.3 pg (27.0-33.0); MEAN CORPUSCULAR VOLUME 106.2 fl (80.0-96.0); MONO # 0.4 10^3/uL (0.0-0.8); MONO % 12.9 % (2.0-8.0); NEUTROPHILS # 1.9 10^3/uL (1.5-8.5); RED BLOOD COUNT 3.37 10^6/uL (4.30-6.10); WHITE BLOOD COUNT 2.8 10^3/uL (4.0-10.0)
[2024-02-04] MEDS: ONDANSETRON 4MG 2ML VIAL IV ONE (10:48)
[2024-02-04] MEDS: NS 1,000 ML IV SCH (10:49)
[2024-02-04] MEDS: MORPHINE 4 MG/ML 1ML VIAL IV PRN (10:49)
[2024-02-04 10:55] LABS: PLATELET COUNT, AUTOMATED 55 10^3/uL (150-450)
[2024-02-04 11:12] LABS: ALKALINE PHOSPHATASE 83 U/L (46-116); ALT/SGPT 43 U/L (7.0-40); AST/SGOT 111 U/L (<34); BILIRUBIN,TOTAL 1.6 MG/DL (0.3-1.2); BLOOD UREA NITROGEN 13 MG/DL (9-23); CALCIUM LEVEL 8.3 MG/DL (8.5-10.1); CARBON DIOXIDE LEVEL 33 MMOL/L (20-31); CHLORIDE LEVEL 95 MMOL/L (98-107); CREATININE FOR GFR 0.57 MG/DL (0.70-1.30); GLOMERULAR FILTRATION RATE > 60.0 (>56); GLUCOSE, FASTING 113 MG/DL (60-100); MAGNESIUM LEVEL 1.3 MG/DL (1.8-2.4); SODIUM LEVEL 132 MMOL/L (136-145); TOTAL PROTEIN 6.2 G/DL (5.7-8.2)
[2024-02-04 11:42] LABS: CPK CREATINE PHOSPHOKINASE 250 U/L (46-171)
[2024-02-04] MEDS: MAG SULF 1GM/100ML (MAG RUN) 1 GM in IV 1 EA IV ONE (13:46)
[2024-02-04] MEDS ORDERED: MAGN400T33 PO (13:51)
[2024-02-04] MEDS ORDERED: RAME8TAB2 PO (13:51)
[2024-02-04] MEDS ORDERED: MULT-90 PO (13:51)
[2024-02-04] MEDS ORDERED: HOME MED LIST COMPLETE! XX SCH (13:55)
[2024-02-04] MEDS ORDERED: MOM 30ML SUSPENSION UDC PO PRN (15:25)
[2024-02-04] MEDS: LR 1,000 ML IV SCH (16:07)
[2024-02-04 19:07] LABS: PERCENT SATURATION 14.8 % (19.7-50.0)
[2024-02-04 19:10] LABS: FERRITIN 708.6 NG/ML (10.5-307.3); FOLATE 22.67 NG/ML (>5.4)
[2024-02-04 20:50] VITALS: BP 133/66; TEMP 97.7; O2SAT 100
[2024-02-04] MEDS: ACETAMINOPHEN TAB 650MG DOSE (2X325MG) PO PRN (23:05)
[2024-02-05 03:45] VITALS: BP 128/68; TEMP 97.2; O2SAT 97
[2024-02-05] MEDS: NORCO, ANEXSIA 5/325MG TABLET (HYDROcodone/ACETAMINOPHEN) PO PRN (05:03)
[2024-02-05 06:09] LABS: BASO % 0.4 % (0.0-1.0); EOS % 1.8 % (0.0-3.0); HEMATOCRIT 31.7 % (42.0-52.0); HEMOGLOBIN 11.2 g/dl (13.5-17.5); LYMPH # 0.6 10^3/uL (1.5-5.0); LYMPH % 26.4 % (24.0-44.0); MEAN CORPUSCULAR HEMOGLOBIN 38.2 pg (27.0-33.0); MEAN CORPUSCULAR HGB CONC 35.3 g/dl (32.0-36.5); MEAN CORPUSCULAR VOLUME 108.2 fl (80.0-96.0); MONO # 0.4 10^3/uL (0.0-0.8); MONO % 15.9 % (2.0-8.0); NEUTROPHILS # 1.2 10^3/uL (1.5-8.5); NEUTROPHILS % 54.6 % (36.0-66.0); RED BLOOD COUNT 2.93 10^6/uL (4.30-6.10); WHITE BLOOD COUNT 2.3 10^3/uL (4.0-10.0)
[2024-02-05 06:10] LABS: PLATELET COUNT, AUTOMATED 56 10^3/uL (150-450)
[2024-02-05 06:44] LABS: ALBUMIN 2.3 G/DL (3.2-5.2); ALKALINE PHOSPHATASE 79 U/L (46-116); ALT/SGPT 29 U/L (7.0-40); AST/SGOT 50 U/L (<34); BILIRUBIN,TOTAL 0.9 MG/DL (0.3-1.2); BLOOD UREA NITROGEN 13 MG/DL (9-23); CALCIUM LEVEL 7.4 MG/DL (8.5-10.1); CARBON DIOXIDE LEVEL 34 MMOL/L (20-31); CHLORIDE LEVEL 98 MMOL/L (98-107); CREATININE FOR GFR 0.54 MG/DL (0.70-1.30); GLOMERULAR FILTRATION RATE > 60.0 (>56); GLUCOSE, FASTING 99 MG/DL (60-100); MAGNESIUM LEVEL 1.4 MG/DL (1.8-2.4); POTASSIUM SERUM 2.5 MMOL/L (3.5-5.1); SODIUM LEVEL 137 MMOL/L (136-145); TOTAL PROTEIN 4.9 G/DL (5.7-8.2)
[2024-02-05] MEDS: KCL 10MEQ/100ML SWI (KRUN) 10 MEQ in IV 1 EA IV SCH (07:05)
[2024-02-05] MEDS: POTASSIUM CHLORIDE 10% LIQ 20MEQ/15ML UDC PO ONE (07:05)
[2024-02-05] MEDS ORDERED: POTASSIUM CHLORIDE 10MEQ SR TABLET PO STA (07:22)
[2024-02-05] MEDS ORDERED: MONTELUKAST 10 MG TAB PO PRN (07:35)
[2024-02-05] MEDS: BUMETANIDE 1 MG TAB PO SCH (08:43)
[2024-02-05] MEDS: PREGABALIN 50 MG CAP (LYRICA) PO SCH (08:43)
[2024-02-05] MEDS: POTASSIUM CHLORIDE 10MEQ SR TABLET PO ONE (08:43)
[2024-02-05] MEDS: MAGNESIUM OXIDE 400MG TAB (MAG-OX) PO SCH (08:43)
[2024-02-05] MEDS: LEVOTHYROXINE 50MCG TABLET (0.05MG) PO SCH (08:46)
[2024-02-05] MEDS: MAG SULF 1GM/100ML (MAG RUN) 1 GM in IV 1 EA IV SCH (10:17)
[2024-02-05 10:55] LABS: POTASSIUM SERUM 3.7 MMOL/L (3.5-5.1)
[2024-02-05] MEDS: ONDANSETRON 4MG 2ML VIAL IV PRN (11:40)
[2024-02-05 12:00] VITALS: BP 117/76; TEMP 97.7; O2SAT 100
[2024-02-05 12:11] LABS: THYROID STIMULATING HORMONE 14.838 uIU/ML (0.55-4.78)
[2024-02-05 14:34] LABS: MAGNESIUM LEVEL 1.8 MG/DL (1.8-2.4); POTASSIUM SERUM 3.1 MMOL/L (3.5-5.1)
[2024-02-05 14:41] LABS: THYROXINE (T4) 10.7 UG/DL (4.5-10.9)
[2024-02-05 14:42] LABS: FREE T4 1.35 NG/DL (0.89-1.76)
[2024-02-05 14:43] LABS: TOTAL T3 112.1 NG/DL (60.0-181.0)
[2024-02-05] MEDS: POTASSIUM CHLORIDE 10MEQ SR TABLET PO SCH (16:56)
[2024-02-05] MEDS: RIVAROXABAN 20MG TAB (XARELTO) PO SCH (16:56)
[2024-02-05 19:58] VITALS: BP 121/81; TEMP 97.7; O2SAT 96
[2024-02-05 21:15] LABS: BLOOD UREA NITROGEN 10 MG/DL (9-23); CALCIUM LEVEL 7.8 MG/DL (8.5-10.1); CARBON DIOXIDE LEVEL 34 MMOL/L (20-31); CHLORIDE LEVEL 95 MMOL/L (98-107); CREATININE FOR GFR 0.58 MG/DL (0.70-1.30); GLOMERULAR FILTRATION RATE > 60.0 (>56); GLUCOSE, FASTING 123 MG/DL (60-100); POTASSIUM SERUM 3.8 MMOL/L (3.5-5.1); SODIUM LEVEL 135 MMOL/L (136-145)
[2024-02-05] MEDS: RAMELTEON 8 MG TAB (ROZEREM) PO PRN (22:03)
[2024-02-06 04:00] VITALS: BP 105/71; TEMP 97.5; O2SAT 96
[2024-02-06 05:53] LABS: HEMATOCRIT 30.3 % (42.0-52.0); HEMOGLOBIN 10.7 g/dl (13.5-17.5); MEAN CORPUSCULAR HEMOGLOBIN 38.5 pg (27.0-33.0); MEAN CORPUSCULAR HGB CONC 35.3 g/dl (32.0-36.5); RED BLOOD COUNT 2.78 10^6/uL (4.30-6.10); WHITE BLOOD COUNT 2.7 10^3/uL (4.0-10.0)
[2024-02-06 05:55] LABS: PLATELET COUNT, AUTOMATED 60 10^3/uL (150-450)
[2024-02-06 06:19] LABS: BLOOD UREA NITROGEN 10 MG/DL (9-23); CALCIUM LEVEL 7.5 MG/DL (8.5-10.1); CARBON DIOXIDE LEVEL 33 MMOL/L (20-31); CHLORIDE LEVEL 98 MMOL/L (98-107); CREATININE FOR GFR 0.53 MG/DL (0.70-1.30); GLOMERULAR FILTRATION RATE > 60.0 (>56); GLUCOSE, FASTING 94 MG/DL (60-100); POTASSIUM SERUM 3.6 MMOL/L (3.5-5.1); SODIUM LEVEL 134 MMOL/L (136-145)
[2024-02-06] MEDS: CALCITRIOL 0.25 MCG CAP (S0169) PO SCH (08:50)
[2024-02-06] MEDS ORDERED: POTASSIUM CHLORIDE 10MEQ SR TABLET PO SCH (09:00)
[2024-02-06 10:00] VITALS: BP 135/87; TEMP 98.5
[2024-02-06] MEDS: CALCIUM GLUCONATE 1,000 MG in D5W MINI-BAG PLUS 100 ML IV ONE (10:08)
[2024-02-06 11:10] LABS: D-DIMER QUANT 1.22 ug/mL (<0.5); INR 1.68; PARTIAL THROMBOPLASTIN TIME 33.9 SECONDS (24.8-34.2); PROTHROMBIN TIME 19.2 SECONDS (12.5-14.5)
[2024-02-06 11:22] LABS: PTH INTACT 48.5 PG/ML (18.5-88.0)
[2024-02-06 11:26] LABS: TOTAL 25(OH) VITAMIN D 21.4 NG/ML (20.0-100.0)
[2024-02-06 11:56] LABS: HIV 1&2 SCREEN NEGATIVE (NEGATIVE)
[2024-02-06 12:00] VITALS: BP 122/83; TEMP 97.5; O2SAT 98
[2024-02-06 12:04] LABS: HEPATITIS C VIRUS ABY INDEX 0.05 INDEX (<0.8)
[2024-02-06 20:12] VITALS: BP 98/77; TEMP 97.7; O2SAT 99
[2024-02-07 03:59] VITALS: BP 99/75; TEMP 97.5; O2SAT 96
[2024-02-07 06:24] LABS: HEMATOCRIT 30.5 % (42.0-52.0); HEMOGLOBIN 10.8 g/dl (13.5-17.5); MEAN CORPUSCULAR HEMOGLOBIN 38.8 pg (27.0-33.0); MEAN CORPUSCULAR HGB CONC 35.4 g/dl (32.0-36.5); MEAN CORPUSCULAR VOLUME 109.7 fl (80.0-96.0); RED BLOOD COUNT 2.78 10^6/uL (4.30-6.10); WHITE BLOOD COUNT 2.4 10^3/uL (4.0-10.0)
[2024-02-07 06:25] LABS: PLATELET COUNT, AUTOMATED 57 10^3/uL (150-450)
[2024-02-07 06:50] LABS: BLOOD UREA NITROGEN 9 MG/DL (9-23); CALCIUM LEVEL 7.5 MG/DL (8.5-10.1); CARBON DIOXIDE LEVEL 29 MMOL/L (20-31); CHLORIDE LEVEL 102 MMOL/L (98-107); CREATININE FOR GFR 0.48 MG/DL (0.70-1.30); GLOMERULAR FILTRATION RATE > 60.0 (>56); GLUCOSE, FASTING 109 MG/DL (60-100); MAGNESIUM LEVEL 1.4 MG/DL (1.8-2.4); POTASSIUM SERUM 4.2 MMOL/L (3.5-5.1); SODIUM LEVEL 133 MMOL/L (136-145)
[2024-02-07 08:26] LABS: BASO % 0.9 % (0.0-1.0); EOS # 0.1 10^3/uL (0.0-0.5); EOS % 3.9 % (0.0-3.0); LYMPH # 0.5 10^3/uL (1.5-5.0); LYMPH % 22.5 % (24.0-44.0); MONO # 0.4 10^3/uL (0.0-0.8); NEUTROPHILS # 1.2 10^3/uL (1.5-8.5); NEUTROPHILS % 53.3 % (36.0-66.0)
[2024-02-07 08:37] LABS: PLATELET ESTIMATE NORMAL (NORMAL)
[2024-02-07] MEDS ORDERED: MAGNESIUM GLUCONATE 500 MG TAB PO SCH (09:00)
[2024-02-07] MEDS: CALCIUM CARBONATE 500 MG CHEW U/D PO SCH (09:20)
[2024-02-07] MEDS: MAG SULF 1GM/100ML (MAG RUN) 1 GM in IV 1 EA IV SCH (09:20)
[2024-02-07 12:00] VITALS: BP 123/82; TEMP 97.5; O2SAT 98
[2024-02-07 12:23] LABS: FREE KAPPA LIGHT CHAINS SERUM 35.2 mg/L (3.3-19.4); KAPPA/LAMBDA RATIO SERUM 1.41 (0.26-1.65)
[2024-02-07] MEDS: LIDOCAINE 5% (LIDODERM) PATCH TD SCH (12:44)
[2024-02-07] MEDS: KETOROLAC 30 MG/ML 1ML VIAL IV SCH (12:45)
[2024-02-07] MEDS: ACETAMINOPHEN 500 MG TAB PO SCH (14:51)
[2024-02-07] MEDS ORDERED: CYCLOBENZAPRINE 10MG TABLET PO SCH (16:00)
[2024-02-07] MEDS ORDERED: PREGABALIN 50 MG CAP (LYRICA) PO SCH (16:00)
[2024-02-07] MEDS: PREGABALIN 75 MG CAP(LYRICA) PO SCH (16:10)
[2024-02-07] MEDS: CYCLOBENZAPRINE 5MG TABLET PO SCH (16:11)
[2024-02-07 19:32] VITALS: BP 96/65; TEMP 97.5; O2SAT 100
[2024-02-07] MEDS: DICLOFENAC EPOLAMINE 1.3% PATCH TOP SCH (21:16)
[2024-02-08 03:31] VITALS: BP 102/68; TEMP 97.7; O2SAT 99
[2024-02-08 05:42] LABS: HEMATOCRIT 30.2 % (42.0-52.0); HEMOGLOBIN 10.6 g/dl (13.5-17.5); MEAN CORPUSCULAR HEMOGLOBIN 38.7 pg (27.0-33.0); MEAN CORPUSCULAR HGB CONC 35.1 g/dl (32.0-36.5); MEAN CORPUSCULAR VOLUME 110.2 fl (80.0-96.0); RED BLOOD COUNT 2.74 10^6/uL (4.30-6.10); WHITE BLOOD COUNT 2.2 10^3/uL (4.0-10.0)
[2024-02-08 05:45] LABS: PLATELET COUNT, AUTOMATED 77 10^3/uL (150-450)
[2024-02-08 06:13] LABS: CALCIUM LEVEL 7.9 MG/DL (8.5-10.1); MAGNESIUM LEVEL 1.9 MG/DL (1.8-2.4)
[2024-02-08 06:16] LABS: ALBUMIN 2.2 G/DL (3.2-5.2); ALKALINE PHOSPHATASE 88 U/L (46-116); ALT/SGPT 27 U/L (7.0-40); AST/SGOT 32 U/L (<34); BILIRUBIN,TOTAL 0.6 MG/DL (0.3-1.2); BLOOD UREA NITROGEN 9 MG/DL (9-23); CALCIUM LEVEL 7.9 MG/DL (8.5-10.1); CARBON DIOXIDE LEVEL 29 MMOL/L (20-31); CHLORIDE LEVEL 101 MMOL/L (98-107); CREATININE FOR GFR 0.51 MG/DL (0.70-1.30); GLOMERULAR FILTRATION RATE > 60.0 (>56); GLUCOSE, FASTING 96 MG/DL (60-100); POTASSIUM SERUM 4.7 MMOL/L (3.5-5.1); SODIUM LEVEL 133 MMOL/L (136-145); TOTAL PROTEIN 4.7 G/DL (5.7-8.2)
[2024-02-08] MEDS: LEVOTHYROXINE 75MCG TABLET (0.075MG) PO SCH (06:53)
[2024-02-08] MEDS ORDERED: SENNA 8.6 MG TAB (SENOKOT) PO PRN (09:20)
[2024-02-08] MEDS ORDERED: DOCUSATE SODIUM 100MG CAPSULE PO PRN (09:20)
[2024-02-08] MEDS ORDERED: MIRALAX *UNIT DOSE* 17GM PACKET PO PRN (09:20)
[2024-02-08 12:00] VITALS: BP 116/81; TEMP 97.3; O2SAT 96
[2024-02-08 20:00] VITALS: BP 91/69; TEMP 97.3; O2SAT 97
[2024-02-08] MEDS: SENOKOT S TAB PO SCH (20:51)
[2024-02-08] MEDS: oxyCODONE 5MG TAB PO SCH (20:55)
[2024-02-09 01:41] LABS: FREE KAPPA LIGHT CHAINS URINE 0.62 mg/L (<=32.90); FREE LAMBDA LIGHT CHAINS URINE < 0.74 mg/L (<=3.79)
[2024-02-09 04:00] VITALS: BP 112/74; TEMP 97; O2SAT 98
[2024-02-09 07:20] LABS: HEMATOCRIT 30.6 % (42.0-52.0); HEMOGLOBIN 10.4 g/dl (13.5-17.5); MEAN CORPUSCULAR HEMOGLOBIN 38.1 pg (27.0-33.0); MEAN CORPUSCULAR VOLUME 112.1 fl (80.0-96.0); RED BLOOD COUNT 2.73 10^6/uL (4.30-6.10); WHITE BLOOD COUNT 2.6 10^3/uL (4.0-10.0)
[2024-02-09 07:35] LABS: PLATELET COUNT, AUTOMATED 89 10^3/uL (150-450)
[2024-02-09 07:48] LABS: ALBUMIN 2.1 G/DL (3.2-5.2); ALKALINE PHOSPHATASE 100 U/L (46-116); ALT/SGPT 20 U/L (7.0-40); AST/SGOT 23 U/L (<34); BILIRUBIN,DIRECT 0.2 MG/DL (<0.4); BILIRUBIN,TOTAL 0.4 MG/DL (0.3-1.2); BLOOD UREA NITROGEN 14 MG/DL (9-23); CALCIUM LEVEL 8.1 MG/DL (8.5-10.1); CARBON DIOXIDE LEVEL 26 MMOL/L (20-31); CHLORIDE LEVEL 105 MMOL/L (98-107); CREATININE FOR GFR 0.53 MG/DL (0.70-1.30); GLOMERULAR FILTRATION RATE > 60.0 (>56); GLUCOSE, FASTING 113 MG/DL (60-100); MAGNESIUM LEVEL 1.7 MG/DL (1.8-2.4); POTASSIUM SERUM 4.8 MMOL/L (3.5-5.1); SODIUM LEVEL 137 MMOL/L (136-145); TOTAL PROTEIN 4.7 G/DL (5.7-8.2)
[2024-02-09] MEDS: MAG SULF 1GM/100ML (MAG RUN) 1 GM in IV 1 EA IV SCH (10:09)
[2024-02-09] MEDS: KETOROLAC 30 MG/ML 1ML VIAL IV PRN (10:34)
[2024-02-09 12:07] VITALS: BP 104/72; TEMP 97.3; O2SAT 100
[2024-02-09 20:00] VITALS: BP 101/70; TEMP 97.5; O2SAT 97
[2024-02-09] MEDS: CALCIUM/VITAMIN D 500 MG TAB PO SCH (20:20)
[2024-02-09] MEDS: POTASSIUM CHLORIDE 10MEQ SR TABLET PO SCH (20:21)
[2024-02-10 04:00] VITALS: BP 104/68; TEMP 97.5; O2SAT 97
[2024-02-10 06:30] LABS: HEMATOCRIT 31.3 % (42.0-52.0); HEMOGLOBIN 10.6 g/dl (13.5-17.5); MEAN CORPUSCULAR HEMOGLOBIN 38.1 pg (27.0-33.0); MEAN CORPUSCULAR HGB CONC 33.9 g/dl (32.0-36.5); MEAN CORPUSCULAR VOLUME 112.6 fl (80.0-96.0); PLATELET COUNT, AUTOMATED 116 10^3/uL (150-450); RED BLOOD COUNT 2.78 10^6/uL (4.30-6.10); WHITE BLOOD COUNT 3.1 10^3/uL (4.0-10.0)
[2024-02-10 07:01] LABS: BLOOD UREA NITROGEN 13 MG/DL (9-23); CALCIUM LEVEL 8.6 MG/DL (8.5-10.1); CARBON DIOXIDE LEVEL 30 MMOL/L (20-31); CHLORIDE LEVEL 105 MMOL/L (98-107); CREATININE FOR GFR 0.57 MG/DL (0.70-1.30); GLOMERULAR FILTRATION RATE > 60.0 (>56); GLUCOSE, FASTING 92 MG/DL (60-100); POTASSIUM SERUM 4.9 MMOL/L (3.5-5.1); SODIUM LEVEL 139 MMOL/L (136-145)
[2024-02-10] MEDS: MOM 30ML SUSPENSION UDC PO ONE (11:06)
[2024-02-10] MEDS ORDERED: SENN-52 PO (11:38)
[2024-02-10] MEDS ORDERED: NAPR-885 PO (11:38)
[2024-02-10] MEDS ORDERED: LIDO5TD TD (11:38)
[2024-02-10] MEDS ORDERED: CYCL5TAB PO (11:38)
[2024-02-10] MEDS ORDERED: MIRA3350 PO (11:39)
[2024-02-10 12:00] VITALS: BP 105/71; TEMP 97.5; O2SAT 99
[2024-02-10] MEDS ORDERED: SYNT75TA PO (13:41)
[2024-02-10] MEDS: MAGNESIUM CITRATE 300ML BTL PO ONE (15:59)
[2024-02-10 21:05] VITALS: BP 105/72; TEMP 97.7; O2SAT 97
[2024-02-10] MEDS: PREGABALIN 50 MG CAP (LYRICA) PO SCH (21:32)
[2024-02-10] MEDS: ACETAMINOPHEN 500 MG TAB PO SCH (21:34)
[2024-02-10] MEDS: NAPROXEN 250 MG TAB PO SCH (21:44)
[2024-02-10] MEDS: NORCO, ANEXSIA 5/325MG TABLET (HYDROcodone/ACETAMINOPHEN) PO PRN (22:58)
[2024-02-11 04:00] VITALS: BP 104/71; TEMP 97.5; O2SAT 97
[2024-02-11 12:00] VITALS: BP 110/76; TEMP 97.9; O2SAT 98
[2024-02-14 20:28] LABS: TESTOSTERONE FREE (DIRECT) 32.8 pg/mL (35.0-155.0)
== END 2024-02-11 16:00 | disposition home or self-care (01) | DRG 347 ==
LOC: M ED 08:47 → EDBD 08:47 → M ED INP 15:21 → M MSPAV 20:50
PROVIDERS: ADMIT Internal Medicine; ATTEND Internal Medicine Nephrology
DX: S32.10XA Unspecified fracture of sacrum, initial encounter for closed fracture (principal); D61.818 Other pancytopenia; E83.42 Hypomagnesemia; E83.51 Hypocalcemia; E87.1 Hypo-osmolality and hyponatremia; S22.42XA Multiple fractures of ribs, left side, initial encounter for closed fracture; K76.0 Fatty (change of) liver, not elsewhere classified; D46.9 Myelodysplastic syndrome, unspecified; E03.9 Hypothyroidism, unspecified; E83.119 Hemochromatosis, unspecified; E87.6 Hypokalemia; K21.9 Gastro-esophageal reflux disease without esophagitis; K80.20 Calculus of gallbladder without cholecystitis without obstruction; R74.01 Elevation of levels of liver transaminase levels; W18.30XA Fall on same level, unspecified, initial encounter; Y92.009 Unspecified place in unspecified non-institutional (private) residence as the place of occurrence of the external cause; Z79.899 Other long term (current) drug therapy; Z88.5 Allergy status to narcotic agent; Z92.21 Personal history of antineoplastic chemotherapy; Z92.3 Personal history of irradiation; Z85.810 Personal history of malignant neoplasm of tongue; K59.00 Constipation, unspecified; R74.02 Elevation of levels of lactic acid dehydrogenase [LDH]

== ENCOUNTER → 2024-02-27 | Outpatient (CLI) | payer BC ==
[~2024-02-27] MED LIST changes: +CYCL5TAB PO; +LIDO5TD TD; +MAGN400T33 PO; +MULT-90 PO; +NAPR-885 PO; +RAME8TAB2 PO; +SENN-52 PO; +SYNT75TA PO
== END ==
LOC: M SOG 15:01
PROVIDERS: ATTEND Physician Assistant
DX: M54.50 Low back pain, unspecified (principal)

== ENCOUNTER → 2024-03-19 | Outpatient (CLI) | payer BC | LOC: M SOG 07:22 | PROVIDERS: ATTEND Physician Assistant | DX: M54.50 Low back pain, unspecified (principal) ==

== ENCOUNTER → 2024-04-30 | Outpatient (CLI) | payer BC ==
[~2024-04-30] MED LIST changes: -CYCL5TAB PO; +CYCL5TAB4 PO
== END ==
LOC: M SOG 13:53
PROVIDERS: ATTEND Physician Assistant
DX: M54.50 Low back pain, unspecified (principal)

== ENCOUNTER → 2024-06-16 | Outpatient (CLI) | payer BC ==
[~2024-06-16] MED LIST changes: -FEXO-117 PO; +FEXO-193 PO
[2024-06-16 17:11] LABS: BACTERIA, URINE AUTO NEGATIVE (NEGATIVE); BILIRUBIN, URINE AUTO NEGATIVE (NEGATIVE); BLOOD, URINE BLOOD NEGATIVE (NEGATIVE); COLOR, URINE COLORLESS (YELLOW); GLUCOSE, URINE (UA) AUTO NEGATIVE (NEGATIVE); KETONE, URINE AUTO NEGATIVE (NEGATIVE); LEUKOCYTE ESTERASE, URINE AUTO NEGATIVE (NEGATIVE); MUCUS, URINE SMALL (NEGATIVE); NITRITE, URINE AUTO NEGATIVE (NEGATIVE); PROTEIN, URINE AUTO NEGATIVE (NEGATIVE); RBC, URINE AUTO 0 /HPF (0-3); SPECIFIC GRAVITY URINE AUTO 1.004 (1.002-1.035); SQUAMOUS EPITHELIAL CELL UR AU 0 /HPF (0-6); UROBILINOGEN, URINE AUTO 0.2 mg/dL (0.0-2.0); WBC, URINE AUTO 0 /HPF (0-3)
[2024-06-16 17:12] LABS: PROSTATIC SPECIFIC AG MONITOR 0.7 NG/ML (< 4.00)
[2024-06-16 17:15] LABS: ALBUMIN 4.1 G/DL (3.2-5.2); BILIRUBIN,DIRECT 0.3 MG/DL (<0.4); BILIRUBIN,TOTAL 0.8 MG/DL (0.3-1.2); CHOLESTEROL RISK RATIO 3.2 (<5); HDL CHOLESTEROL 61.7 MG/DL (>40); LDL CHOLESTEROL 102.7 MG/DL (<100); NON-HDL-C 136.3 MG/DL; TOTAL PROTEIN 7.3 G/DL (5.7-8.2)
[2024-06-16 17:17] LABS: THYROID STIMULATING HORMONE 7.883 uIU/ML (0.55-4.78); TOTAL 25(OH) VITAMIN D 35.6 NG/ML (20.0-100.0)
[2024-06-17 07:09] LABS: APPEARANCE, URINE CLEAR (CLEAR)
== END ==
LOC: M WUC 11:53
PROVIDERS: ATTEND Physician Assistant
DX: C02.1 Malignant neoplasm of border of tongue (principal); R35.1 Nocturia; E78.5 Hyperlipidemia, unspecified; E55.9 Vitamin D deficiency, unspecified; R79.9 Abnormal finding of blood chemistry, unspecified; E03.9 Hypothyroidism, unspecified

== ENCOUNTER → 2024-12-15 | Outpatient (CLI) | payer BC ==
[~2024-12-15] MED LIST changes: -PREG50CA PO; +PREG50CA87 PO
[2024-12-15 18:09] LABS: ALT/SGPT 35 U/L (7.0-40); AST/SGOT 76 U/L (<34); CALCIUM LEVEL 8.7 MG/DL (8.5-10.1); CARBON DIOXIDE LEVEL 32 MMOL/L (20-31); CHLORIDE LEVEL 96 MMOL/L (98-107); CHOLESTEROL LEVEL 140 MG/DL (<200); CHOLESTEROL RISK RATIO 2.82 (<5); CREATININE FOR GFR 0.86 MG/DL (0.70-1.30); GLOMERULAR FILTRATION RATE > 90.0 (>56); LDL CHOLESTEROL 59.4 MG/DL (<100); NON-HDL-C 90.4 MG/DL; POTASSIUM SERUM 3.2 MMOL/L (3.5-5.1); SODIUM LEVEL 143 MMOL/L (136-145); TRIGLYCERIDES LEVEL 155 MG/DL (<150)
[2024-12-15 18:15] LABS: PLATELET COUNT, AUTOMATED 112 10^3/uL (150-450)
[2024-12-15 18:18] LABS: ESTIMATED AVERAGE GLUCOSE 97.0 MG/DL (60-110)
== END ==
LOC: M WUC 13:26
PROVIDERS: ATTEND Physician Assistant
DX: E78.5 Hyperlipidemia, unspecified (principal); R73.01 Impaired fasting glucose; E03.9 Hypothyroidism, unspecified; C02.1 Malignant neoplasm of border of tongue

== ENCOUNTER → 2025-03-19 | Outpatient (CLI) | payer BC ==
[2025-03-23 16:22] LABS: PSA % FREE 25.0 % (calc) (>25); PSA FREE 0.2 ng/mL; PSA TOTAL 0.8 ng/mL (< OR = 4.0)
== END ==
LOC: M WUC 14:03
PROVIDERS: ATTEND Physician Assistant
DX: R35.1 Nocturia (principal)

== ENCOUNTER 2025-05-21 19:34 | Emergency (ER) | payer BC ==
[~2025-05-21] VITALS: Ht 180.3 cm; Wt 82.4 kg
[2025-05-21 20:34] LABS: BASO # 0.0 10^3/uL (0.0-0.2); BASO % 0.4 % (0.0-1.0); EOS # 0.0 10^3/uL (0.0-0.5); EOS % 0.0 % (0.0-3.0); LYMPH # 0.3 10^3/uL (1.5-5.0); LYMPH % 4.6 % (24.0-44.0); MONO # 0.7 10^3/uL (0.0-0.8); MONO % 13.0 % (2.0-8.0); NEUTROPHILS # 4.5 10^3/uL (1.5-8.5); NEUTROPHILS % 81.5 % (36.0-66.0)
[2025-05-21 20:54] LABS: PLATELET CLUMPS SMALL AMT; PLATELET ESTIMATE DECREASED (NORMAL)
[2025-05-21 21:02] LABS: ALT/SGPT 114 U/L (7.0-40); AST/SGOT 438 U/L (<34); CALCIUM LEVEL 8.8 MG/DL (8.5-10.1); CARBON DIOXIDE LEVEL 11 MMOL/L (20-31); CHLORIDE LEVEL 98 MMOL/L (98-107); CREATININE FOR GFR 0.88 MG/DL (0.70-1.30); GLOMERULAR FILTRATION RATE > 90.0 (>56); POTASSIUM SERUM 4.8 MMOL/L (3.5-5.1); SODIUM LEVEL 138 MMOL/L (136-145)
[2025-05-21] MEDS: NS (Normal Saline) 0.9% 1,000 ML IV ONE (21:09)
[2025-05-21] MEDS: ONDANSETRON 4MG/2ML VIAL IV ONE (21:09)
[2025-05-21] MEDS ORDERED: ISOVUE-370 76% 100 ML VIAL As Ordered ONE (22:54)
[2025-05-22] MEDS: NS (Normal Saline) 0.9% 1,000 ML IV ONE ×2 (01:54→05:01)
[2025-05-22] MEDS: ONDANSETRON 4MG/2ML VIAL IV ONE (05:01)
[2025-05-22 06:27] LABS: ALT/SGPT 89.0 U/L (7.0-40); AST/SGOT 329.0 U/L (<34)
[2025-05-22 06:49] LABS: KETONE, URINE AUTO RFX TRACE mg/dL (NEGATIVE); LEUKOCYTE ESTERASE UR AUTO RFX NEGATIVE (NEGATIVE); MUCUS, URINE RFX SMALL (NEGATIVE); NITRITE, URINE AUTO RFX NEGATIVE (NEGATIVE); RBC, URINE AUTO RFX 0 /HPF (0-3); SQUAM EPITHELIAL CELL UR AURFX 0 /HPF (0-6); WBC, URINE AUTO RFX 3 /HPF (0-3)
[2025-05-22] MEDS ORDERED: BUME2TAB3 PO (13:06)
[2025-05-22] MEDS ORDERED: CYCL5TAB4 PO (13:08)
[2025-05-22] MEDS ORDERED: FAMO20TA PO (13:10)
[2025-05-22] MEDS ORDERED: LEVO88TA3 PO (13:10)
[2025-05-22] MEDS ORDERED: ROZE8TAB16 PO (13:15)
[2025-05-22] MEDS ORDERED: HOME MED LIST COMPLETE! XX SCH (13:20)
[2025-05-22] MEDS ORDERED: ONDA-282 PO (14:57)
[2025-05-22 15:00] VITALS: BP 130/97; TEMP 97.8; O2SAT 98
== END 2025-05-22 15:20 | disposition home or self-care (01) ==
LOC: M ED 19:34
DX: K80.20 Calculus of gallbladder without cholecystitis without obstruction (principal); R00.0 Tachycardia, unspecified; K76.0 Fatty (change of) liver, not elsewhere classified; N42.0 Calculus of prostate; Z88.5 Allergy status to narcotic agent; Z79.1 Long term (current) use of non-steroidal anti-inflammatories (NSAID); Z79.899 Other long term (current) drug therapy
CPT/HCPCS: 74177; 74181; 76705; 80048; 80076; 81001; 83690; 84145; 84443; 84484; 85025; 87486; 87581; 87633; 87798; 93005; 96361; 96374; 96375; 99285; J2405; J2765; Q9967

== ENCOUNTER → 2025-05-26 | Outpatient (CLI) | payer BC ==
[~2025-05-26] MED LIST changes: +BUME2TAB3 PO; +FAMO20TA PO; +LEVO88TA3 PO; +ONDA-282 PO; +ROZE8TAB16 PO
[2025-05-26 17:18] LABS: ALT/SGPT 174.0 U/L (7.0-40); AST/SGOT 214.0 U/L (<34)
== END ==
LOC: M LAB 16:24
PROVIDERS: ATTEND Emergency Medicine
DX: R11.2 Nausea with vomiting, unspecified (principal)